=== PATIENT | male | born 1950 | race Caucasian/White ===

== ENCOUNTER → 2016-09-10 | Outpatient (CLI) | payer MEDICARE, OTHER ==
[~2016-09-10] VITALS: Ht 182.9 cm; Wt 151.5 kg
[~2016-09-10] MED LIST: AML2.5T PO; APIX5TAB PO; ASP325TEC PO; ATOR20TA66 PO; BAYETTA; CALC-654 PO; CIPR-225 PO; CYCL10TA9; FINA5TAB6 PO; FLUT9.9S NS; FURO40TA4 PO; HYDR12.5 PO; INSU100V6 SQ; LEVO500T80; LISI-556 PO; METF-380 PO; METO-351 PO; MULT-35 PO; OMEP20TA7 PO; PHEN-640 PO; PIOG15TA9 PO; PIOG30TA PO; POTA10TA10 PO; RT-ALBUINH IH; SITA100T12 PO; TAMS0.4C98 PO; TIOT4MIS5 IH
--- OUTSIDE RECORDS SUMMARY | 2016-09-10 09:14 | XMS REPORT | Continuity of Care Document ---
Author Author [facility] Organization [facility] Address Unknown Phone Unavailable Care Team Providers Care Environmental Permitting Specialist Name Role Phone KATEY FRANCES MD PCP Insurance Providers Payer Name Policy Number Subscriber Name Relationship Wps Medicare [id number] Chris Sheldon 18 Self / Same As Patient [employer] [id number] Chris Sheldon 18 Self / Same As Patient Advance Directives Directive Response Recorded Date/Time Advance Directives No 04/10/16 4:05am Health Care Power of Swatch Checker No 04/10/16 4:05am Organ Donor No 04/10/16 4:05am Resuscitation Status Full Code 04/10/16 4:05am Chief Complaint and Reason for Visit Chief Complaint -Male Reason for Visit [id number] Problems Active Problems Medical Problem Onset Date Status Urinary obstruction Unknown Acute Urinary tract infection Unknown Acute Medications Current Home Medications Medication Dose Units Route Directions Days/Qty Instructions Start Date Aspirin 325 Mg 325 Mg Oral Daily 11/05/14 [[place]] 0.5 Daily 11/05/14 Insulin Glargine 100 Unit/1 Ml 42 Units Sub-Q Am 11/05/14 Insulin Glargine 100 Unit/1 Ml 42 Units Sub-Q Pm 11/05/14 Pioglitazone Hcl 30 Mg 30 Mg Oral Daily 11/05/14 Metformin Hcl (Glucophage) 1,000 Mg 1 Each Oral Twice A Day With Meals 11/05/14 Amlodipine Besylate 2.5 Mg 2.5 Mg G Tube Daily 11/05/14 Lisinopril 5 Mg 5 Mg Oral Daily 11/05/14 Cyclobenzaprine Hcl 10 Mg 30 03/31/16 Tamsulosin Hcl 0.4 Mg 0.4 Mg Oral Daily 30 03/31/16 Ciprofloxacin Hcl 500 Mg 500 Mg Oral Twice A Day 04/03/16 Social History Social History Problem Response Recorded Date/Time Alcohol Use Occasionally Uses 04/10/2016 4:05am Recreational Drug Use No 04/10/2016 4:05am Recent Foreign Travel No 04/10/2016 4:05am Recent Infectious Disease Exposure No 04/10/2016 4:05am Hospitalization with Isolation Denies 04/10/2016 4:05am Smoking Status Former Smoker 04/10/2016 4:05am Do you dip or chew tobacco? No 11/05/2014 7:30am Recent Hopitalizations No 04/10/2016 4:05am Hospitalization with Isolation Denies 04/10/2016 4:05am Query Response Start Date Stop Date Smoking Status Former Smoker 09/30/1989 Hospital Discharge Instructions No hospital discharge instructions. Plan of Care Discharge Date 04/10/16 4:59am Disposition 01 HOME, SELF-CARE Condition at Discharge Improved Instructions/Education Provided Urinary Retention in Men (ED) Prescriptions See Medication Section Referrals XENA STEINER MD - KATEY FRANCES MD - Primary Care Physician KATEY FRANCES MD - Primary Care Physician Additional Instructions/Education All discharge instructions reviewed with patient and/or family. Voiced understanding. Continue [place] catheter. Follow-up with your doctor for recheck and further evaluation. You will need to see urologist. Return for worse pain, fever, vomiting, weakness, breathing problems or other concerns as needed. Functional Status No functional status results. Allergies, Adverse Reactions, Alerts No known allergies. Immunizations No immunization records. Vital Signs Acute Vital Signs Vital Response Date/Time Temperature (Fahrenheit) 98.4 degrees F (97.6 - 99.5) 04/10/2016 4:05am Temperature (Calculated Celsius) 36.64851 degrees C (36.4 - 37.5) 04/10/2016 4:05am Temperature Source Temporal 04/03/2016 7:40am Pulse Rate (adult) 98 bpm (60 - 90) 04/10/2016 4:05am Respiratory Rate 18 bpm (12 - 24) 04/10/2016 4:05am O2 Sat by Pulse Oximetry 97 % (88 - 100) 04/10/2016 4:05am Blood Pressure 181/111 mm Hg 04/10/2016 4:05am Blood Pressure Mean 134 mm Hg 04/10/2016 4:05am Pain Numeric Pain Scale 8 04/10/2016 4:05am Height (Feet) 6 feet 04/10/2016 4:05am Height (Inches) 0 inches 04/10/2016 4:05am Height (Calculated Centimeters) 182.790889 cm 04/10/2016 4:05am Weight (Pounds) 350 pounds 04/10/2016 4:05am Weight (Ounces) 0.0 oz 04/03/2016 10:35am Weight (Calculated Grams) 507682.78 gm 04/03/2016 10:35am Weight (Calculated Kilograms) 158.803103 kilograms 04/10/2016 4:05am Calculated BMI 46.7 04/03/2016 10:35am Capillary Refill Capillary Refill Less Than 3 Seconds 04/10/2016 4:05am Results Laboratory Results Test Name Result Units Flags Reference Collection Date/Time Result Date/ Time Comments Urine Color YELLOW 03/31/2016 7:30am 03/31/2016 7:54am Urine Clarity SLIGHTLY CLOUDY 03/31/2016 7:30am 03/31/2016 7:54am Urine pH 7 5-9 03/31/2016 7:30am 03/31/2016 7:54am Urine Specific [place] 1.010 * 1.016-1.022 03/31/2016 7:30am 2015 7:54am Urine Protein 1+ * NEGATIVE 03/31/2016 7:30am 03/31/2016 7:54am Urine Glucose (UA) NEGATIVE NEGATIVE 03/31/2016 7:30am 03/31/2016 7: 54am Urine RBC (Auto) 1+ * NEGATIVE 03/31/2016 7:30am 03/31/2016 7:54am Urine Ketones NEGATIVE NEGATIVE 03/31/2016 7:30am 03/31/2016 7:54am Urine Nitrite NEGATIVE NEGATIVE 03/31/2016 7:30am 03/31/2016 7:54am Urine Bilirubin NEGATIVE NEGATIVE 03/31/2016 7:30am 03/31/2016 7: 54am Urine Urobilinogen NORMAL MG/DL NORMAL 03/31/2016 7:30am 03/31/2016 7: 54am Urine Leukocyte Esterase NEGATIVE NEGATIVE 03/31/2016 7:30am 2015 7:54am Urine RBC 5-10 /HPF * 03/31/2016 7:30am 03/31/2016 7:54am Urine WBC 0-2 /HPF 03/31/2016 7:30am 03/31/2016 7:54am Urine Bacteria NEGATIVE /HPF 03/31/2016 7:30am 03/31/2016 7:54am Urine Squamous Epithelial Cells RARE /HPF 03/31/2016 7:30am 2015 7:54am Urine Crystals NONE /LPF 03/31/2016 7:30am 03/31/2016 7:54am Urine Casts NONE /LPF 03/31/2016 7:30am 03/31/2016 7:54am Urine Mucus SMALL /LPF * 03/31/2016 7:30am 03/31/2016 7:54am Urine Culture Indicated NO 03/31/2016 7:30am 03/31/2016 7:54am Pending Laboratory Results Test Name Collection Date/Time Pending Microbiology Results Procedure Source Collection Date/Time Procedures No known history of procedures. Encounters Encounter Location Arrival/Admit Date Discharge/Depart Date Attending Provider Departed Emergency Room [facility] 04/10/16 3:56am 04/10 4:59am BENITA VELASQUEZ MD Departed Clinic [facility] 04/03/16 10:11am 04/03/16 11: 01am ELVIRA STEVENSON MD Departed Emergency Room [facility] 04/03/16 7:32am 04/03 8:37am TESS REYES MD Registered Clinic [facility] 04/02/16 9:09am ELVIRA STEVENSON MD Departed Emergency Room [facility] 03/31/16 6:52am 03/31 8:26am TESS REYES MD Recent Diagnosis
== END ==
LOC: PREOP 09:10
PROVIDERS: ATTEND Urology
DX: Z01.818 Encounter for other preprocedural examination (principal); Z11.2 Encounter for screening for other bacterial diseases; N40.0 Benign prostatic hyperplasia without lower urinary tract symptoms
CPT/HCPCS: 87081; 93005

== ENCOUNTER 2016-09-15 07:28 | Day surgery (SDC) | payer MEDICARE, OTHER ==
[~2016-09-15] VITALS: Ht 182.9 cm; Wt 151.5 kg
--- NOTE | 2016-09-15 07:14 | Progress Note-Post Operative ---
Post-Operative Progess Note Pre-Operative Diagnosis BPH WITH PROSTATISM Post-Operative Diagnosis SAME AND MEATAL STENOSIS Post-Op Procedure Note Date of Procedure: Sep 15, 2016 Name of Procedure: UD AND UROLIFT IMPLANT Anesthesia Type GENERAL Estimated blood loss (mL): XENA REYES MD Sep 15, 2016 7:14 am
--- NOTE | 2016-09-15 07:14 | Progress Note-Pre Operative ---
Pre-Operative Progress Note H&P Reviewed The H&P was reviewed, patient examined and no changes noted. Date H&P Reviewed: Sep 15, 2016 Time H&P Reviewed: 07:13 Pre-Operative Diagnosis: BPH WITH PROSTATISM XENA STEINER MD Sep 15, 2016 7:14 am
--- NOTE | 2016-09-15 07:16 | Discharge Inst-Urology ---
Discharge Inst-Urology Discharge Medications New, Converted, or Re-newed RX: RX on Chart Patient Instructions/Follow Up Plan Please make appointment to been seen in office in 2 weeks. Keep bowels soft and moving In one week, if no bleeding, may resume ASA Increase oral fluids for 48 hours and then as needed. Diet and Activity as tolerated. If questions or concerns contact your physician Or seek help at emergency department. XENA STEINER MD Sep 15, 2016 7:16 am
[~2016-09-15 07:28] MED LIST changes: -PHEN-640 PO
--- OUTSIDE RECORDS SUMMARY | 2016-09-15 07:31 | XMS REPORT | Continuity of Care Document ---
Author Author [facility] Organization [facility] Address Unknown Phone Unavailable Care Team Providers Care Vp Digital Marketing Social Media And Crm Name Role Phone KATEY FRANCES MD PCP Insurance Providers Payer Name Policy Number Subscriber Name Relationship Wps Medicare [id number] Chris Sheldon 18 Self / Same As Patient [employer] [id number] Chris Sheldon 18 Self / Same As Patient Advance Directives Directive Response Recorded Date/Time Advance Directives No 04/10/16 4:05am Health Care Power of Decision Support Manager No 04/10/16 4:05am Organ Donor No 04/10/16 4:05am Resuscitation Status Full Code 04/10/16 4:05am Chief Complaint and Reason for Visit Chief Complaint -Male Reason for Visit [id number] Problems Active Problems Medical Problem Onset Date [...] - 99.5) 04/10/2016 4:05am Temperature (Calculated Celsius) 36.99543 degrees C (36.4 - 37.5) 04/10/2016 4:05am [...] 0 inches 04/10/2016 4:05am Height (Calculated Centimeters) 182.587594 cm 04/10/2016 4:05am Weight (Pounds) 350 pounds 04/10/2016 4:05am Weight (Ounces) 0.0 oz 04/03/2016 10:35am Weight (Calculated Grams) 408617.78 gm 04/03/2016 10:35am Weight (Calculated Kilograms) 158.322239 kilograms 04/10/2016 4:05am Calculated BMI 46.7 04/03/2016 10:35am Capillary Refill Capillary Refill Less Than 3 Seconds 04/10/2016 4:05am Results Laboratory Results Test Name Result Units Flags Reference Collection Date/Time Result Date/ Time Comments Urine Color YELLOW 03/31/2016 7:30am 03/31/2016 7:54am Urine Clarity SLIGHTLY CLOUDY 03/31/2016 7:30am 03/31/2016 7:54am Urine pH 7 5-9 03/31/2016 7:30am 03/31/2016 7:54am Urine Specific [place] 1.010 * 1.016-1.022 03/31/2016 7:30am 2015 7:54am [...] Date Attending Provider Departed Emergency Room [facility] 04/10/16 3:56am 04/10 4:59am BENITA VELASQUEZ MD Departed Clinic [facility] 04/03/16 10:11am 04/03/16 11: 01am ELVIRA STEVENSON MD Departed Emergency Room [facility] 04/03/16 7:32am 04/03 8:37am TESS REYES MD Registered Clinic [facility] 04/02/16 9:09am ELVIRA STEVENSON MD Departed Emergency Room [facility] 03/31/16 6:52am 03/31 8:26am TESS REYES MD Recent Diagnosis
--- OUTSIDE RECORDS SUMMARY | 2016-09-15 07:31 | XMS REPORT | Continuity of Care Document ---
Author Author [facility] Organization [facility] Address Unknown Phone Unavailable Care Team Providers Care Industrial Nurse Name Role Phone KATEY FRANCES MD PCP Insurance Providers Payer Name Policy Number Subscriber Name Relationship Wps Medicare [id number] Chris Sheldon 18 Self / Same As Patient [employer] [id number] Chris Sheldon 18 Self / Same As Patient Advance Directives Directive Response Recorded Date/Time Advance Directives No 04/10/16 4:05am Health Care Power of Centrifugal Drier Operator No 04/10/16 4:05am Organ Donor No 04/10/16 4:05am Resuscitation Status Full Code 04/10/16 4:05am Chief Complaint and Reason for Visit Chief Complaint -Male Reason for Visit [id number] Problems Active Problems Medical Problem Onset Date [...] - 99.5) 04/10/2016 4:05am Temperature (Calculated Celsius) 36.92788 degrees C (36.4 - 37.5) 04/10/2016 4:05am [...] 0 inches 04/10/2016 4:05am Height (Calculated Centimeters) 182.854207 cm 04/10/2016 4:05am Weight (Pounds) 350 pounds 04/10/2016 4:05am Weight (Ounces) 0.0 oz 04/03/2016 10:35am Weight (Calculated Grams) 863938.78 gm 04/03/2016 10:35am Weight (Calculated Kilograms) 158.460377 kilograms 04/10/2016 4:05am Calculated BMI 46.7 04/03/2016 10:35am Capillary Refill Capillary Refill Less Than 3 Seconds 04/10/2016 4:05am Results Laboratory Results Test Name Result Units Flags Reference Collection Date/Time Result Date/ Time Comments Urine Color YELLOW 03/31/2016 7:30am 03/31/2016 7:54am Urine Clarity SLIGHTLY CLOUDY 03/31/2016 7:30am 03/31/2016 7:54am Urine pH 7 5-9 03/31/2016 7:30am 03/31/2016 7:54am Urine Specific [place] 1.010 * 1.016-1.022 03/31/2016 7:30am 2015 7:54am [...] Date Attending Provider Departed Emergency Room [facility] 04/10/16 3:56am 04/10 4:59am BENITA VELASQUEZ MD Departed Clinic [facility] 04/03/16 10:11am 04/03/16 11: 01am ELVIRA STEVENSON MD Departed Emergency Room [facility] 04/03/16 7:32am 04/03 8:37am TESS REYES MD Registered Clinic [facility] 04/02/16 9:09am ELVIRA STEVENSON MD Departed Emergency Room [facility] 03/31/16 6:52am 03/31 8:26am TESS REYES MD Recent Diagnosis
[2016-09-15] MEDS ORDERED: LEVOFLOXACIN 250 MG/50 ML IVPB 50 ML ONE (07:41)
[2016-09-15] MEDS ORDERED: FAMOTIDINE 20MG/2ML IV (PEPCID) IV ONE (08:15)
[2016-09-15] MEDS ORDERED: LACTATED RINGERS 1,000 ML IV PRN (08:15)
[2016-09-15 08:16] VITALS: BP 158/79
[2016-09-15] MEDS ORDERED: LEVOFLOXACIN 250 MG/D5W 50 ML (PRE-MIX) IV ONE (08:30)
[2016-09-15] MEDS ORDERED: LIDOCAINE PF 2% 10 ML (XYLOCAINE) AMP ONE (09:10)
[2016-09-15] MEDS ORDERED: ONDANSETRON 4 MG/2 ML (SDV) Z0FRAN ONE (09:10)
[2016-09-15] MEDS ORDERED: LACTATED RINGERS 1,000 ML IV ONE (09:10)
[2016-09-15] MEDS ORDERED: proPOfol 200 MG/20 ML (DIPRIVAN) VIAL IV ONE (09:10)
[2016-09-15] MEDS ORDERED: MIDAZOLAM 2 MG/2 ML (VERSED) VIAL ONE (09:11)
[2016-09-15] MEDS ORDERED: fentaNYL INJECTION 100 MCG/2 ML AMP ONE (09:11)
[2016-09-15] MEDS ORDERED: SEVOFLURANE (ULTANE) 15 ML INHAL SOLN ONE (09:54)
[2016-09-15] MEDS ORDERED: PROMETHAZINE INJ 25 MG/ML (PHENERGAN) AMP IV PRN ×2 (10:15→11:30)
[2016-09-15] MEDS ORDERED: ONDANSETRON 4 MG/2 ML (SDV) Z0FRAN IV PRN ×2 (10:15→11:30)
[2016-09-15] MEDS ORDERED: morphine INJ 10 MG/ML 1ML (SYR OR VIAL) IV PRN ×2 (10:15→11:30)
[2016-09-15 10:50] VITALS: BP 162/73
[2016-09-15] MEDS ORDERED: CIPR-225 PO (10:58)
[2016-09-15] MEDS ORDERED: PHEN-640 PO (10:58)
[2016-09-15 11:20] VITALS: BP 159/71
[2016-09-15 11:40] VITALS: BP_SYST 158; BP_SYST 159; BP_DIAS 71; BP_DIAS 79
--- NOTE | 2016-09-16 07:34 | OPERATIVE REPORT ---
PROCEDURE PHYSICIAN: XENA STEINER DATE OF PROCEDURE: 09/15/2016 PREOPERATIVE DIAGNOSIS: BPH with prostatism. POSTOPERATIVE DIAGNOSIS: 1. BPH with prostatism. 2. Meatal stenosis. OPERATION PERFORMED: Urethral dilatation and UroLift implant. SURGEON: Dr. Steiner. ANESTHESIA: General. COMPLICATIONS: None. PROCEDURE: Under satisfactory general anesthesia, the patient in lithotomy position, the genitalia were prepped and draped in the usual sterile fashion. Meatal stenosis was found and dilated from 20-Taiwanese to 24-Taiwanese to accommodate the 20-Taiwanese cystoscope, again visualized the 2 lateral lobes enlargement with a total sizes calculated preoperatively at 68 mL. There was no median lobe. We went ahead and inserted 6 UroLift implants, 3 on each side with excellent opening anteriorly with minimal bleeding. The bladder was evacuated and the cystoscope was removed. Estimated blood loss negligible. The patient tolerated the procedure and anesthesia well and was sent to recovery room in stable condition. Job ID: [id number] Dictated Date: 09/15/2016 10:03:35 Engineering Tech Date: 09/16/2016 07:31:10 / artur
== END 2016-09-15 11:40 | disposition home or self-care (01) ==
LOC: SDC 07:28
PROVIDERS: ATTEND Urology
DX: N40.0 Benign prostatic hyperplasia without lower urinary tract symptoms (principal); N35.9 Urethral stricture, unspecified; E11.9 Type 2 diabetes mellitus without complications; Z79.4 Long term (current) use of insulin
CPT/HCPCS: 82962

== ENCOUNTER → 2016-10-27 | Outpatient (CLI) | payer MEDICARE, OTHER ==
[~2016-10-27] MED LIST changes: +PHEN-640 PO
--- NOTE | 2016-10-28 11:13 | ECHOCARDIOGRAPHY REPORT ---
PROCEDURE PHYSICIAN: ALICIA ROWE DATE OF PROCEDURE: 10/27/2016 TWO DIMENSIONAL ECHOCARDIOGRAM REPORT PRIMARY PHYSICIAN: OTHER PHYSICIAN: REFERRING PHYSICIAN: Dr. Francois ORDERING PHYSICIAN: INDICATION FOR THE PROCEDURE: Paroxysmal atrial fibrillation, hypertension. MEASUREMENTS DERIVED VALUES LV DIAMETER (LAX) NORMALS NORMALS Diastolic 3.7 (3.6-5.2) Eject. Fract. 60% (60%+/-6%) Systolic (2.3-3.9) Diastolic Vol. % Shortening (0.22-0.42) Systolic Vol. Aortic Root IVS THICKNESS Diastolic 1.2 (0.6-1.1) LVPW THICKNESS Diastolic 1.2 (0.6-1.1) LA DIAMETER Systolic 3.8 (2.1-3.7) FINDINGS: 1. Technical quality is good. 2. The left ventricle is normal in size with normal contractility. Systolic function appeared to be normal. Estimated ejection fraction 60%. 3. The left atrium is normal in size. No clot or thrombus were seen within the left atrium. 4. The right atrium and right ventricle are normal in size. No clot or thrombus were seen within the right side. 5. Mitral valve is normal in morphology with mild mitral regurgitation noted by color Doppler flow. No mitral valve prolapse. No mitral valve stenosis. 6. Aortic valve is trileaflet with normal opening and closing pattern. No significant aortic valve stenosis or regurgitation was seen. 7. Tricuspid valve is normal in morphology with mild tricuspid regurgitation noted by color Doppler flow. Doppler across tricuspid valve estimated pulmonary artery pressure of 23+ right atrial pressure. 8. Pulmonic valve is functioning normally. 9. No pericardial effusion. CONCLUSION: 1. Mild left ventricular hypertrophy noted diffusely. Systolic function appeared to be normal. Estimated ejection fraction 60%. 2. Mild mitral and tricuspid regurgitation. 3. Estimated pulmonary artery pressure of 30 mmHg. Job ID: [id number] Dictated Date: 10/27/2016 14:56:15 K9 Handler Date: 10/28/2016 11:09:09 / nicole
== END ==
LOC: CARD 08:10
PROVIDERS: ATTEND Internal Medicine Cardiovascular Disease
DX: I48.0 Paroxysmal atrial fibrillation (principal); I10 Essential (primary) hypertension; E13.9 Other specified diabetes mellitus without complications; J44.9 Chronic obstructive pulmonary disease, unspecified; M53.3 Sacrococcygeal disorders, not elsewhere classified
CPT/HCPCS: 93306

== ENCOUNTER → 2016-11-02 | Outpatient (CLI) | payer MEDICARE, OTHER ==
[~2016-11-02] VITALS: Ht 185.4 cm; Wt 155.6 kg
[~2016-11-02] MED LIST changes: +CATHETER FLUSH 10 ML SYR IV PRN; +REGADENOSON 0.4 MG/5 ML SYR (LEXISCAN) IV ONE
[2016-11-02 09:14] VITALS: BP 163/99
[2016-11-02 09:16] VITALS: BP 192/103
--- NOTE | 2016-11-02 13:40 | STRESS TEST ---
DATE OF SERVICE: 11/02/2016 REFERRING PHYSICIAN: Dr. Francois. PROCEDURE: Lexiscan Myoview stress test. INDICATION: Baseline heart rate is 90, baseline blood pressure 149/53, baseline EKG is sinus rhythm with no ischemic changes, right bundle branch block. IN SUMMARY: The patient was injected with 10.78 mCi of technetium-99 Myoview and the resting images were obtained. Then the patient received 0.4 mg of Lexiscan followed by 33.8 mCi of technetium-99 Myoview. Throughout the test, there were no EKG changes. The resting and stress images were reviewed and compared in the short axis, horizontal long axis and vertical long axis views. Review of images showed diaphragmatic attenuation with typical male pattern. No significant ischemia or infarction was seen. Mild increased uptake at the inferoapical segment with subtle reversibility. IN SUMMARY: 1. The patient tolerated Lexiscan well. 2. Diaphragmatic attenuation with typical male pattern. 3. No significant ischemia or infarction on SPECT images. 4. Normal left ventricular size with normal contractility. Calculated ejection fraction 61%. Job ID: [id number] DocumentID: [id number] Dictated Date: 11/02/2016 12:06:42 Palliative Care Nurse Date: 11/02/2016 13:01:02 Dictated By: ALICIA ROWE MD
== END ==
LOC: CARD 07:44
PROVIDERS: ATTEND Internal Medicine Cardiovascular Disease
DX: I48.0 Paroxysmal atrial fibrillation (principal); I10 Essential (primary) hypertension; E11.9 Type 2 diabetes mellitus without complications; J44.9 Chronic obstructive pulmonary disease, unspecified; M53.3 Sacrococcygeal disorders, not elsewhere classified
CPT/HCPCS: 78452; 93017

== ENCOUNTER → 2017-06-29 | Outpatient (CLI) | payer MEDICARE, OTHER ==
[~2017-06-29] MED LIST changes: -CATHETER FLUSH 10 ML SYR IV PRN; -REGADENOSON 0.4 MG/5 ML SYR (LEXISCAN) IV ONE
--- NOTE | 2017-06-29 14:52 | Diagnostic Imaging Report ---
PROCEDURE: US Thyroid. TECHNIQUE: Multiple Real-time grayscale images were obtained of the thyroid in various projections. INDICATION: Abnormal thyroid exam. Lump. FINDINGS: The right thyroid lobe is 4.7 x 1.5 x 1.6 cm. The left lobe is 4.8 x 1.6 x 2 cm. In the lower aspect of the right thyroid lobe, there is a 2 x 1.4 x 2.1 cm hypoechoic nodule. Internal vascularity is demonstrated with color Doppler. The left lobe demonstrates an inferior nodule measuring 0.6 x 0.8 cm. No prior studies are available for comparison. IMPRESSION: Nonspecific thyroid nodules up to 2.1 cm in the inferior aspect of the right lobe. Evaluation with ultrasound guided biopsy is suggested. The report was faxed to the office of Dr. Shivam Francois by NASREEN@2:55 PM. Dictated by: Dictated on workstation # [id number]
== END ==
LOC: RAD 12:02
PROVIDERS: ATTEND Internal Medicine
DX: E04.2 Nontoxic multinodular goiter (principal)
CPT/HCPCS: 76536

== ENCOUNTER → 2017-07-28 | Outpatient (CLI) | payer MEDICARE, OTHER ==
[~2017-07-28] VITALS: Ht 185.4 cm; Wt 155.6 kg
[~2017-07-28] MED LIST changes: +LIDOCAINE 1% INJ 20 ML (XYLOCAINE) VIAL INJ ONE; +LIDOCAINE 1% INJ 50 ML (XYLOCAINE) VIAL ONE
[2017-07-28 08:00] VITALS: BP 134/81
[2017-07-28 08:56] VITALS: BP 130/80
--- NOTE | 2017-07-28 11:52 | Diagnostic Imaging Report ---
INDICATION: Right thyroid nodule. The patient presents for an ultrasound guided thyroid biopsy. TECHNIQUE: The patient was brought to the procedure room and placed on the bed in the supine position. Ultrasound imaging over the neck was performed to evaluate for an appropriate entry site. The right neck was then prepped and draped in the usual sterile fashion. A small amount of 1% lidocaine was utilized for local anesthesia. An 18-gauge coaxial Temno needle was advanced and placed with the tip at the margin of the hypoechoic nodule noted at the junction of the right lobe and isthmus. A total of three core biopsies was obtained. The needle was removed and hemostasis was obtained. The patient tolerated the procedure well and left the Department in stable condition. IMPRESSION: Successful ultrasound-guided core biopsy of the hypoechoic solid nodule in the right lobe of the thyroid. Dictated by: Dictated on workstation # [id number]
== END ==
LOC: RAD 07:40
PROVIDERS: ATTEND Internal Medicine
DX: E04.1 Nontoxic single thyroid nodule (principal)

== ENCOUNTER → 2019-03-16 | Outpatient (CLI) | payer MEDICARE, OTHER ==
[~2019-03-16] MED LIST changes: -LIDOCAINE 1% INJ 20 ML (XYLOCAINE) VIAL INJ ONE; -LIDOCAINE 1% INJ 50 ML (XYLOCAINE) VIAL ONE
--- NOTE | 2019-03-16 11:59 | Diagnostic Imaging Report ---
PROCEDURE: US Thyroid. TECHNIQUE: Multiple real-time grayscale images were obtained of the thyroid in various projections. INDICATION: Followup thyroid nodules. Correlation is made with prior thyroid ultrasound from 06/29/2017. The right lobe of thyroid measures 4.8 x 1.9 x 2.1 cm and the left lobe measures 4.5 x 1.5 x 2.5 cm. Isthmus is 4 mm in thickness. Circumscribed hypoechoic solid nodule lower pole right lobe is again noted. This measures 2.2 x 1.8 x 2.2 cm. This shows very little change when compared to the prior exam. No internal vascularity is seen. This was previously biopsied. There is a hypoechoic nodule lower pole left lobe approximately 7 mm x 6 mm, stable. No new mass is seen. Impression: Stable thyroid ultrasound when compared examination from 06/29/2017. Dictated by: Dictated on workstation # [id number]
== END ==
LOC: RAD 10:51
PROVIDERS: ATTEND Internal Medicine
DX: E04.2 Nontoxic multinodular goiter (principal)
CPT/HCPCS: 76536

== ENCOUNTER 2019-06-30 08:21 | Outpatient (CLI) | payer MEDICARE, OTHER ==
[~2019-06-30] VITALS: Ht 182 cm; Wt 158.4 kg
[2019-06-30 08:43] VITALS: BP 151/75
[2019-06-30 09:14] LABS: BASOPHILS % (AUTO) 0 % (0-10); EOSINOPHILS % (AUTO) 0 % (0-10); HEMATOCRIT 36 % (40-54); HEMOGLOBIN 11.4 G/DL (13.3-17.7); LYMPHOCYTES # (AUTO) 1.1 X 10^3 (1.0-4.0); LYMPHOCYTES % (AUTO) 9 % (12-44); MEAN CORPUSCULAR HEMOGLOBIN 27 PG (25-34); MEAN CORPUSCULAR HGB CONC 32 G/DL (32-36); MEAN CORPUSCULAR VOLUME 84 FL (80-99); MEAN PLATELET VOLUME 10.4 FL (7.4-10.4); MONOCYTES # (AUTO) 0.5 X 10^3 (0.0-1.0); MONOCYTES % (AUTO) 5 % (0-12); NEUTROPHILS # (AUTO) 9.9 X 10^3 (1.8-7.8); NEUTROPHILS % (AUTO) 86 % (42-75); PLATELET COUNT 279 10^3/uL (130-400); RED CELL DISTRIBUTION WIDTH 15.2 % (10.0-14.5); WHITE BLOOD COUNT 11.5 10^3/uL (4.3-11.0)
[2019-06-30 09:14] LABS: BILIRUBIN,URINE NEGATIVE (NEGATIVE); CLARITY,URINE CLEAR; COLOR,URINE YELLOW; GLUCOSE, URINE (UA) NEGATIVE (NEGATIVE); KETONES,URINE NEGATIVE (NEGATIVE); LEUKOCYTE ESTERASE ,URINE NEGATIVE (NEGATIVE); NITRITE,URINE NEGATIVE (NEGATIVE); PH,URINE 5.5 (5-9); PROTEIN,URINE NEGATIVE (NEGATIVE)
[2019-06-30 09:24] LABS: BACTERIA,URINE TRACE /HPF; SQUAMOUS EPITHELIAL CELL,UR 0-2 /HPF
[2019-06-30 09:25] LABS: INR 1.3 (0.8-1.4); PROTHROMBIN TIME PATIENT 16.6 SEC (12.2-14.7)
[2019-06-30 09:34] LABS: ALBUMIN 4.2 GM/DL (3.2-4.5); BILIRUBIN,TOTAL 0.8 MG/DL (0.1-1.0); CALCIUM 8.4 MG/DL (8.5-10.1); CREATININE SERUM 1.22 MG/DL (0.60-1.30); POTASSIUM 5.3 MMOL/L (3.6-5.0); TOTAL PROTEIN 7.6 GM/DL (6.4-8.2)
[2019-06-30 09:48] LABS: ERYTHROCYTE SEDIMENTATION RATE 47 MM/HR (0-30)
--- NOTE | 2019-06-30 10:09 | Diagnostic Imaging Report ---
INDICATION: Preop for knee replacement PA and lateral chest obtained at 0916 a.m. Heart and mediastinal silhouette are normal in appearance. The lungs are clear. There is no pneumothorax or pleural fluid. There are diffuse degenerative findings in the thoracic spine. IMPRESSION: No acute process in the chest Dictated by: Dictated on workstation # [id number]
[2019-06-30] MEDS ORDERED: AMLO10TA7 PO (13:10)
[2019-06-30] MEDS ORDERED: OMEP20CA13 PO (13:10)
[2019-06-30] MEDS ORDERED: METO-370 PO (13:10)
[2019-06-30] MEDS ORDERED: HYDR25TA4 PO (13:10)
[2019-06-30] MEDS ORDERED: LISI40TA PO (13:10)
[2019-06-30] MEDS ORDERED: METF-399 PO (13:10)
[2019-06-30] MEDS ORDERED: INSU100V6 SQ (13:10)
[2019-06-30] MEDS ORDERED: MAGN400T39 PO (13:10)
[2019-06-30] MEDS ORDERED: POTA20TA15 PO (13:10)
[2019-06-30] MEDS ORDERED: TAMS0.4C98 PO (13:10)
[2019-06-30] MEDS ORDERED: PIOG30TA71 PO (13:10)
[2019-06-30] MEDS ORDERED: MULT1TAB69 PO (13:10)
[2019-06-30] MEDS ORDERED: TIOT4MIS2 IH (13:12)
== END 2019-06-30 12:39 | disposition home or self-care (01) ==
LOC: PREOP 08:21
PROVIDERS: ATTEND Orthopaedic Surgery
DX: Z01.818 Encounter for other preprocedural examination (principal); M17.12 Unilateral primary osteoarthritis, left knee; R53.83 Other fatigue
CPT/HCPCS: 36415; 71046; 80053; 81000; 85025; 85610; 85652; 86850; 86900; 86901; 87081; 93005

== ENCOUNTER 2019-12-15 08:05 | Outpatient (RCR) | payer MEDICARE, OTHER ==
[~2019-12-15] VITALS: Ht 185 cm; Wt 156.0 kg
[~2019-12-15 08:05] MED LIST changes: +ALOG25TA PO; +AMLO10TA7 PO; +HYDR25TA4 PO; +LISI40TA PO; +MAGN400T39 PO; +METF-399 PO; +METO50TA7 PO; +MULT1TAB69 PO; +OMEP20CA18 PO; +PIOG30TA71 PO; +POTA20TA15 PO; +ROSU5TAB PO; -TAMS0.4C98 PO; +TIOT4MIS2 IH; +TMSL.4C PO
== END 2019-12-15 14:03 | disposition home or self-care (01) ==
LOC: PREOP 08:05
PROVIDERS: ATTEND Surgery
DX: Z01.818 Encounter for other preprocedural examination (principal); Z11.59 Encounter for screening for other viral diseases; Z80.0 Family history of malignant neoplasm of digestive organs
CPT/HCPCS: 87635

== ENCOUNTER 2019-12-20 08:47 | Day surgery (SDC) | payer MEDICARE, OTHER ==
[~2019-12-20] VITALS: Ht 185 cm; Wt 156.0 kg
[2019-12-20] MEDS ORDERED: LACTATED RINGERS 1,000 ML IV STA (09:01)
[2019-12-20] MEDS ORDERED: LACTATED RINGERS 1,000 ML IV ONE (09:04)
[2019-12-20 09:14] VITALS: BP 146/75
[2019-12-20] MEDS ORDERED: LIDOCAINE JELLY 2% 6 ML SYRINGE MM PRN (09:15)
[2019-12-20] MEDS ORDERED: PROPOFOL INJECTION 50 ML IV ONE (09:48)
[2019-12-20] MEDS ORDERED: LIDOCAINE JELLY 2% 6 ML SYRINGE ONE (09:59)
[2019-12-20] MEDS ORDERED: MIDAZOLAM 2 MG/2 ML (VERSED) VIAL ONE (10:08)
--- NOTE | 2019-12-20 10:08 | Progress Note-Pre Operative ---
Pre-Operative Progress Note H&P Reviewed The H&P was reviewed, patient examined and no changes noted. Date Seen by Provider: Dec 20, 2019 Time Seen by Provider: :30 Date H&P Reviewed: Dec 20, 2019 Time H&P Reviewed: 09:30 Pre-Operative Diagnosis: screening colonoscopy LAURA LOPEZ MD Dec 20, 2019 10:08
--- NOTE | 2019-12-20 10:10 | Discharge Inst-Surgical ---
D/C Lap Instructions-JOHN Follow Up Activity as tolerated High Fiber Diet 25g or more per day Avoid Alcohol, Caffeine, Spicy [place] and Acid foods. Drink 64 fluid oz or more of fluids per day. Symptoms to Report: Fever over 101 degree F, Nausea/Vomiting If any problems/questions: Contact your physician or go to Emergency Room LAURA LOPEZ MD Dec 20, 2019 10:10
[2019-12-20] MEDS ORDERED: HYDROcodone/APAP 5 MG/325 MG (LORTAB) TAB PO PRN (10:15)
[2019-12-20] MEDS ORDERED: morphine INJ 10 MG/ML 1ML (SYR OR VIAL) IVP PRN ×2 (10:15)
[2019-12-20] MEDS ORDERED: ONDANSETRON 4 MG/2 ML (SDV) Z0FRAN IVP PRN (10:15)
[2019-12-20] MEDS ORDERED: ACETAMINOPHEN 325 MG TABLET PO PRN (10:15)
[2019-12-20 10:25] VITALS: BP 122/72
[2019-12-20 10:30] VITALS: BP 112/61
[2019-12-20 10:35] VITALS: BP_SYST 112; BP_SYST 114; BP_DIAS 73; BP_DIAS 77
--- NOTE | 2019-12-20 10:37 | Progress Note-Post Operative ---
Post-Operative Progess Note Surgeon (s)/Motor Vehicle Field Representative (s) Surgeon LAURA LOPEZ MD Motor Vehicle Field Representative: none Pre-Operative Diagnosis screening colonoscopy Post-Operative Diagnosis benign anal tag, chronic stage 2 ext and int hemorrhoids, mild sigmoid diverticulosis. Procedure & Operative Findings Date of Procedure 12/20/19 Procedure Performed/Findings colonoscopy Anesthesia Type mac Estimated Blood Loss Estimated blood loss (mL): minimal Specimens/Packing Specimens Removed none LAURA LOPEZ MD Dec 20, 2019 10:37
--- NOTE | 2019-12-20 10:49 | Anesthesia-General Post-Op ---
MAC Patient Condition Mental Status/LOC: Same as Preop Cardiovascular: Satisfactory Nausea/Vomiting: Absent Respiratory: Satisfactory Pain: Controlled Complications: Absent Post Op Complications Complications None Follow Up Care/Instructions Patient Instructions None needed. Anesthesiology Discharge Order Discharge Order Patient is doing well, no complaints, stable vital signs, no apparent adverse anesthesia problems. DAMON PASTOR DO Dec 20, 2019 10:48
[2019-12-20 11:01] VITALS: BP 143/62
[2019-12-20 11:02] VITALS: BP 143/62
--- NOTE | 2019-12-20 15:56 | OPERATIVE REPORT ---
DATE OF SERVICE: 12/20/2019 ATTENDING PRIMARY CARE PHYSICIAN: Dr. Shivam Francois. PREOPERATIVE DIAGNOSIS: Screening colonoscopy with a remote family history of colon cancer. POSTOPERATIVE DIAGNOSES: Benign anal skin tag, chronic stage II external and internal hemorrhoids, mild sigmoid diverticulosis. PROCEDURE: Colonoscopy. SURGEON: Laura Lopez MD. ANESTHESIA: Monitored anesthesia care. ESTIMATED BLOOD LOSS: Minimal. FINDINGS: Benign anal tag, chronic stage II external and internal hemorrhoids, mild sigmoid diverticulosis. DISPOSITION: The patient tolerated the procedure well. INDICATIONS: The patient is a 69-year-old male referred over to us for screening colonoscopy. He does have a remote family history of colon cancer with his paternal grandfather having the disease. His last colonoscopy was approximately 5 years ago and he believes this to be normal. For the most part, he is doing well, does not report any major issues with diarrhea nor constipation as well as no red blood per rectum nor any dark tarry stools. He did have a right hemicolectomy in 1971 while he was in the . DESCRIPTION OF PROCEDURE: The patient was brought to the endoscopy suite, laid in left lateral decubitus position. After adequate IV pain and sedative medications and monitored anesthesia care, a digital rectal examination was performed. An anal tag was identified, which appeared to be benign. There was chronic stage II external and internal hemorrhoids, not actively edematous nor inflamed and no bleeding. Normal sphincter tone was felt and there were no palpable masses. There were no abnormalities detected on prostatic urethral examination. The endoscope was then intubated to the anus and rectum gently insufflated. The endoscope was then advanced to the valves of Frausto and rectum with no polyps or any neoplasms identified. Through the sigmoid colon, mild sigmoid diverticulosis identified. There were no mucosal inflammatory changes to indicate any diverticulitis. The endoscope was then advanced to the remainder of the descending, transverse and ascending colon to the cecum. These segments were normal. There were no polyps or any neoplasms identified throughout the colon or rectum. The endoscope was then slowly withdrawn while taking a second look and suctioning of residual air with no additional findings. The patient tolerated the procedure well. We will recommend medical management with a high fiber diet with 30 grams of fiber daily as well as significant amounts of water to promote soft stools on a daily basis. No polyps were identified and he does not have a first degree family history of colon cancer and so he may wait 10 years for his next colonoscopy if he is asymptomatic. Job ID: [id number] DocumentID: [id number] Dictated Date: 12/20/2019 10:32:57 Sheep Shearer Date: 12/20/2019 15:56:02 Dictated By: LAURA LOPEZ MD MTDD
== END 2019-12-20 11:05 | disposition home or self-care (01) ==
LOC: ENDO 08:47
PROVIDERS: ATTEND Surgery
DX: Z12.11 Encounter for screening for malignant neoplasm of colon (principal); K64.4 Residual hemorrhoidal skin tags; K64.1 Second degree hemorrhoids; K57.30 Diverticulosis of large intestine without perforation or abscess without bleeding; K21.9 Gastro-esophageal reflux disease without esophagitis; I10 Essential (primary) hypertension; I48.91 Unspecified atrial fibrillation; E78.5 Hyperlipidemia, unspecified; J44.9 Chronic obstructive pulmonary disease, unspecified; G47.33 Obstructive sleep apnea (adult) (pediatric); E11.9 Type 2 diabetes mellitus without complications; E78.00 Pure hypercholesterolemia, unspecified; Z79.899 Other long term (current) drug therapy; Z79.84 Long term (current) use of oral hypoglycemic drugs; Z99.89 Dependence on other enabling machines and devices; Z79.891 Long term (current) use of opiate analgesic; Z79.01 Long term (current) use of anticoagulants; Z90.49 Acquired absence of other specified parts of digestive tract; Z87.891 Personal history of nicotine dependence; Z80.1 Family history of malignant neoplasm of trachea, bronchus and lung; Z80.0 Family history of malignant neoplasm of digestive organs
CPT/HCPCS: 82962

== ENCOUNTER 2020-03-25 05:36 | Outpatient (RCR) | payer MEDICARE, OTHER ==
[2020-03-14 09:58] VITALS: BP 131/64
[2020-03-14 10:37] LABS: BASOPHILS % (AUTO) 0 % (0-10); EOSINOPHILS # (AUTO) 0.2 10^3/uL (0.0-0.3); EOSINOPHILS % (AUTO) 3 % (0-10); HEMATOCRIT 36 % (40-54); HEMOGLOBIN 11.5 G/DL (13.3-17.7); LYMPHOCYTES # (AUTO) 1.8 X 10^3 (1.0-4.0); LYMPHOCYTES % (AUTO) 27 % (12-44); MEAN CORPUSCULAR HEMOGLOBIN 26 PG (25-34); MEAN CORPUSCULAR HGB CONC 32 G/DL (32-36); MEAN CORPUSCULAR VOLUME 81 FL (80-99); MEAN PLATELET VOLUME 10.2 FL (7.4-10.4); MONOCYTES # (AUTO) 0.6 X 10^3 (0.0-1.0); MONOCYTES % (AUTO) 9 % (0-12); NEUTROPHILS # (AUTO) 4.3 X 10^3 (1.8-7.8); NEUTROPHILS % (AUTO) 61 % (42-75); PLATELET COUNT 297 10^3/uL (130-400)
[2020-03-14 10:39] LABS: BILIRUBIN,URINE NEGATIVE (NEGATIVE); CLARITY,URINE CLEAR; COLOR,URINE YELLOW; GLUCOSE, URINE (UA) NEGATIVE (NEGATIVE); KETONES,URINE NEGATIVE (NEGATIVE); LEUKOCYTE ESTERASE ,URINE NEGATIVE (NEGATIVE); NITRITE,URINE NEGATIVE (NEGATIVE); PROTEIN,URINE NEGATIVE (NEGATIVE)
[2020-03-14 10:48] LABS: INR 1.2 (0.8-1.4); PROTHROMBIN TIME PATIENT 15.2 SEC (12.2-14.7)
[2020-03-14 10:58] LABS: ALBUMIN 4.2 GM/DL (3.2-4.5); BILIRUBIN,TOTAL 1.1 MG/DL (0.1-1.0); CREATININE SERUM 1.33 MG/DL (0.60-1.30); TOTAL PROTEIN 7.6 GM/DL (6.4-8.2)
[2020-03-14 10:59] LABS: BACTERIA,URINE NEGATIVE /HPF; SQUAMOUS EPITHELIAL CELL,UR 0-2 /HPF
[2020-03-14 11:01] LABS: ERYTHROCYTE SEDIMENTATION RATE 33 MM/HR (0-30)
[~2020-03-25] VITALS: Ht 185 cm; Wt 153.6 kg
[~2020-03-25 05:36] MED LIST changes: +MULT-567 PO; -MULT1TAB69 PO
== END 2020-03-25 08:57 | disposition home or self-care (01) ==
LOC: PREOP 05:36
PROVIDERS: ATTEND Orthopaedic Surgery
DX: Z01.812 Encounter for preprocedural laboratory examination (principal); Z01.810 Encounter for preprocedural cardiovascular examination; Z01.811 Encounter for preprocedural respiratory examination; M17.12 Unilateral primary osteoarthritis, left knee; R53.83 Other fatigue; Z20.828 Contact with and (suspected) exposure to other viral communicable diseases; Z11.2 Encounter for screening for other bacterial diseases
CPT/HCPCS: 36415; 80053; 81000; 85025; 85610; 85652; 86850; 86900; 86901; 87081; 87635

== ENCOUNTER 2020-03-30 12:05 | Inpatient (IN) | payer MEDICARE, OTHER ==
[~2020-03-30] VITALS: Ht 182.9 cm; Wt 149.0 kg
[~2020-03-30 12:05] MED LIST changes: +BISACODYL 10 MG SUPP (DULCOLAX) PR PRN; +CALCIUM CARBONATE 500 MG (TUMS) TAB.CHEW PO PRN; +DOCUSATE SODIUM 100 MG (COLACE) CAP PO PRN; +FLEET ENEMA ADULT 1 EA BTL PR PRN; +LACTULOSE SYRUP 10GM/15ML (ENULOSE) 30ML UDC PO PRN; +LOPERAMIDE 2 MG (IMODIUM) TABLET PO PRN; +ONDANSETRON 4 MG (ZOFRAN) ORAL DISSOLVE TAB PO PRN; +SENNA W/DOCUSATE (SENOKOT S) TABLET PO SCH; +diphenhydrAMINE 25 MG TAB (BENADRYL) PO PRN; +guaiFENesin/CODEINE (ROBITUSSIN AC) 10ML UDC PO PRN
--- NOTE | 2020-03-30 12:05 | NUR ---
WILD WAGONER admitted to room 229-1, with an admitting diagnosis of RIGHT TOTAL KNEE, on 03/30/20 from via , accompanied by PYSICAL THERAPY STAFF.WILD WAGONER introduced to surroundings, call light, bed controls, phone, TV, temperature control, lights, meal times, smoking policy, visitor policy, side rail policy, bathrooms and showers. Patient Rights given to patient in the handbook.WILD WAGONER verbalizes understanding that [facility] is not responsible for the loss or damage to any personal effects or valuables that are kept in the patients posession during their hospitalization. The following Patient Care Plans were discussed with the PATIENT: Discharge Planning, IMPARIED MOBILITY,ALTERED COMFORT, and SELF CARE DEFICIT. WILD WAGONER verbalizes understanding of Interdisciplinary Patient Education. Patient and/or family were informed about the Rapid Response Team and its purpose. Patient received Patient Rights Booklet, which includes Privacy Act Statement and Data Collection Information Summary.
--- NOTE | 2020-03-30 12:55 | PM&R Post Admission Assessment ---
PM&R Date of Visit: Mar 30, 2020 Time of Visit: 13:00 History of Present Illness CC: Debility following left knee replacement by Dr Neville POD # 3 HPI: This is a 69yoWM clinic patient of Dr Francois who has a h/o AF, HTN, HLP, ISAAK on CPAP and obesity with BMI 47 who presents to the IRF following an uncom plicated left knee replacement by Dr Neville. Patient had failed conservative measures and could no longer ambulate which required the replacement. Patient having slow recovery from increased BMI. BM has just occurred this morning. Urination is good. CPAP is used every night. Reviewed therapy notes. PLOF was independent. 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) Alcohol Use: Occasionally Uses Smoking Status: Former Smoker Former Smoker, Quit: Sep 11, 1995 Type Used: Cigarettes 2nd Hand Smoke Exposure: Yes Recent Hopitalizations: No Immunizations Up To Date Tetanus Booster (TDap): Unknown Date of Pneumonia Vaccine: Apr 19, 2017 Date of Influenza Vaccine: Apr 17, 2019 Seasonal Allergies Seasonal Allergies: Yes Past Medical History Surgeries: Bowel Surgery, Orthopedic Respiratory: Sleep Apnea Currently Using CPAP: Yes Currently Using BIPAP: Yes Cardiac: Atrial Fibrillation, High Cholesterol, Hypertension Reproductive: No Sexually Transmitted Disease: No HIV/AIDS: No Genitourinary: Prostate Problems Gastrointestinal: Gastroesophageal Reflux, Chronic Diarrhea Musculoskeletal: Arthritis Endocrine: Diabetes, Insulin dep Loss of Vision: Denies Hearing Impairment: Hard of Hearing, Bilateral Hearing Aide History of Blood Disorders: No Adverse Reaction to Blood Velasquez: No (N/A) Family History Colon cancer No Pertinent Family Hx 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 PM&R Allergy/Meds/Data Review Allergies Coded Allergies: No Known Drug Allergies (Unverified , 03/27/20) Home Medications Scheduled Alogliptin Benzoate (Nesina), 25 MG PO DAILY, (Reported) Amlodipine Besylate (Amlodipine Besylate), 5 MG PO DAILY, (Reported) Apixaban (Eliquis), 5 MG PO BID, (Reported) Calcium Carbonate/Vitamin D3 (Calcium 500 + D Tablet), 3 TAB PO DAILY, (Reported) Finasteride (Finasteride), 5 MG PO DAILY, (Reported) Fluticasone Propionate (Flonase Allergy Relief), 2 SPRAYS NS DAILY, (Reported) Furosemide (Furosemide), 40 MG PO DAILY, (Reported) Hydrochlorothiazide (Hydrochlorothiazide), 25 MG PO DAILY, (Reported) Insulin Glargine,Hum.rec.anlog (Lantus), 50 UNIT SQ BID, (Reported) Lisinopril (Lisinopril), 20 MG PO DAILY, (Reported) Magnesium Oxide (Magnesium), 1,000 MG PO DAILY, (Reported) Metformin HCl (Metformin HCl), 1,000 MG PO BID, (Reported) Metoprolol Succinate (Metoprolol Succinate), 25 MG PO DAILY, (Reported) Multivitamin (Multivitamins), 1 TAB PO DAILY, (Reported) Omeprazole (Omeprazole), 40 MG PO DAILY, (Reported) Pioglitazone HCl (Pioglitazone HCl), 15 MG PO DAILY, (Reported) Potassium Chloride (Potassium Chloride), 30 MEQ PO DAILY, (Reported) Rosuvastatin Calcium (Crestor), 5 MG PO DAILY, (Reported) Tamsulosin HCl (Flomax), 0.4 MG PO BID, (Reported) Tiotropium [place] (Spiriva Respimat 2.5MCG/ACTUATION), 2 PUFF IH DAILY, (Reported) Scheduled PRN Albuterol Sulfate (Proventil Hfa), 2 PUFF IH Q6H PRN for SHORTNESS OF BREATH, (Reported) Current Medications Current Medications Reviewed Review of Systems Constitutional: see HPI, malaise, weakness EENTM: no symptoms reported Respiratory: dyspnea on exertion Cardiovascular: no symptoms reported Gastrointestinal: no symptoms reported Genitourinary: no symptoms reported Musculoskeletal: joint pain Skin: no symptoms reported Psychiatric/Neurological: No Symptoms Reported All Other Systems Reviewed Negative Unless Noted: Yes Physical Exam Physical Exam Vital Signs Capillary Refill : Height, Weight, BMI Height: 6'1.00" Weight: 343lbs. 0.0oz. 155.707145do; 84.54 BMI Method:Stated General Appearance: No Apparent Distress, WD/WN, Chronically ill, Obese Eyes: Bilateral Eye Normal Inspection, Bilateral Eye PERRL HEENT: PERRL/EOMI, TMs Normal, Normal ENT Inspection, Pharynx Normal Neck: Full Range of Motion, Normal Inspection, Non Tender, Supple, Carotid Bruit Respiratory: Chest Non Tender, Lungs Clear, Normal Breath Sounds, No Accessory Muscle Use, No Respiratory Distress, Decreased Breath Sounds Cardiovascular: Regular Rate, Rhythm, No Gallop, No JVD, No Murmur, Normal Peripheral Pulses Gastrointestinal: Normal Bowel Sounds, No Organomegaly, No Pulsatile Mass, Non Tender, Soft Back: Normal Inspection, No CVA Tenderness, No Vertebral Tenderness Extremity: Normal Capillary Refill, Normal Inspection, Normal Range of Motion (except left leg decreased ROM), Non Tender, No Calf Tenderness, Pedal Edema (trace) Neurologic/Psychiatric: Alert, Oriented x3, No Motor/Sensory Deficits, Normal Mood/Affect, sensor specialist II-XII Norm as Tested, Abnormal Gait Skin: Normal Color, Warm/Dry Lymphatic: No Adenopathy PM&R Medical Assessment & Plan REHAB/MEDICAL ASSESSMENT AND PLAN: REHAB IMPAIRMENT GROUP: Left knee replacement ETIOLOGIC DIAGNOSIS: Left knee replacement The comorbidities that impact the patients function and/or functional outcome by: increased BMI, ISAAK on CPAP, HTN, AF, OAC maintenance REHAB PLAN: The patient is being admitted to our comprehensive inpatient rehabilitation facility and can tolerate the intensity of service consisting of at least: 180 minutes of therapy a day, 5 out of 7 days a week Rehab treatment will consist of: PT OT will focus on regaining function in the midst of left knee pain post operatively along with management of increased work from increased BMI The patient/family has a good understanding of our discharge process and will benefit from an interdisciplinary inpatient rehabilitation program. The patient has potential to make improvement and is in need of at least two of the following multidisciplinary therapies including but not limited to physical, occupational, speech, and prosthetics and orthotics. Additionally the patient will need services from respiratory, nutritional services, wound care, psychology, etc. (Customize this to each patient). Given the patients complex condition and risk of further medical complications, rehabilitation services cannot be safely or effectively provided at a lower level of care such as a [facility] facility. BARRIERS TO DISCHARGE: Increased BMI ESTIMATED LOS: 7 days DISPOSITION: Home RELEVANT CHANGES SINCE PREADMISSION SCREENING: I have compared the patients medical and functional status at the time of the preadmission screening and there are: no changes PROGNOSIS: Good REHABILITATION GOALS: 1. PT OT will focus on regaining function in the midst of left knee pain post operatively along with management of increased work from increased BMI All the above goals were reviewed with the patient and he/she is in agreement. By signing this document, I acknowledge that I have personally performed a full physical examination on this patient within 24 hours of admission to this inpatient rehabilitation facility and have determined the patient to be able to tolerate the above course of treatment at an intensive level for a reasonable period of time. I will be completing a detailed individualized Plan of Care for this patient by day #4 of the patients stay based upon the Preadmission Screen, the Post-Admission Evaluation, and the therapy evaluations. Admission Dx/Comorbidities: (1) Status post left knee replacement ICD Codes: Z96.652 - Presence of left artificial knee joint (2) Postoperative anemia Status: Acute ICD Codes: D64.9 - Anemia, unspecified (3) Fever Status: Acute ICD Codes: R50.9 - Fever, unspecified (4) T2DM (type 2 diabetes mellitus) Status: Chronic ICD Codes: E11.9 - Type 2 diabetes mellitus without complications (5) BPH (benign prostatic hyperplasia) Status: Chronic ICD Codes: N40.0 - Benign prostatic hyperplasia without lower urinary tract symptoms (6) ISAAK (obstructive sleep apnea) Status: Chronic ICD Codes: G47.33 - Obstructive sleep apnea (adult) (pediatric) (7) HLD (hyperlipidemia) Status: Chronic ICD Codes: E78.5 - Hyperlipidemia, unspecified (8) HTN (hypertension) Status: Chronic ICD Codes: I10 - Essential (primary) hypertension (9) GERD (gastroesophageal reflux disease) Status: Chronic ICD Codes: K21.9 - Gastro-esophageal reflux disease without esophagitis (10) A-fib Status: Chronic ICD Codes: I48.91 - Unspecified atrial fibrillation (11) COPD (chronic obstructive pulmonary disease) Status: Chronic ICD Codes: J44.9 - Chronic obstructive pulmonary disease, unspecified Assessment/Plan Assessment and Plan Assess & Plan/Chief Complaint Assessment: s/p left knee replacement 03/27/20 Dr Neville ISAAK on CPAP Obesity HTN HLP DM AF OAC maintained Post op fever Post op anemia BPH Plan: IRF protocol Monitor BM Urinary retention risk MAREN GUTIERREZ DO Mar 30, 2020 12:55
[2020-03-30] MEDS ORDERED: diphenhydrAMINE 50 MG/ML INJ (BENADRYL) IVP PRN (13:00)
[2020-03-30] MEDS ORDERED: ONDANSETRON 4 MG/2 ML (SDV) Z0FRAN IVP PRN (13:00)
[2020-03-30] MEDS ORDERED: ACETAMINOPHEN 325 MG TABLET PO PRN ×2 (13:00→17:30)
--- NOTE | 2020-03-30 14:08 | NUR ---
ASSUMED CARE OF PATIENT. REPORT REC'D FROM AURELIA SIERRA.
--- NOTE | 2020-03-30 14:13 | Physical Therapy Evaluation ---
PT Evaluation-General Medical Diagnosis Admission Date Mar 30, 2020 at 12:05 Medical Diagnosis: R TKR Onset Date: Mar 30, 2020 Therapy Diagnosis Therapy Diagnosis: decreased mobility, R LE weakness Height/Weight Height (Feet): 6 Height (Inches): 1.00 Weight (Pounds): 343 Weight (Ounces): 0.0 Weight Bear Status Right Lower Extremity: Right Full Weight Bearing Left Lower Extremity: Left Full Weight Bearing Referral Physician: Dr. Sneed Reason for Referral: Evaluation/Treatment Medical History Pertinent Medical History: Atrial Fib, COPD, HTN, OA Current History Elective L TKR by Dr. Neville. Reviewed History: Yes Social History Home: Single Level Current Living Status: Alone Entry Into Home: Stairs With Railing PT Steps Into Home: 4 Prior Prior Level of Function SCALE: Activities may be completed with or without assistive devices. 0-Bpksoivpvk-hpdopey completes the activity by him/herself with no assistance from a helper. 5-Set-up or Clean-up Assistance-helper sets up or cleans up; patient completes activity. Sanderson assists only prior to or following the activity. 4-Supervision or Touching Assistance-helper provides verbal cues and/or touching/steadying and/or contact guard assistance as patient completes activit y. Assistance may be provided throughout the activity or intermittently. 3-Partial/Moderate Assistance-helper does LESS THAN HALF the effort. Sanderson lifts, holds or supports trunk or limbs, but provides less than half the effort. 2-Substantial/Maximal Assistance-helper does MORE THAN HALF the effort. Sanderson lifts or holds trunk or limbs and provides more than half the effort. 2-Islokigyg-xcdpnp does ALL the effort. Patient does none of the effort to complete the activity. Or, the assistance of 2 or more helpers is required for the patient to complete the activity. If activity was not attempted, code reason: 7-Patient Refused. 9-Not Applicable-not attempted and the patient did not perform the activity before the current illness, exacerbation or injury. 10-Not Attempted due to Environmental Limitations-(lack of equipment, weather restraints, etc.). 88-Not Attempted due to Medical Conditions or Safety Concerns. Bed Mobility: 6 Transfers (B,C,W/C): 6 Gait: 6 Stairs: 6 Indoor Mobility (Ambulation): Independent Stairs: Independent PT Evaluation-Current Subjective Pt. is agreeable to therapy. States he has been wanting to get up. Pt. c/o L knee pain but no objective pain rating. Pt/Family Goals home Objective Patient Orientation: Person, Place, Time, Situation Attachments: SCD's, Oxygen ROM/Strength ROM Upper Extremities See OT ROM Lower Extremities WFL except focal deficit L knee Strength Upper Extremities See OT Strength Lower Extremities Grossly 4/5 R LE, 2/5 L LE Integumentary/Posture Integumentary bandage covering L knee incision, compression stockings on Bowel Incontinence: No Bladder Incontinence: No Posture unremarkable Neuromuscular (Tone, Coordination, Reflexes) unremarkable Sensory Vision: Wears Glasses Hearing: Functional Sensation Right Upper Extremit: Intact Sensation Left Upper Extremity: Intact Sensation Right Lower Extremit: Intact Sensation Left Lower Extremity: Intact Transfers Roll Left to Right (QC): 1 Sit to Lying (QC): 1 Lying to Sitting/Side of Bed(Q: 1 Sit to Stand (QC): 1 Chair/Bhd-je-Jgcuh Xfer(QC): 1 Toilet Transfer (QC): 88 Car Transfer (QC): 88 Gait Does the Patient Walk?: Yes Mode of Locomotion: Walk Anticipated Mode of Locomotion: Walk Walk 10 feet (QC): 3 Walk 50 ft with 2 Turns(QC): 88 Walk 150 ft (QC): 88 Walking 10ft/uneven surface-QC: 88 Distance: 10 ft Gait Assistive Device: FWW Wheelchair Training Does the Pt Use a Wheelchair?: No Wheel 50 ft with 2 turns (QC): 9 Wheel 150 ft (QC): 9 Stairs 1 Step (curb) (QC): 88 4 Steps (QC): 88 12 Steps (QC): 88 Balance Sitting Static: Good Sitting Dynamic: Fair Standing Static: Fair Standing Dynamic: Fair Picking up an Object (QC): 88 Treatment Transfer 4th floor to 2nd floor via w/c. Assessment/Needs Pt. is a morbidly obese 69 y.o. male with decreased mobility following a L TKR. Pt. is currently assist x 2-3, mod A for short distance ambulation. Pt. becomes short of breath very easily and current mobility is very limited. He also has poor ability to lift the L LE. Pt. would benefit from skilled PT to improve strength and safe mobility for return home (I). Rehab Potential: Fair PT Senior Care Goals Set Up Worker Goals PT Set Up Worker Goals Time Frame: Apr 13, 2020 Roll Left & Right (QC): 4 Sit to Lying (QC): 4 Lying-Sitting on Side/Bed(QC): 4 Sit to Stand (QC): 6 Chair/Rhw-wq-Fslry Xfer(QC): 6 Toilet Transfer (QC): 6 Car Transfer (QC): 6 Does the Patient Walk: Yes Walk 10 feet (QC): 6 Walk 50ft with 2 Turns (QC): 6 Walk 150 ft (QC): 6 Walking 10ft on Uneven Surface: 6 1 Step (curb) (QC): 4 4 Steps (QC): 4 12 Steps (QC): 9 Picking up an Object (QC): 9 Wheel 50 feet with 2 turns (QC: 9 Wheel 150 feet: 9 PT Plan Problem List Problem List: Activity Tolerance, Functional Strength, Safety, Balance, Gait, Transfer, Bed Mobility, ROM Treatment/Plan Treatment Plan: Continue Plan of Care Treatment Plan: Bed Mobility, Concurrent Therapy, Education, Functional Activity [place], Functional Strength, Group Therapy, Gait, Safety, Therapeutic Exercise, Transfers Treatment Duration: Apr 13, 2020 Frequency: 6 times per week Estimated Hrs Per Day: 1.5 hours per day Patient and/or Family Agrees t: Yes Time/GCodes Time In: 1205 Time Out: 1250 Total Billed Treatment Time: 45 Total Billed Treatment 1, EVL 20', FA 25' SONJA BARNES PT Mar 30, 2020 14:13
[2020-03-30] MEDS ORDERED: FLU QUAD HIGH DOSE 240 MCG/0.7 ML 2020-21 (FLUZONE) IM ONE (14:15)
[2020-03-30 14:54] VITALS: BP 158/75
[2020-03-30 15:19] VITALS: BP 158/75
[2020-03-30] MEDS: DOCUSATE SODIUM 100 MG (COLACE) CAP PO SCH ×2 (15:21→19:56)
[2020-03-30] MEDS: polyethylene glycoL POWDER 17 GM (MIRALAX) PACK PO SCH ×2 (15:33→19:56)
[2020-03-30] MEDS: inSUlin ASPART (NovoLOG) 1 UNIT/0.01 ML (CHARGE PER UNIT) SC SCH ×2 (15:39→19:04)
[2020-03-30] MEDS: oxyCODONE/APAP 5/325MG (PERCOCET 5) TABLET PO PRN ×2 (16:01→21:34)
--- NOTE | 2020-03-30 17:31 | NUR ---
TEMP- 37.8, HR 112, BP 140/60. PATIENT HAS BEEN CHILLING OFF AND ON THIS AFTERNOON. DR. GUTIERREZ NOTIFIED WITH ORDERS TO MONITOR ONLY. TYLENOL- 650 MG PO Q4HRS PRN.
[2020-03-30 18:00] VITALS: BP 140/60
[2020-03-30] MEDS: SENNA W/DOCUSATE (SENOKOT S) TABLET PO SCH (19:56)
[2020-03-30] MEDS: MELATONIN 3 MG TABLET PO PRN (21:34)
[2020-03-30] MEDS: TAMSULOSIN 0.4 MG (FLOMAX) CAP PO SCH (21:34)
[2020-03-30] MEDS: APIXABAN 5 MG (ELIQUIS) TABLET PO SCH (21:34)
[2020-03-31] MEDS: oxyCODONE/APAP 5/325MG (PERCOCET 5) TABLET PO PRN ×5 (01:03→21:13)
[2020-03-31] MEDS: ALPRAZolam 0.25 MG (XANAX) TAB PO PRN ×2 (01:03→21:13)
[2020-03-31 05:48] VITALS: BP 145/68
[2020-03-31] MEDS: inSUlin ASPART (NovoLOG) 1 UNIT/0.01 ML (CHARGE PER UNIT) SC SCH ×3 (06:51→17:23)
[2020-03-31] MEDS: MULTIVIT W/MINERALS TAB (THERAGRAN M) PO SCH (06:51)
[2020-03-31] MEDS: UMECLIDINIUM BROMIDE (INCRUSE ELLIPTA) 7'S IH SCH (07:04)
[2020-03-31] MEDS: HYDROCHLOROTHIAZIDE 25 MG (HCTZ) TAB PO SCH (09:31)
[2020-03-31] MEDS: FUROSEMIDE 40 MG (LASIX) TAB PO SCH (09:31)
[2020-03-31] MEDS: DOCUSATE SODIUM 100 MG (COLACE) CAP PO SCH ×2 (09:32→21:19)
[2020-03-31] MEDS: ROSUVASTATIN 5 MG (CRESTOR) TABLET PO SCH (09:32)
[2020-03-31] MEDS: SENNA W/DOCUSATE (SENOKOT S) TABLET PO SCH ×2 (09:32→21:19)
[2020-03-31] MEDS: FINASTERIDE (PROSCAR) 5 MG TAB PO SCH (09:32)
[2020-03-31] MEDS: TAMSULOSIN 0.4 MG (FLOMAX) CAP PO SCH ×2 (09:33→21:13)
[2020-03-31] MEDS: lisINopril 40 MG (PRINIVIL) TABLET PO SCH (09:33)
[2020-03-31] MEDS: APIXABAN 5 MG (ELIQUIS) TABLET PO SCH ×2 (09:33→21:13)
[2020-03-31] MEDS: PANTOPRAZOLE 40 MG (PROTONIX) TAB PO SCH (09:33)
[2020-03-31] MEDS: amLODIPine 10 MG (NORVASC) TAB PO SCH (09:33)
[2020-03-31] MEDS: meTOproloL SUCCINATE 50 MG (TOPROL XL) TAB PO SCH (09:33)
[2020-03-31] MEDS: ASPIRIN E.C. 81 MG (ECOTRIN) TAB PO SCH (09:33)
[2020-03-31] MEDS: polyethylene glycoL POWDER 17 GM (MIRALAX) PACK PO SCH ×2 (09:40→19:50)
[2020-03-31] MEDS: FLUTICASONE NASAL SPRAY (FLONASE) 16 GM BTL NS SCH (09:41)
[2020-03-31 09:44] VITALS: BP 149/67
--- NOTE | 2020-03-31 11:18 | Progress Note ---
Standard Progress Note Progress Notes/Assess & Plan Date Seen by a Provider: Mar 31, 2020 Time Seen by a Provider: 11:18 Progress/Assessment & Plan feeling better today LLE in CPM no calf tenderness Neg Nick's s/p LTKA doing well continue PT/OT SHELLY CHÁVEZ MD Mar 31, 2020 11:18
--- NOTE | 2020-03-31 11:37 | Cardiology Progress Note ---
Subjective Date Seen by Provider: Mar 31, 2020 Time Seen by Provider: 11:36 Subjective/Events-last exam Patient was seen at bedside, still having pain in his knee. No chest pain Review of Systems General: No Chills, No Night Sweats, No Fatigue, No Malaise, No Appetite, No Other HEENT: No Head Aches, No Visual Changes, No Eye Pain, No Ear Pain, No Dysphasia, No Sinus Congestion, No Post Nasal Drip, No Sore Throat, No Other Pulmonary: No Dyspnea, No Cough, No Pleuritic Chest Pain, No Other Cardiovascular: No: Chest Pain, Palpitations, Orthopnea, Paroxysmal Noc. Dyspnea, Edema, Lt Headedness, Other Objective-Cardiology Exam Last Set of Vital Signs Vital Signs 03/31/20 09:44 Temp 37.2 Pulse 105 Resp 18 B/P (MAP) 149/67 (94) Pulse Ox 95 O2 Delivery Room Air Capillary Refill : Less Than 3 SecondsLess Than 3 Seconds I&O Intake and Output 03/31/20 00:00 Intake Total 1200 ml Output Total 825 ml Balance 375 ml Intake Oral 1200 ml Output Urine Total 825 ml Daily Weight Change No General: Alert, Oriented X3, Cooperative HEENT: Atraumatic, PERRLA Neck: Supple, No JVD, No Thyromegaly Lungs: Clear to Auscultation, Normal Air Movement Heart: Regular Rate, Normal S1, Normal S2, No Murmurs Abdomen: Normal Bowel Sounds, Soft, No Tenderness, No Hepatosplenomegaly, No Masses Extremities: No Clubbing, No Cyanosis, Normal Pulses, No Tenderness/Swelling, Other (peripheral edema) Skin: No Rashes, No Breakdown, No Significant Lesion Neuro: Normal Speech, Sensation Intact Psych/Mental Status: Mental Status NL, Mood NL A/P-Cardiology Admission Diagnosis Paroxysmal atrial fibrillation Hypertension Hyperlipidemia Peripheral edema Assessment/Plan Status post left total knee arthroplasty, degenerative joint disease, recovering slowly. Paroxysmal atrial fibrillation, restarted oral anticoagulation and Toprol and continue to monitor Hypertension, restart home medication, monitor blood pressure Hyperlipidemia, continue to monitor lipids Chronic venous stasis changes, chronic pedal edema, no change from baseline. Continue to monitor Diabetes mellitus, followed and managed by primary care physician continue to monitor COPD/obstructive sleep apnea uses C Pap as an outpatient, currently on oxygen Mild anemia, continue to monitor H&H Generalized weakness and debility, starting with physical therapy Clinical Quality Measures DVT/VTE Risk/Contraindication: Risk Factor Score Per Nursin RFS Level Per Nursing on Admit: 4+=Very High ALICIA ROWE MD Mar 31, 2020 11:37
--- NOTE | 2020-03-31 12:03 | PM&R Progress Note ---
Subjective HPI/CC On Admission Date Seen by Provider: Mar 31, 2020 Time Seen by Provider: 12:15 Subjective/Events-last exam No fever now COugh noted but dry and chronic CPM used for a bit and tolerated well Eliquis BID tolerated and that is chronic Large loose stool yesterday so will maintain Colace IS ordered and compliant Up to chair now and it was easier compared to yesterday 3 people required for transfer yesterday and today much easier Cardiology Dr Haas checked on him Dr Neville checked on him Checked meds and labs Conferred with RN Reviewed therapy notes Review of Systems General: Fatigue, Malaise Musculoskeletal: leg pain Neurological: Weakness Objective Exam Vital Signs Vital Signs Date Time Temp Pulse Resp B/P (MAP) Pulse Ox O2 Delivery O2 Flow Rate FiO2 03/31/20 09:59 Room Air 03/31/20 09:44 37.2 105 18 149/67 (94) 95 Capillary Refill : Less Than 3 SecondsLess Than 3 Seconds General Appearance: No Apparent Distress, WD/WN, Chronically ill, Obese HEENT: PERRL/EOMI, TMs Normal, Normal ENT Inspection, Pharynx Normal Neck: Full Range of Motion, Normal Inspection, Non Tender, Supple, Carotid Bruit Respiratory: Chest Non Tender, Lungs Clear, Normal Breath Sounds, No Accessory Muscle Use, No Respiratory Distress, Decreased Breath Sounds Cardiovascular: Regular Rate, Rhythm, No Gallop, No JVD, No Murmur, Normal Peripheral Pulses Gastrointestinal: Normal Bowel Sounds, No Organomegaly, No Pulsatile Mass, Non Tender, Soft Back: Normal Inspection, No CVA Tenderness, No Vertebral Tenderness Extremity: Normal Capillary Refill, Normal Inspection, Normal Range of Motion (except left leg decreased ROM), Non Tender, No Calf Tenderness, Pedal Edema (trace) Neurologic/Psychiatric: Alert, Oriented x3, No Motor/Sensory Deficits, Normal Mood/Affect, remediation bioanalytics consultant II-XII Norm as 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 FIM Transfers Therapy Code Descriptions/Definitions Functional [place] Measure: 0=Not Assessed/NA 4=Minimal Assistance 1=Total Assistance 5=Supervision or Setup 2=Maximal Assistance 6=Modified [place] 3=Moderate Assistance 7=Complete IndependenceSCALE: Activities may be completed with or without assistive devices. 0-Hyehoaujze-ilvbmuf completes the activity by him/herself with no assistance from a helper. 5-Set-up or Clean-up Assistance-helper sets up or cleans up; patient completes activity. [place] assists only prior to or following the activity. 4-Supervision or Touching Assistance-helper provides verbal cues and/or touching/steadying and/or contact guard assistance as patient completes activity. Assistance may be provided throughout the activity or intermittently. 3-Partial/Moderate Assistance-helper does LESS THAN HALF the effort. [place] lifts, holds or supports trunk or limbs, but provides less than half the effort. 2-Substantial/Maximal Assistance-helper does MORE THAN HALF the effort. [place] lifts or holds trunk or limbs and provides more than half the effort. 5-Acrtxgtit-hkwmze does ALL the effort. Patient does none of the effort to complete the activity. Or, the assistance of 2 or more helpers is required for the patient to complete the activity. If activity was not attempted, code reason: 7-Patient Refused. 9-Not Applicable-not attempted and the patient did not perform the activity before the current illness, exacerbation or injury. 10-Not Attempted due to Environmental Limitations-(lack of equipment, weather restraints, etc.). 88-Not Attempted due to Medical Conditions or Safety Concerns. Roll Left to Right (QC): 1 Sit to Lying (QC): 1 Sit to Stand (QC): 1 Chair/Mix-jn-Loxrj Xfer(QC): 1 Car Transfer (QC): 88 Gait Training Does the Patient Walk?: Yes Walk 10 feet (QC): 3 Walk 50 ft with 2 Turns(QC): 88 Walk 150 ft (QC): 88 Walking 10ft/uneven surface-QC: 88 Gait Assistive Device: FWW Wheelchair Training Does the Pt Use a Wheelchair?: No Wheel 50 ft with 2 turns (QC): 9 Wheel 150 ft (QC): 9 Stair Training 1 Step (curb) (QC): 88 4 Steps (QC): 88 12 Steps (QC): 88 Balance Picking up an Object (QC): 88 Assessment/Plan Assessment and Plan Assess & Plan/Chief Complaint Assessment: s/p left knee replacement 03/27/20 Dr Neville ISAAK on CPAP Obesity HTN HLP DM AF OAC maintained Post op fever Post op anemia BPH Plan: IRF protocol Monitor BM Urinary retention risk 03/31/20: Pain control Eliquis maintained chronic for AF CVA PPx and now for also DVT PPx Colace CPAP IS Check labs in am (1) Status post left knee replacement (2) Postoperative anemia Status: Acute (3) Fever Status: Acute (4) T2DM (type 2 diabetes mellitus) Status: Chronic (5) BPH (benign prostatic hyperplasia) Status: Chronic (6) ISAAK (obstructive sleep apnea) Status: Chronic (7) HLD (hyperlipidemia) Status: Chronic (8) HTN (hypertension) Status: Chronic (9) GERD (gastroesophageal reflux disease) Status: Chronic (10) A-fib Status: Chronic (11) COPD (chronic obstructive pulmonary disease) Status: Chronic MAREN GUTIERREZ DO Mar 31, 2020 12:03
--- NOTE | 2020-03-31 13:10 | NUR ---
DR. GUTIERREZ TO THE FLOOR. INFORMED OF PRODUCTIVE COUGH WITH SCANT AMOUNT OF GREEN SPUTUM. AFEBRILE TODAY. I/S ENCOURAGED.
--- NOTE | 2020-03-31 16:43 | NUR ---
MAINTENANCE HAS BEEN IN AND OKAYED ELECTRIC BLANKET FOR USE THAT FAWN (FRIEND) BROUGHT IN FOR PATIENT.
--- NOTE | 2020-03-31 16:57 | NUR ---
STATES FOOT SCDS HELP WITH NEUROPATHY PAIN.
[2020-03-31 17:48] VITALS: BP 162/70
[2020-03-31] MEDS: MELATONIN 3 MG TABLET PO PRN (21:13)
--- NOTE | 2020-04-01 05:25 | PM&R Progress Note ---
Subjective HPI/CC On Admission Date Seen by Provider: Apr 01, 2020 Time Seen by Provider: 10:00 Subjective/Events-last exam 04/01/20: Potassium 3.5 ordered potassium Doing well but having a hard time this morning Pain is okay but having difficulty performing in PT Pt appears to be frustrated Checked meds and labs Reviewed therapy notes Conferred with RN No fever now COugh noted but dry and chronic CPM used for a bit and tolerated well Eliquis BID tolerated and that is chronic Large loose stool yesterday so will maintain Colace IS ordered and compliant Up to chair now and it was easier compared to yesterday 3 people required for transfer yesterday and today much easier Cardiology Dr Haas checked on him Dr Neville checked on him Checked meds and labs Conferred with RN Reviewed therapy notes Review of Systems General: Fatigue, Malaise Neurological: Weakness Objective Exam Vital Signs Vital Signs Date Time Temp Pulse Resp B/P (MAP) Pulse Ox O2 Delivery O2 Flow Rate FiO2 04/01/20 21:12 Room Air 04/01/20 16:00 37.0 70 14 146/66 (92) 93 Capillary Refill : Less Than 3 SecondsLess Than 3 Seconds General Appearance: No Apparent Distress, WD/WN, Chronically ill, Obese HEENT: PERRL/EOMI, TMs Normal, Normal ENT Inspection, Pharynx Normal Neck: Full Range of Motion, Normal Inspection, Non Tender, Supple, Carotid Bruit Respiratory: Chest Non Tender, Lungs Clear, Normal Breath Sounds, No Accessory Muscle Use, No Respiratory Distress, Decreased Breath Sounds Cardiovascular: Regular Rate, Rhythm, No Gallop, No JVD, No Murmur, Normal Peripheral Pulses Gastrointestinal: Normal Bowel Sounds, No Organomegaly, No Pulsatile Mass, Non Tender, Soft Back: Normal Inspection, No CVA Tenderness, No Vertebral Tenderness Extremity: Normal Capillary Refill, Normal Inspection, Normal Range of Motion (except left leg decreased ROM), Non Tender, No Calf Tenderness, Pedal Edema (trace) Neurologic/Psychiatric: Alert, Oriented x3, No Motor/Sensory Deficits, Normal Mood/Affect, basket grader II-XII Norm as Tested, Abnormal Gait Skin: Normal Color, Warm/Dry Lymphatic: No Adenopathy Results/Procedures Lab Laboratory Tests 04/01/20 05:21 Patient resulted labs reviewed. FIM Transfers Therapy Code Descriptions/Definitions Functional [place] Measure: 0=Not Assessed/NA 4=Minimal Assistance 1=Total Assistance 5=Supervision or Setup 2=Maximal Assistance 6=Modified [place] 3=Moderate Assistance 7=Complete IndependenceSCALE: Activities may be completed with or without assistive devices. 8-Kehuqhhdas-nnxockw completes the activity by him/herself with no assistance from a helper. 5-Set-up or Clean-up Assistance-helper sets up or cleans up; patient completes activity. [place] assists only prior to or following the activity. 4-Supervision or Touching Assistance-helper provides verbal cues and/or touching/steadying and/or contact guard assistance as patient completes ac tivity. Assistance may be provided throughout the activity or intermittently. 3-Partial/Moderate Assistance-helper does LESS THAN HALF the effort. [place] lifts, holds or supports trunk or limbs, but provides less than half the effort. 2-Substantial/Maximal Assistance-helper does MORE THAN HALF the effort. [place] lifts or holds trunk or limbs and provides more than half the effort. 6-Wjprfwjrb-rpxklu does ALL the effort. Patient does none of the effort to complete the activity. Or, the assistance of 2 or more helpers is required for the patient to complete the activity. If activity was not attempted, code reason: 7-Patient Refused. 9-Not Applicable-not attempted and the patient did not perform the activity before the current illness, exacerbation or injury. 10-Not Attempted due to Environmental Limitations-(lack of equipment, weather restraints, etc.). 88-Not Attempted due to Medical Conditions or Safety Concerns. Roll Left to Right (QC): 1 Sit to Lying (QC): 1 Sit to Stand (QC): 1 Chair/Svd-yv-Iikrb Xfer(QC): 1 Car Transfer (QC): 88 Gait Training Does the Patient Walk?: Yes Walk 10 feet (QC): 3 Walk 50 ft with 2 Turns(QC): 88 Walk 150 ft (QC): 88 Walking 10ft/uneven surface-QC: 88 Gait Assistive Device: FWW Wheelchair Training Does the Pt Use a Wheelchair?: No Wheel 50 ft with 2 turns (QC): 9 Wheel 150 ft (QC): 9 Stair Training 1 Step (curb) (QC): 88 4 Steps (QC): 88 12 Steps (QC): 88 Balance Picking up an Object (QC): 88 Assessment/Plan Assessment and Plan Assess & Plan/Chief Complaint Assessment: s/p left knee replacement 03/27/20 Dr Neville ISAAK on CPAP Obesity HTN HLP DM AF OAC maintained Post op fever Post op anemia BPH Plan: IRF protocol Monitor BM Urinary retention risk 03/31/20: Pain control Eliquis maintained chronic for AF CVA PPx and now for also DVT PPx Colace CPAP IS Check labs in am 04/01/20: Replace potassium Maintain bowel regimen Pain control (1) Status post left knee replacement (2) Postoperative anemia Status: Acute (3) Fever Status: Acute (4) T2DM (type 2 diabetes mellitus) Status: Chronic (5) BPH (benign prostatic hyperplasia) Status: Chronic (6) ISAAK (obstructive sleep apnea) Status: Chronic (7) HLD (hyperlipidemia) Status: Chronic (8) HTN (hypertension) Status: Chronic (9) GERD (gastroesophageal reflux disease) Status: Chronic (10) A-fib Status: Chronic (11) COPD (chronic obstructive pulmonary disease) Status: Chronic MAREN GUTIERREZ DO Apr 01, 2020 05:25
[2020-04-01 05:59] LABS: BASOPHILS % (AUTO) 0 % (0-10); EOSINOPHILS # (AUTO) 0.2 10^3/uL (0.0-0.3); EOSINOPHILS % (AUTO) 3 % (0-10); HEMATOCRIT 29 % (40-54); HEMOGLOBIN 9.5 G/DL (13.3-17.7); LYMPHOCYTES # (AUTO) 1.2 X 10^3 (1.0-4.0); LYMPHOCYTES % (AUTO) 16 % (12-44); MEAN CORPUSCULAR HEMOGLOBIN 26 PG (25-34); MEAN CORPUSCULAR HGB CONC 32 G/DL (32-36); MEAN CORPUSCULAR VOLUME 80 FL (80-99); MEAN PLATELET VOLUME 11.7 FL (7.4-10.4); MONOCYTES # (AUTO) 0.8 X 10^3 (0.0-1.0); MONOCYTES % (AUTO) 10 % (0-12); NEUTROPHILS # (AUTO) 5.5 X 10^3 (1.8-7.8); NEUTROPHILS % (AUTO) 71 % (42-75); PLATELET COUNT 276 10^3/uL (130-400); WHITE BLOOD COUNT 7.8 10^3/uL (4.3-11.0)
[2020-04-01 06:13] LABS: ALBUMIN 3.2 GM/DL (3.2-4.5)
[2020-04-01 06:14] LABS: CHLORIDE 99 MMOL/L (98-107); POTASSIUM 3.5 MMOL/L (3.6-5.0); SODIUM 135 MMOL/L (135-145)
[2020-04-01 06:15] LABS: CALCIUM 8.1 MG/DL (8.5-10.1)
[2020-04-01 06:16] LABS: GLUCOSE 150 MG/DL (70-105); TOTAL PROTEIN 6.7 GM/DL (6.4-8.2)
[2020-04-01 06:17] LABS: CARBON DIOXIDE 23 MMOL/L (21-32)
[2020-04-01 06:18] LABS: BILIRUBIN,TOTAL 1.4 MG/DL (0.1-1.0)
[2020-04-01 06:19] LABS: ALKALINE PHOSPHATASE 63 U/L (40-136)
[2020-04-01 06:20] LABS: CREATININE SERUM 0.98 MG/DL (0.60-1.30); GFR ESTIMATED > 60
[2020-04-01 06:21] LABS: BUN/CREATININE RATIO 21
[2020-04-01 06:22] LABS: ALANINE AMINOTRANSFERASE 37 U/L (0-55)
[2020-04-01 06:40] VITALS: BP_SYST 148; BP_SYST 150; BP_DIAS 67; BP_DIAS 71
[2020-04-01] MEDS: MULTIVIT W/MINERALS TAB (THERAGRAN M) PO SCH (06:52)
[2020-04-01] MEDS: inSUlin ASPART (NovoLOG) 1 UNIT/0.01 ML (CHARGE PER UNIT) SC SCH ×3 (06:52→17:49)
[2020-04-01] MEDS: UMECLIDINIUM BROMIDE (INCRUSE ELLIPTA) 7'S IH SCH (07:15)
[2020-04-01] MEDS ORDERED: KCL 10 MEQ TAB (MICRO K) PO NR (08:30)
[2020-04-01] MEDS: FINASTERIDE (PROSCAR) 5 MG TAB PO SCH (08:45)
[2020-04-01] MEDS: HYDROCHLOROTHIAZIDE 25 MG (HCTZ) TAB PO SCH (08:46)
[2020-04-01] MEDS: APIXABAN 5 MG (ELIQUIS) TABLET PO SCH ×2 (08:46→20:16)
[2020-04-01] MEDS: meTOproloL SUCCINATE 50 MG (TOPROL XL) TAB PO SCH (08:46)
[2020-04-01] MEDS: polyethylene glycoL POWDER 17 GM (MIRALAX) PACK PO SCH ×2 (08:48→20:16)
[2020-04-01] MEDS: ROSUVASTATIN 5 MG (CRESTOR) TABLET PO SCH (08:48)
[2020-04-01] MEDS: lisINopril 40 MG (PRINIVIL) TABLET PO SCH (08:48)
[2020-04-01] MEDS: SENNA W/DOCUSATE (SENOKOT S) TABLET PO SCH ×2 (08:50→20:17)
[2020-04-01] MEDS: DOCUSATE SODIUM 100 MG (COLACE) CAP PO SCH ×2 (08:51→20:17)
[2020-04-01] MEDS: oxyCODONE/APAP 5/325MG (PERCOCET 5) TABLET PO PRN ×4 (08:54→21:09)
[2020-04-01] MEDS: TAMSULOSIN 0.4 MG (FLOMAX) CAP PO SCH ×2 (08:54→20:15)
[2020-04-01] MEDS: ASPIRIN E.C. 81 MG (ECOTRIN) TAB PO SCH (08:55)
[2020-04-01] MEDS: amLODIPine 10 MG (NORVASC) TAB PO SCH (08:55)
[2020-04-01] MEDS: FUROSEMIDE 40 MG (LASIX) TAB PO SCH (08:55)
[2020-04-01] MEDS: PANTOPRAZOLE 40 MG (PROTONIX) TAB PO SCH (08:57)
--- NOTE | 2020-04-01 08:57 | Physical Therapy Daily Note ---
PT Daily Note-Current Subjective Pt presents reclined in chair. Pt agrees to PT. Pt reports 2/10 pain in L knee. Appearance After conclusion of PT tx, pt is left reclined in chair. Nurses present in room to administer medications and finished meeting needs of patient. Mental Status Patient Orientation: Person, Place, Eyes Open, Situation Transfers SCALE: Activities may be completed with or without assistive devices. 2-Tcevhrejdv-hpmzjus completes the activity by him/herself with no assistance from a helper. 5-Set-up or Clean-up Assistance-helper sets up or cleans up; patient completes activity. [place] assists only prior to or following the activity. 4-Supervision or Touching Assistance-helper provides verbal cues and/or touching/steadying and/or contact guard assistance as patient completes activity. Assistance may be provided throughout the activity or intermittently. 3-Partial/Moderate Assistance-helper does LESS THAN HALF the effort. [place] lifts, holds or supports trunk or limbs, but provides less than half the effort. 2-Substantial/Maximal Assistance-helper does MORE THAN HALF the effort. [place] lifts or holds trunk or limbs and provides more than half the effort. 3-Sgzvumtgn-vbilcl does ALL the effort. Patient does none of the effort to complete the activity. Or, the assistance of 2 or more helpers is required for the patient to complete the activity. If activity was not attempted, code reason: 7-Patient Refused. 9-Not Applicable-not attempted and the patient did not perform the activity bef ore the current illness, exacerbation or injury. 10-Not Attempted due to Environmental Limitations-(lack of equipment, weather r estraints, etc.). 88-Not Attempted due to Medical Conditions or Safety Concerns. Roll Left & Right (QC): 4 Sit to Lying (QC): 4 Lying to Sitting/Side of Bed(Q: 3 Sit to Stand (QC): 2 Toilet Transfer (QC): 3 Pt struggled with bed mobility but was verbally cued to complete without physical assistance. Pt improved ejt-cg-wjphm off of toilet as compared to regular chair because of use of UE handlebars to pull himself up. Weight Bearing Right Lower Extremity: Right Full Weight Bearing Left Lower Extremity: Left Full Weight Bearing Gait Training Does the Patient Walk?: Yes Distance: 30', 120' Walk 10 feet (QC): 4 Walk 50 ft with 2 Turns(QC): 4 Gait Assistive Device: FWW Wheelchair Training Does the Pt Use a Wheelchair?: Yes Wheel 50 ft with 2 turns (QC): 2 Wheel 150 ft (QC): 2 Type of Wheelchair: Manual Patient able to hold own LEs up from dragging Exercises Seated Therapy Exercises: Ankle pumps, Long arc quads (LLE), Hip abd/add Seated Reps: 10 Treatments Gait training; LE strengthening Assessment Current Status: Fair Progress Pt unable to lay supine for LE exercises. Pt reported need for BM during treatment, pt used WC to return to room quickly. Pt able to hold standing balance with equal weight distribution between LEs to wipe and wash hands. PT Boiler Tube Reamer Goals Boiler Tube Reamer Goals PT Senior Living Goals Time Frame: Apr 13, 2020 Roll Left & Right (QC): 4 Sit to Lying (QC): 4 Lying-Sitting on Side/Bed(QC): 4 Sit to Stand (QC): 6 Chair/Tgr-qb-Wwnrs Xfer(QC): 6 Toilet Transfer (QC): 6 Car Transfer (QC): 6 Does the Patient Walk: Yes Walk 10 feet (QC): 6 Walk 50ft with 2 Turns (QC): 6 Walk 150 ft (QC): 6 Walking 10ft on Uneven Surface: 6 1 Step (curb) (QC): 4 4 Steps (QC): 4 12 Steps (QC): 9 Picking up an Object (QC): 9 Wheel 50 feet with 2 turns (QC: 9 Wheel 150 feet: 9 PT Plan Problem List Problem List: Activity Tolerance, Functional Strength, Safety, Balance, Gait, Transfer, Bed Mobility, ROM Treatment/Plan Treatment Plan: Continue Plan of Care Treatment Plan: Bed Mobility, Concurrent Therapy, Education, Functional Activity [place], Functional Strength, Group Therapy, Gait, Safety, Therapeutic Exercise, Transfers Treatment Duration: Apr 13, 2020 Frequency: 6 times per week Estimated Hrs Per Day: 1.5 hours per day Patient and/or Family Agrees t: Yes Safety Risks/Education Patient Education: Gait Training, Transfer Techniques, Correct Positioning, W/C Management, Safety Issues Teaching Recipient: Patient Teaching Methods: Demonstration, Discussion Response to Teaching: Reinforcement Needed Time/GCodes Time In: 0800 Time Out: 0900 Total Billed Treatment Time: 60 Total Billed Treatment 1 visit GT 20' FA 25' EX 15' RICKEY SOUSA PT Apr 01, 2020 08:57
[2020-04-01] MEDS: FLUTICASONE NASAL SPRAY (FLONASE) 16 GM BTL NS SCH (09:04)
[2020-04-01 09:06] VITALS: BP 139/69
--- NOTE | 2020-04-01 09:34 | NUR ---
SPOKE WITH THE PT, WENT THRU THE EXT MED HISTORY AND CALLED [facility] AND RICARDO TO COMPLETE THE MED REC BUPROPION SR 150MG- PT SAYS HE TAKES 2 TABS AM AND 1 TAB PM HOWEVER HE HAS NOT FILLED THIS SINCE 10-04-2019 #270/90DS. WHEN I QUESTIONED THE PT ABLE HOW HE TAKES IT VS HOW IT IS PRESCRIBED HE STATES HE TAKES IT PRESCRIBED BUT DOES ADMIT TO MISSING A DOSE "HERE AND THERE". PT THEN SAYS HE THINKS HE FILLED IT AT [facility] RECENTLY BUT WHEN I CALLED THEY HAD NOT FILLED ANY PRESCRIPTION SINCE 2017. I THEN ASKED THE PT ABOUT THE PAST DUE REFILL AND HE REPLIED " I CANT TELL YOU ANYTHING ABOUT THAT". I DID PUT IT ON THE EXT MED HISTORY AND ADDED THE PAST DUE FILL DATE OTC MEDS: TYLENOL IBUPROFEN MIRALAX Addendum: 04/01/20 at 0939 by CK SHIRLEY CPhT DISREGARD-WRONG PT
--- NOTE | 2020-04-01 13:02 | NUR ---
"RD ASSESSMENT PMHx: DM; HTN; afib; COPD; s/p L TKA PT INTERACTION: Pt was awake and pleasant during nutrition follow-up. Pt states he has not been eating well since last assessment. Note avg PO intake 75% x2d, per chart review. Pt states no issues with nausea, vomiting, constipation, or diarrhea since last assessment, and that his last BM was 04/01. Note pt currently on bowel regimen of colace BID; senna BID; and miralax BID, per chart review. ABNORMAL NUTRITION-RELATED LAB VALUES LOW: K 3.5; Ca 8.1 HIGH: BUN 21; glu 150; bili 1.4; AST 35 Est. kcal needs: 1950 kcal | 25 kcal/kg IBW, based on IBW of 78.1 kg (172#) Est. Pro needs: 78 g Pro | 1.0 g Pro/kg IBW PES STATEMENT: Given current PO intake, no nutrition diagnosis at this time (NO-1.1) INTERVENTION: Continue with current diet order of Regular diet. Pt may benefit from consistent CHO restriction if blood glucose levels become elevated. Discontinue current supplementation order of Ensure Clear with meals TID. Avg PO intake 75% x2d, per chart review. Will continue to follow and reassess as pt needs, intake, and status change. Will Almendarez, MS, RD, LD"
--- NOTE | 2020-04-01 13:09 | ST Cognitive Linguistic Eval ---
Speech Evaluation-General Medical Diagnosis R TKR Onset Date: Mar 30, 2020 Therapy Diagnosis Therapy Diagnosis: Cognitive-communication Referral Referring Physician: Dr. Sneed Medical History Pertinent Medical History: Atrial Fib, COPD, HTN, OA Reviewed History: Yes Social History Current Living Status: Alone Speech PLF-Current Status Prior Level of Function Patient lives home alone where he is independent for most of his daily needs. Subjective Patient was pleasant and cooperative with the cognitive assessment. Language Eval: Auditory Comprehends Simple Yes/No Ques: Functional Indent/Objects Multiple [place]: Functional Ident/Pics in Multiple [place]: Functional Follows 1-Step Commands: Functional Follows Complex Directions: Functional Follows General Conversations: Functional Language Eval: Verbal Language Completes Spontaneous Greeting: Functional Produces Auto, Serial Info: Functional Imitates Simple Words/Phrases: Functional Word Finding: Functional Requests Basic Needs: Functional States Basic Personal Info: Functional Expresses Complex Ideas: Functional Objective Cognitive Domain Attention: WNL Memory: WNL Problem Solving: Functional Executive Functions: WNL Visuospatial Skills: WNL Composite Severity Rating: WNL Clock Drawing Severity Rating: WNL Objective Formal/Standardized Tests [facility] Mental Status ([facility]) Results 28/30, Within normal range of function Oral Motor/Speech Production Within Normal Limits Impression Patient is a pleasant 69 y/o male who was admitted to the ARU s/p knee replacement surgery. Patient was given the [facility] with a score of 28/30 obtained. This score is within the normal range of function which does not indicate the need for further ST services at this time. Speech Patient Assess Expression of Ideas/Wants: Expression (4) Understanding Verbal Content: Understands (4) Brief Interview-Mental Status: Yes Repetition of Three Words: Three (3) Temporal Orientation: Year: Correct (3) Temporal Orientation: Month: Accurate within 5 days(2) Temporal Orientation: Day: Correct (1) Recall : Wear to say "Sock": Yes,after cueing (1) Recall : Color: Yes, no cue required (2) Recall : Bed: Yes, no cue required (2) Memory/Recall Ability: Current season, Location of own room, That he or she is in a hsp/hsp unit Speech-Plan Patient/Family Goals Patient/Family Goals: Patient plans on returning to his home where he will receive home health. Treatment Plan Speech Therapy Treatment Plan: Discontinue ST Treatment Duration: Apr 01, 2020 Frequency: 1 time per week Estimated Hrs Per Day: .25 hour per day Rehab Potential: Fair Barriers to Learning: Patient's general health, age Pt/Family Agrees to Plan: Yes Safety Risks/Education Teaching Recipient: Patient Teaching Methods: Discussion Response to Teaching: Verbalize Understanding Education Topics Provided: Safety within his room and upon his return home Time Speech Therapy Time In: 11:00 Speech Therapy Time Out: 11:15 Total Billed Time: 15 Billed Treatment Time 1, ELIGIO Vincent Apr 01, 2020 13:09
--- NOTE | 2020-04-01 13:19 | NUR ---
I SPOKE WITH THE PT AND COMPLETED THE MED REC ON 04-01-2020 WHEN THE PT WAS ON 4TH FLOOR- THE MEDICATIONS HAVE BEEN REVIEWED FOR DISCHARGE PURPOSES
--- NOTE | 2020-04-01 14:01 | NUR ---
CM/SS ADMISSION Patient was admitted to ARU from [facility] 03/30/20 post op for left TKA. Additional comorbidities are, in part, anemia, T2DM, BPH, ISAAK on CPAP, HLD, HTN, A-fib, COPD. Patient resides alone but has a female triple valve mechanic to assist him as needed. He was independent prior to this elective surgery but did have limits due to the pain of his knee prior to replacement. Patient plans to return home as before. PCP: Dr. Shivam Francois MD PHARMACY: [facility] INSURANCE: Medicare, [employer] DME: Has new FWW from [facility] and new CPM, has CPAP. His daughter is pursing a BSC and he understands this is private pay. HHC: He had selected [facility] for his services just prior to transfer to ARU. BARRIERS TO DISCHARGE: No outstanding barriers noted at this time. CONTACTS: Edilia Posey, Daughter [place], [place] [phone] Keke Mohan, Friend [address] [place] [address] Patient understood the purpose and process of the weekly patient care conference and that his first review will be 04/03/20.
--- NOTE | 2020-04-01 14:38 | Occupational Therapy Eval ---
OT Evaluation-General/PLF Medical Diagnosis Admission Date Mar 30, 2020 at 12:05 Medical Diagnosis: L TKR Onset Date: Mar 30, 2020 Therapy Diagnosis Therapy Diagnosis: Weakness, Decreased ADL skills Height/Weight Height (Feet): 6 Height (Inches): 1.00 Weight (Pounds): 343 Weight (Ounces): 0.0 Precautions Precautions/Isolations: Fall Prevention, Standard Precautions Weight Bear Status Weight Bearing Restriction: Weight Bearing/Tolerated Referral Physician: Dr. Sneed Referral Reason: Activity Tolerance, Self Care, Evaluation/Treatment, Strengthe zunilda/ROM Medical History Pertinent Medical History: Atrial Fib, COPD, DM, GERD, HTN, OA Additional Medical History Anemia, neuropathy Current History Pt. had elective knee replacement. Reviewed History: Yes Social History Home: Single Level Current Living Status: Alone Entry Into Home: Stairs With Railing Steps Into Home: 2 ADL-Prior Level of Function SCALE: Activities may be completed with or without assistive devices. 9-Nnpyuhysyd-hwrhvtz completes the activity by him/herself with no assistance from a helper. 5-Set-up or Clean-up Assistance-helper sets up or cleans up; patient completes activity. [place] assists only prior to or following the activity. 4-Supervision or Touching Assistance-helper provides verbal cues and/or touching/steadying and/or contact guard assistance as patient completes activity. Assistance may be provided throughout the activity or intermittently. 3-Partial/Moderate Assistance-helper does LESS THAN HALF the effort. [place] lifts, holds or supports trunk or limbs, but provides less than half the effort. 2-Substantial/Maximal Assistance-helper does MORE THAN HALF the effort. [place] lifts or holds trunk or limbs and provides more than half the effort. 9-Ldidzhbro-ivfroa does ALL the effort. Patient does none of the effort to complete the activity. Or, the assistance of 2 or more helpers is required for the patient to complete the activity. If activity was not attempted, code reason: 7-Patient Refused. 9-Not Applicable-not attempted and the patient did not perform the activity before the current illness, exacerbation or injury. 10-Not Attempted due to Environmental Limitations-(lack of equipment, weather restraints, etc.). 88-Not Attempted due to Medical Conditions or Safety Concerns. ADL PLOF Comments Pt. has a walker that he was using. Pt. still working in his [employer] practice, and was independent with daily tasks prior to hospitalization. Pt. drives and is able to clean/shop/complete laundry. Self Care: Independent Functional Cognition: Independent DME/Equipment: Shower DME/Equipment Comments Pt. 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 reports 6/10 pain in left knee. Pt. has had pain medication. Appearance Pt. up in chair when OT entered room. Agrees to work with OT. Mental Status/Objective Patient Orientation: Person, Place, Time, Situation Current Upper Extremity ROM WFL ADL-Treatment Eating (QC): 6 Oral Hygiene (QC): 4 (SBA standing at sink) Shower/Bathe Self (QC): 7 (Pt. declines shower at this time. States that he will do tomorrow.) Upper Body Dressing (QC): 5 (Per pt. report) Lower Body Dressing (QC): 3 (Mod assist per pt report. Pt. had clean clothes put on with PT assist prior to OT coming into room.) On/Off Footwear (QC): 4 (SBA with use of dressing stick and sock aide. Pt. uses sock aide at home.) Toileting Hygiene (QC): 7 Other Treatments After ADLs in room, pt. ambulated to therapy gym with walker and CGA. Completed 10 minutes on arm bike at mod resistance. Working toward increased overall strength and endurance. PT stood from chair with min assist, and Pt. ambulated back to room after this with CGA. All needs met in room up in chair. Education OT Patient Education: Correct positioning, Exercise program, Modified ADL techniques, Progress toward Goal/Update tx plan, Purpose of tx/functional activities, Reviewed precautions, Rehab process, Transfer techniques, Use of adapted equipment Teaching Recipient: Patient Teaching Methods: Demonstration, Discussion Response to Teaching: Verbalize Understanding, Return Demonstration OT Short Term Goals Short Term Goals Time Frame: Apr 08, 2020 Eatin Oral hygiene: 6 Toileting hygiene: 4 Shower/bathe self: 3 Upper body dressin Lower body dressin Putting on/taking off footwear: 4 OT Prison Goals Jewel Stringer Goals Time Frame: Apr 15, 2020 Eating (QC): 6 Oral Hygiene (QC): 6 Toileting Hygiene (QC): 6 Shower/Bathe Self (QC): 4 Upper Body Dressing (QC): 6 Lower Body Dressing (QC): 6 On/Off Footwear (QC): 6 Additional Goals: 1-Demonstrate ADL Tasks, 2-Verbalize Understanding, 3- ImproveStrength/[place] 1=Demonstrate adherence to instructed precautions during ADL tasks. 2=Patient will verbalize/demonstrate understanding of assistive devices/modifications for ADL. 3=Patient will improve strength/tolerance for activity to enable patient to perform ADL's. OT Education/Plan Problem List/Assessment Assessment: Decreased Activ Tolerance, Decreased UE Strength, Dependent Transf ers, Impaired Funct Balance, Impaired I ADL's, Impaired Self-Care Skills Discharge Recommendations Plan/Recommendations: Continue POC Therapy Discharge Recommendati: Home & Family, Post Acute OT Equpiment Recommendations-D/C: Hip Kit Treatment Plan/Plan of Care Treatment,Training & Education: Yes Patient would benefit from OT for education, treatment and training to promote independence in ADL's, mobility, safety and/or upper extremity function for ADL's. Plan of Care: ADL Retraining, Functional Mobility, UE Funct Exercise/Act Treatment Duration: Apr 15, 2020 Frequency: At least 5 of 7 days/Wk (IRF) Estimated Hrs Per Day: 1.5 hours per day Agreement: Yes Rehab Potential: Good Time/GCodes Start Time: 09:15 Stop Time: 10:45 Total Time Billed (hr/min): 90 Billed Treatment Time 1, EVM x 15minutes, ADL x 45minutes, Ex x 15minutes, FA x 15minutes NELSON MERRITT OT Apr 01, 2020 14:38
--- NOTE | 2020-04-01 15:55 | Physical Therapy Daily Note ---
PT Daily Note-Current Subjective Pt presents in recliner. Pt agrees to PT. Pt reports 8/10 pain in L knee. Appearance After PT tx patient is laying supine in bed with CPM active on L knee, CPM fit to leg and set to 60/-2. Pt has access to tray, call button, and all needs have been met. Mental Status Patient Orientation: Person, Place, Time, Eyes Open, Situation, Normal For Age Transfers SCALE: Activities may be completed with or without assistive devices. 2-Stshrufmff-eudclbd completes the activity by him/herself with no assistance from a helper. 5-Set-up or Clean-up Assistance-helper sets up or cleans up; patient completes activity. [place] assists only prior to or following the activity. 4-Supervision or Touching Assistance-helper provides verbal cues and/or touching/steadying and/or contact guard assistance as patient completes activity. Assistance may be provided throughout the activity or intermittently. 3-Partial/Moderate Assistance-helper does LESS THAN HALF the effort. [place] lifts, holds or supports trunk or limbs, but provides less than half the effort. 2-Substantial/Maximal Assistance-helper does MORE THAN HALF the effort. [place] lifts or holds trunk or limbs and provides more than half the effort. 7-Eerxfbvnv-balxgp does ALL the effort. Patient does none of the effort to complete the activity. Or, the assistance of 2 or more helpers is required for the patient to complete the activity. If activity was not attempted, code reason: 7-Patient Refused. 9-Not Applicable-not attempted and the patient did not perform the activity before the current illness, exacerbation or injury. 10-Not Attempted due to Environmental Limitations-(lack of equipment, weather restraints, etc.). 88-Not Attempted due to Medical Conditions or Safety Concerns. Roll Left & Right (QC): 6 Lying to Sitting/Side of Bed(Q: 4 Sit to Stand (QC): 4 Pt requires surface to be raised in order to crr-ql-rwcht without assistance. Weight Bearing Right Lower Extremity: Right Full Weight Bearing Left Lower Extremity: Left Full Weight Bearing Gait Training Does the Patient Walk?: Yes Distance: 150'x2 Walk 10 feet (QC): 4 Walk 50 ft with 2 Turns(QC): 4 Walk 150 ft (QC): 4 Gait Assistive Device: FWW Pt cued to extend L knee in stance phase. Exercises Seated Therapy Exercises: Ankle pumps, Long arc quads, Hip flexion, Hip abd/add (2s pillow squeeze) Seated Reps: 15 Standing: Hamstring curls (LLE) Standing Reps: 15 Treatments Gait training and LE strengthening Assessment Current Status: Fair Progress Pt is able to complete more exercises in seated than he was supine early this morning. Pt able to bend knee via hamstring curls in standing as he struggled with laying supine for heel slides. CPM set up for patient use. PT [place] Goals [facility] Goals PT [facility] Goals Time Frame: Apr 13, 2020 Roll Left & Right (QC): 4 Sit to Lying (QC): 4 Lying-Sitting on Side/Bed(QC): 4 Sit to Stand (QC): 6 Chair/Bau-sc-Nlxss Xfer(QC): 6 Toilet Transfer (QC): 6 Car Transfer (QC): 6 Does the Patient Walk: Yes Walk 10 feet (QC): 6 Walk 50ft with 2 Turns (QC): 6 Walk 150 ft (QC): 6 Walking 10ft on Uneven Surface: 6 1 Step (curb) (QC): 4 4 Steps (QC): 4 12 Steps (QC): 9 Picking up an Object (QC): 9 Wheel 50 feet with 2 turns (QC: 9 Wheel 150 feet: 9 PT Plan Problem List Problem List: Activity Tolerance, Functional Strength, Safety, Balance, Gait, Transfer, Bed Mobility, ROM Treatment/Plan Treatment Plan: Continue Plan of Care Treatment Plan: Bed Mobility, Concurrent Therapy, Education, Functional Activity [place], Functional Strength, Group Therapy, Gait, Safety, Therapeutic Exercise, Transfers Treatment Duration: Apr 13, 2020 Frequency: 6 times per week Estimated Hrs Per Day: 1.5 hours per day Patient and/or Family Agrees t: Yes Safety Risks/Education Patient Education: Gait Training, Transfer Techniques, Correct Positioning, Safety Issues Teaching Recipient: Patient Teaching Methods: Demonstration, Discussion Response to Teaching: Reinforcement Needed Time/GCodes Time In: 1430 Time Out: 1500 Total Billed Treatment Time: 30 Total Billed Treatment 1 visit GT 15' EX 15' RICKEY SOUSA PT Apr 01, 2020 15:55
[2020-04-01 16:00] VITALS: BP 146/66
--- NOTE | 2020-04-01 17:30 | Cardiology Progress Note ---
Cardiology SOAP Progress Note Subjective: No cardiac complaints. Objective: I&O/Vital Signs 04/04/20 04/04/20 06:01 07:15 Temp 37.0 Pulse 102 Resp 16 B/P (MAP) 134/60 (84) Pulse Ox 94 92 O2 Delivery NIV CPAP Room Air 04/04/20 00:00 Intake Total 1200 ml Output Total 1050 ml Balance 150 ml Weight (Pounds): 343 Weight (Ounces): 0.0 Weight (Calculated Kilograms): [id number] Constitutional: AAO x 3 Respiratory: chest is bilaterally symmetric, lungs clear to auscultation Cardiovascular: regular rate-rhythm, S1 and S2 Gastrointestional: soft, audible bowel sounds Extremities: normal range of motion, non-tender, normal inspection, no lower extremity edema bilateral Neurologic/Psychiatric: no motor/sensory deficits, alert, normal mood/affect, oriented x 3 Skin: normal color Results/Procedures: Labs Laboratory Tests 04/03/20 20:06: Glucometer 235H 04/04/20 05:40: Glucometer 123H 04/04/20 10:50: Glucometer 176H A/P: Assessment/Dx: Paroxysmal atrial fibrillation Hypertension Hyperlipidemia Peripheral edema Plan: Status post left total knee arthroplasty, degenerative joint disease, recovering slowly. Paroxysmal atrial fibrillation, restarted oral anticoagulation and Toprol and continue to monitor Hypertension, restart home medication, monitor blood pressure Hyperlipidemia, continue to monitor lipids Chronic venous stasis changes, chronic pedal edema, no change from baseline. Continue to monitor Diabetes mellitus, followed and managed by primary care physician continue to monitor COPD/obstructive sleep apnea uses C Pap as an outpatient, currently on oxygen Mild anemia, continue to monitor H&H Generalized weakness and debility, starting with physical therapy Thank you for your consultation. Please call me if you have any questions. Jorge Luis Izaguirre MD, FACP, FACC, FSCAI, FHRS, CCDS Interventional Cardiology Cardiac Electrophysiology Vascular Medicine and Endovascular Interventions Casey IZAGUIRRE MD Apr 01, 2020 17:30
--- NOTE | 2020-04-01 20:29 | NUR ---
BEDSIDE REPORT RECEIVED FROM SAVITA MOSES, ASSUME CARE OF PT
[2020-04-01] MEDS: ALPRAZolam 0.25 MG (XANAX) TAB PO PRN (21:09)
--- NOTE | 2020-04-01 21:09 | NUR ---
C/O PAIN & ANXIETY, PAIN LEVEL 5/10 ON NUMERIC SCALE, PERCOCET 5/325 1 TAB & Xanax 0.25 & melatonin given
[2020-04-01] MEDS: MELATONIN 3 MG TABLET PO PRN (21:10)
--- NOTE | 2020-04-01 22:00 | NUR ---
RESTING QUIETLY IN BED, PAIN LEVEL 0/10 ON CNPI SCALE
[2020-04-02] MEDS: oxyCODONE/APAP 5/325MG (PERCOCET 5) TABLET PO PRN ×5 (04:34→21:10)
--- NOTE | 2020-04-02 04:34 | NUR ---
c/olt knee pain, level 6/10 on numeric scale, Percocet 5/325 1 tab given
--- NOTE | 2020-04-02 05:05 | NUR ---
resting quietly in bed, pain level 0/10 on CNPI SCALE
[2020-04-02 05:47] VITALS: BP 167/72
[2020-04-02] MEDS: MULTIVIT W/MINERALS TAB (THERAGRAN M) PO SCH (06:27)
[2020-04-02] MEDS: inSUlin ASPART (NovoLOG) 1 UNIT/0.01 ML (CHARGE PER UNIT) SC SCH ×3 (06:28→16:57)
[2020-04-02] MEDS: KCL 10 MEQ TAB (MICRO K) PO SCH (06:28)
[2020-04-02] MEDS: amLODIPine 10 MG (NORVASC) TAB PO SCH (07:48)
[2020-04-02] MEDS: FUROSEMIDE 40 MG (LASIX) TAB PO SCH (07:49)
[2020-04-02] MEDS: SENNA W/DOCUSATE (SENOKOT S) TABLET PO SCH ×2 (07:49→21:10)
[2020-04-02] MEDS: lisINopril 40 MG (PRINIVIL) TABLET PO SCH (07:49)
[2020-04-02] MEDS: FINASTERIDE (PROSCAR) 5 MG TAB PO SCH (07:49)
[2020-04-02] MEDS: PANTOPRAZOLE 40 MG (PROTONIX) TAB PO SCH (07:50)
[2020-04-02] MEDS: ROSUVASTATIN 5 MG (CRESTOR) TABLET PO SCH (07:50)
[2020-04-02] MEDS: APIXABAN 5 MG (ELIQUIS) TABLET PO SCH ×2 (07:50→21:11)
[2020-04-02] MEDS: meTOproloL SUCCINATE 50 MG (TOPROL XL) TAB PO SCH (07:50)
[2020-04-02] MEDS: TAMSULOSIN 0.4 MG (FLOMAX) CAP PO SCH ×2 (07:50→21:11)
[2020-04-02] MEDS: ASPIRIN E.C. 81 MG (ECOTRIN) TAB PO SCH (07:51)
[2020-04-02] MEDS: HYDROCHLOROTHIAZIDE 25 MG (HCTZ) TAB PO SCH (07:51)
[2020-04-02] MEDS: DOCUSATE SODIUM 100 MG (COLACE) CAP PO SCH ×2 (07:51→21:11)
[2020-04-02] MEDS: FLUTICASONE NASAL SPRAY (FLONASE) 16 GM BTL NS SCH (07:52)
[2020-04-02] MEDS: polyethylene glycoL POWDER 17 GM (MIRALAX) PACK PO SCH ×2 (07:52→19:30)
[2020-04-02] MEDS: UMECLIDINIUM BROMIDE (INCRUSE ELLIPTA) 7'S IH SCH (08:14)
--- NOTE | 2020-04-02 08:46 | PM&R Progress Note ---
Subjective HPI/CC On Admission Date Seen by Provider: Apr 02, 2020 Time Seen by Provider: 10:00 Subjective/Events-last exam 04/02/20: Bowels are moving very well Oxycodone is handling the pain Iron is low so will initiate IV iron infusions Has a lot to do at home so wants to go home soon 04/01/20: Potassium 3.5 ordered potassium Doing well but having a hard time this morning Pain is okay but having difficulty performing in PT Pt appears to be frustrated Checked meds and labs Reviewed therapy notes Conferred with RN No fever now COugh noted but dry and chronic CPM used for a bit and tolerated well Eliquis BID tolerated and that is chronic Large loose stool yesterday so will maintain Colace IS ordered and compliant Up to chair now and it was easier compared to yesterday 3 people required for transfer yesterday and today much easier Cardiology Dr Haas checked on him Dr Neville checked on him Checked meds and labs Conferred with RN Reviewed therapy notes Review of Systems General: Fatigue, Malaise Neurological: Weakness Objective Exam Vital Signs Vital Signs Date Time Temp Pulse Resp B/P (MAP) Pulse Ox O2 Delivery O2 Flow Rate FiO2 04/02/20 16:24 36.8 99 18 155/66 (95) 96 Room Air Capillary Refill : Less Than 3 SecondsLess Than 3 Seconds General Appearance: No Apparent Distress, WD/WN, Chronically ill, Obese HEENT: PERRL/EOMI, TMs Normal, Normal ENT Inspection, Pharynx Normal Neck: Full Range of Motion, Normal Inspection, Non Tender, Supple, Carotid Bruit Respiratory: Chest Non Tender, Lungs Clear, Normal Breath Sounds, No Accessory Muscle Use, No Respiratory Distress, Decreased Breath Sounds Cardiovascular: Regular Rate, Rhythm, No Gallop, No JVD, No Murmur, Normal Peripheral Pulses Gastrointestinal: Normal Bowel Sounds, No Organomegaly, No Pulsatile Mass, Non Tender, Soft Back: Normal Inspection, No CVA Tenderness, No Vertebral Tenderness Extremity: Normal Capillary Refill, Normal Inspection, Normal Range of Motion (except left leg decreased ROM), Non Tender, No Calf Tenderness, Pedal Edema (trace) Neurologic/Psychiatric: Alert, Oriented x3, No Motor/Sensory Deficits, Normal Mood/Affect, air lift operator II-XII Norm as 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 FIM Transfers Therapy Code Descriptions/Definitions Functional [place] Measure: 0=Not Assessed/NA 4=Minimal Assistance 1=Total Assistance 5=Supervision or Setup 2=Maximal Assistance 6=Modified [place] 3=Moderate Assistance 7=Complete IndependenceSCALE: Activities may be completed with or without assistive devices. 7-Frneccoqns-lcdyvqd completes the activity by him/herself with no assistance from a helper. 5-Set-up or Clean-up Assistance-helper sets up or cleans up; patient completes activity. [place] assists only prior to or following the activity. 4-Supervision or Touching Assistance-helper provides verbal cues and/or touching/steadying and/or contact guard assistance as patient completes activity. Assistance may be provided throughout the activity or intermittently. 3-Partial/Moderate Assistance-helper does LESS THAN HALF the effort. [place] lifts, holds or supports trunk or limbs, but provides less than half the effort. 2-Substantial/Maximal Assistance-helper does MORE THAN HALF the effort. [place] lifts or holds trunk or limbs and provides more than half the effort. 0-Pcjapulgb-tvfckz does ALL the effort. Patient does none of the effort to complete the activity. Or, the assistance of 2 or more helpers is required for the patient to complete the activity. If activity was not attempted, code reason: 7-Patient Refused. 9-Not Applicable-not attempted and the patient did not perform the activity before the current illness, exacerbation or injury. 10-Not Attempted due to Environmental Limitations-(lack of equipment, weather restraints, etc.). 88-Not Attempted due to Medical Conditions or Safety Concerns. Roll Left to Right (QC): 6 Sit to Lying (QC): 4 Sit to Stand (QC): 4 Chair/Pkb-qk-Qbkpw Xfer(QC): 1 Car Transfer (QC): 88 Gait Training Does the Patient Walk?: Yes Distance: 150'x2 Walk 10 feet (QC): 4 Walk 50 ft with 2 Turns(QC): 4 Walk 150 ft (QC): 4 Walking 10ft/uneven surface-QC: 88 Gait Assistive Device: FWW Wheelchair Training Does the Pt Use a Wheelchair?: Yes Wheel 50 ft with 2 turns (QC): 2 Wheel 150 ft (QC): 2 Type of Wheelchair: Manual Stair Training 1 Step (curb) (QC): 88 4 Steps (QC): 88 12 Steps (QC): 88 Balance Picking up an Object (QC): 88 ADL-Treatment Eating (QC): 6 Oral Hygiene (QC): 4 (SBA standing at sink) Shower/Bathe Self (QC): 7 (Pt. declines shower at this time. States that he will do tomorrow.) Upper Body Dressing (QC): 5 (Per pt. report) Lower Body Dressing (QC): 3 (Mod assist per pt report. Pt. had clean clothes put on with PT assist prior to OT coming into room.) On/Off Footwear (QC): 4 (SBA with use of dressing stick and sock aide. Pt. uses sock aide at home.) Toileting Hygiene (QC): 7 Assessment/Plan Assessment and Plan Assess & Plan/Chief Complaint Assessment: s/p left knee replacement 03/27/20 Dr Neville ISAAK on CPAP Obesity HTN HLP DM AF OAC maintained Post op fever Post op anemia BPH Plan: IRF protocol Monitor BM Urinary retention risk 03/31/20: Pain control Eliquis maintained chronic for AF CVA PPx and now for also DVT PPx Colace CPAP IS Check labs in am 04/01/20: Replace potassium Maintain bowel regimen Pain control 04/02/20: Start iron infusions after midline placed Pain control Bowel regimen Rehab protocol (1) Status post left knee replacement (2) Postoperative anemia Status: Acute (3) Fever Status: Acute (4) T2DM (type 2 diabetes mellitus) Status: Chronic (5) BPH (benign prostatic hyperplasia) Status: Chronic (6) ISAAK (obstructive sleep apnea) Status: Chronic (7) HLD (hyperlipidemia) Status: Chronic (8) HTN (hypertension) Status: Chronic (9) GERD (gastroesophageal reflux disease) Status: Chronic (10) A-fib Status: Chronic (11) COPD (chronic obstructive pulmonary disease) Status: Chronic MAREN GUTIERREZ DO Apr 02, 2020 08:46
--- NOTE | 2020-04-02 08:46 | Individualized Plan of Care ---
Individualized Plan of Care Rehab Nursing IPOC Order Admission Date Mar 30, 2020 at 12:05 Current Orders Orders Admission Order(Inpt,Obs,Sdc) (03/29/20 12:49) Vital Signs: Per Unit Policy ( 08,16,00 (03/29/20 12:49) Pantera Love 09,21 (03/29/20 12:49) Sequential Compression Device Q4H (03/29/20 12:49) [place] Hoist Operator-Inpt Rehab Con (03/29/20 12:49) Rehab Nursing Orders-Ipoc (03/29/20 12:49) Physical Therapy Rehab Orders (03/29/20 12:49) Occupational Therapy Rehab Ord (03/29/20 12:49) Speech Therapy Rehab Orders (03/29/20 12:49) General/Regular (03/29/20 Lunch) Intake & Output 06,14,22 (03/29/20 12:49) Precautions (Aru) (03/29/20 12:49) Weekly Weight WEEK (03/29/20 12:49) Rehab-Intensity Of Therapy (03/29/20 12:49) Initiate Admission Nursing Pro .admission (03/29/20 12:49) Alprazolam Tablet (Xanax Tablet) (03/29/20 13:00) Calcium Carbonate Chew Tablet (Antacid C (03/29/20 13:00) Diphenhydramine Tablet (Benadryl Tablet) (03/29/20 13:00) Docusate Sodium Capsule (Colace Capsule) (03/29/20 21:00) Docusate Sodium Capsule (Colace Capsule) (03/29/20 13:00) Bisacodyl Suppository (Dulcolax Supposit (03/29/20 13:00) Lactulose Oral Solution (Enulose Oral So (03/29/20 13:00) Na Phos/Na Biphos Enema (Fleet Enema Subhash (03/29/20 13:00) Guaifenesin/Codeine Syrup (Robitussin Ac (03/29/20 13:00) Loperamide Tablet (Imodium Tablet) (03/29/20 13:00) Melatonin Tablet (Melatonin Tablet) (03/29/20 13:00) Polyethylene Glycol Powder Pkt (Miralax (03/29/20 21:00) Ondansetron Oral Dissolve Tab (Zofran (03/29/20 13:00) Senna S Tablet (Senokot S Tablet) (03/29/20 21:00) Initiate Admission Nursing Pro .admission (03/29/20 12:49) Accucheck Achs ACHS (03/30/20 12:51) Dressing Order (Intervention) DAILY (03/30/20 12:51) Incentive Spirometry (Nursing) Q2H (03/30/20 12:51) Oxygen-Administer (03/30/20 12:51) [place]tera Hose (03/30/20 12:51) Ensure Clear (03/30/20 Lunch) General/Regular (03/30/20 Lunch) Apixaban Tablet (Eliquis Tablet) (03/30/20 21:00) Aspirin Enteric Coated Tablet (Ecotrin T (03/31/20 09:00) Finasteride Tablet (Proscar Tablet) (03/31/20 09:00) Fluticasone Nasal [place] (Flonase Nasal S (03/31/20 09:00) Furosemide Tablet (Lasix Tablet) (03/31/20 09:00) Hydrochlorothiazide Cap/Tablet (Hctz Cap (03/31/20 09:00) Therapeutic Multivitamin Tab (Vitamins, (03/31/20 07:00) Ondansetron Injection (Zofran Injectio (03/30/20 13:00) Pantoprazole Tablet (Protonix Tablet) (03/31/20 09:00) Rosuvastatin Tablet (Crestor Tablet) (03/31/20 09:00) Senna S Tablet (Senokot S Tablet) (03/30/20 21:00) Tamsulosin Capsule (Flomax Capsule) (03/30/20 21:00) Acetaminophen Tablet/Caplet (Tylenol T (03/30/20 13:00) Umeclidinium [place] Inhaler (Incruse El (03/31/20 08:00) Amlodipine Tablet (Norvasc Tablet) (03/31/20 09:00) Diphenhydramine Injection (Benadryl Inje (03/30/20 13:00) Insulin Aspart (Novolog) (Novolog (Charg (03/30/20 17:00) Insulin Determir (Per Unit) (Levemir (Pe (03/30/20 21:00) Lisinopril Tablet (Zestril Tablet) (03/31/20 09:00) Metoprolol Succinate (Xl) Tab (Toprol Xl (03/31/20 09:00) Oxycodone/Apap 5/325mg Tablet (Percocet (03/30/20 13:00) Consult Cardiology (03/30/20 12:51) Incentive Spirometry Initial (03/30/20 12:51) Incentive Spirometry (Nursing) Q2H (03/30/20 12:51) Cpap (Set Up) (03/30/20 12:51) Patient Visit (03/30/20 ) Pt Eval Low Complexity (03/30/20 ) Functional Activities, Ea 15 (03/30/20 ) Ambulate 08,12,20 (03/30/20 13:57) Sequential Compression Device Q4H (03/30/20 13:57) Dvt/Vte Risk - Notifiy Physici Q4H (03/30/20 13:57) Flu Quad High Dose [id number] (Fluzone Hi (03/30/20 14:15) Acetaminophen Tablet/Caplet (Tylenol T (03/30/20 17:30) Follow-Up Appointment (03/31/20 11:53) Cbc With Automated Diff (04/01/20 06:00) Comprehensive Metabolic Panel (04/01/20 06:00) Iron Test (Fe) (04/01/20 06:00) Potassium Chloride (Tablet) (Klor Con Ta (04/01/20 08:30) Potassium Chloride (Tablet) (Klor Con Ta (04/02/20 07:00) Patient Visit (04/01/20 ) Speech Sound Lang Comp (04/01/20 ) Patient Visit (04/01/20 ) Gait Training, Ea 15 Min (04/01/20 ) Functional Activities, Ea 15 (04/01/20 ) Exercise Therap, Ea 15 Min (04/01/20 ) Patient Visit (04/01/20 ) Exercise Therap, Ea 15 Min (04/01/20 ) Gait Training, Ea 15 Min (04/01/20 ) Venous Access Request Order (04/02/20 10:28) Iron Sucrose Injection (Venofer Injectio (04/02/20 10:30) Patient Visit (04/02/20 ) Exercise Therap, Ea 15 Min (04/02/20 ) Gait Training, Ea 15 Min (04/02/20 ) Rehab Nursing Orders: Ongoing Assess. of Cognitive Status, Ongoing Assess. of Function Status, Bladder Management, Bladder Scan, Bladder Training, Bowel Management, Bowel Training, Disease Management & Educaiton, DVT Prophylaxis, Fall Prevention, Fluid/Electrolyte/Nutrition Mgmt, Infection Prevention, Medication Management & Education, Management of Risks & Complications, Management of Skin Intergrity, Nutrition Management, Pain Management, Patient/Family Support, Safety Management Intensity of Therapy to be met Patient to be seen: Min.3h per day/5 of 7d PT IPOC Problem List: Activity Tolerance, Functional Strength, Safety, Balance, Gait, Transfer, Bed Mobility, ROM Treatment Plan: Continue Plan of Care Bed Mobility, Concurrent Therapy, Education, Functional Activity [place], Funct ional Strength, Group Therapy, Gait, Safety, Therapeutic Exercise, Transfers Treatment Duration: Apr 13, 2020 Frequency: 6 times per week Estimated Hrs Per Day: 1.5 hours per day OT IPOC Problems: Decreased Activ Tolerance, Decreased UE Strength, Dependent Transfers, Impaired Funct Balance, Impaired I ADL's, Impaired Self-Care Skills OT Treatment, Training and Edu: Yes Plan of Care: ADL Retraining, Functional Mobility, UE Funct Exercise/Act Treatment Duration: Apr 15, 2020 Frequency: At least 5 of 7 days/Wk (IRF) Estimated Hrs Per Day: 1.[address] IPOC Speech Therapy Treatment Plan: Discontinue ST Treatment Duration: Apr 01, 2020 Frequency: 1 time per week Estimated Hrs Per Day: .25 hour per day [place]ola Hoist Operator/Case Mgmt [place] Hoist Operator/Case Managemen: Discharge Planning Dietitian/Chain Repairer Dietitian/Chain Repairer to monitor nutritional status and make changes and/or recommendations as needed and work with speech pathology on dietary upgrades as the occur. Physician IPOC Medical Issues being managed closely and that require the 24 hour availability of a physician: Recent knee replacement with h/o ISAAK on CPAP and recurrent fever post op with severe anemia in need of iron infusions will be high risk for decompensation. Medical Issues: Bowel/Bladder Function, DVT Prophylaxis, Falls Precautions, Fluid/Electrolyte/Nutrition Balance, Infection Protection, Pain Management Brief Synthesis of Preadmission Screen, Post-Admission Evaluation, and Therapy Evaluations: PT OT will focus on regaining function with ambulation with fall risk prevention along with regaining ADL independence. Medical Prognosis: Good Anticipated Length of Stay: 7 days MAREN GUTIERREZ DO Apr 02, 2020 08:46
--- NOTE | 2020-04-02 09:55 | Occupational Ther Daily Note ---
OT Current Status-Daily Note Subjective Pt. reports pain in left knee, but does not state pain level. Nursing indicates it is not quite time for another pain pill yet. Appearance Pt. up in chair and is agreeable to work with OT. Mental Status/Objective Patient Orientation: Person, Place, Time, Situation ADL-Treatment Therapy Code Descriptions/Definitions Functional [place] Measure: 0=Not Assessed/NA 4=Minimal Assistance 1=Total Assistance 5=Supervision or Setup 2=Maximal Assistance 6=Modified [place] 3=Moderate Assistance 7=Complete IndependenceSCALE: Activities may be completed with or without assistive devices. 1-Myadtrsriq-mysafvj completes the activity by him/herself with no assistance from a helper. 5-Set-up or Clean-up Assistance-helper sets up or cleans up; patient completes activity. [place] assists only prior to or following the activity. 4-Supervision or Touching Assistance-helper provides verbal cues and/or marilu david/steadying and/or contact guard assistance as patient completes activity. Assistance may be provided throughout the activity or intermittently. 3-Partial/Moderate Assistance-helper does LESS THAN HALF the effort. [place] lifts, holds or supports trunk or limbs, but provides less than half the effort. 2-Substantial/Maximal Assistance-helper does MORE THAN HALF the effort. [place] lifts or holds trunk or limbs and provides more than half the effort. 8-Oalpdcwsm-qqzkqe does ALL the effort. Patient does none of the effort to complete the activity. Or, the assistance of 2 or more helpers is required for the patient to complete the activity. If activity was not attempted, code reason: 7-Patient Refused. 9-Not Applicable-not attempted and the patient did not perform the activity before the current illness, exacerbation or injury. 10-Not Attempted due to Environmental Limitations-(lack of equipment, weather restraints, etc.). 88-Not Attempted due to Medical Conditions or Safety Concerns. Eating (QC): 6 Shower/Bathe Self (QC): 4 (CGA at times in stance while in the shower.) Upper Body Dressing (QC): 5 Lower Body Dressing (QC): 4 (CGA. Pt. able to use dressing stick to don shorts over feet, and then CGA in stance to don over hips.) On/Off Footwear: 3 (SBA to don slipper socks with dressing stick, and mod assist to don slip on shoes with dressing stick.) Other Treatment After shower, pt. dressed in bathroom area using AE. Pt. ambulated with walker and CGA to reclining chair in room. OT donned fresh ARLETTE hose and pt. reclined chair. All needs met. Education OT Patient Education: Correct positioning, Modified ADL techniques, Progress toward Goal/Update tx plan, Purpose of tx/functional activities, Reviewed precautions, Rehab process, Transfer techniques, Use of adapted equipment Teaching Recipient: Patient Teaching Methods: Demonstration, Discussion Response to Teaching: Verbalize Understanding, Return Demonstration OT Short Term Goals Short Term Goals Time Frame: Apr 08, 2020 Eatin Oral hygiene: 6 Toileting hygiene: 4 Shower/bathe self: 3 Upper body dressin Lower body dressin Putting on/taking off footwear: 4 OT Care Home Goals Care Home Goals Time Frame: Apr 15, 2020 Eating (QC): 6 Oral Hygiene (QC): 6 Toileting Hygiene (QC): 6 Shower/Bathe Self (QC): 4 Upper Body Dressing (QC): 6 Lower Body Dressing (QC): 6 On/Off Footwear (QC): 6 Additional Goals: 1-Demonstrate ADL Tasks, 2-Verbalize Understanding, 3- ImproveStrength/[place] 1=Demonstrate adherence to instructed precautions during ADL tasks. 2=Patient will verbalize/demonstrate understanding of assistive devices/modifications for ADL. 3=Patient will improve strength/tolerance for activity to enable patient to perform ADL's. OT Education/Plan Problem List/Assessment Assessment: Decreased Activ Tolerance, Dependent Transfers, Impaired Funct Balance, Impaired I ADL's, Impaired Self-Care Skills Discharge Recommendations Plan/Recommendations: Continue POC Therapy Discharge Recommendati: Home & Family, Post Acute OT Equpiment Recommendations-D/C: Hip Kit Treatment Plan/Plan of Care Treatment,Training & Education: Yes Patient would benefit from OT for education, treatment and training to promote independence in ADL's, mobility, safety and/or upper extremity function for ADL's. Plan of Care: ADL Retraining, Functional Mobility, UE Funct Exercise/Act Treatment Duration: Apr 15, 2020 Frequency: At least 5 of 7 days/Wk (IRF) Estimated Hrs Per Day: 1.5 hours per day Agreement: Yes Rehab Potential: Good Time/GCodes Start Time: 08:30 Stop Time: 09:30 Total Time Billed (hr/min): 60 Billed Treatment Time 1, ADL x 4 NELSON MERRITT OT Apr 02, 2020 09:55
--- NOTE | 2020-04-02 11:28 | Physical Therapy Daily Note ---
PT Daily Note-Current Subjective Pt presents sitting in recliner, pt agrees to PT. Pt reports unrated pain in L knee. Appearance At end of PT treatment, patient returns to recliner where he has access to call button, tray, and all needs have been met. Nurse is present in room. Mental Status Patient Orientation: Person, Place, Time, Eyes Open, Situation, Normal For Age Transfers SCALE: Activities may be completed with or without assistive devices. 2-Hzfjgeoiyk-nolphtm completes the activity by him/herself with no assistance from a helper. 5-Set-up or Clean-up Assistance-helper sets up or cleans up; patient completes activity. [place] assists only prior to or following the activity. 4-Supervision or Touching Assistance-helper provides verbal cues and/or touchi ng/steadying and/or contact guard assistance as patient completes activity. Assistance may be provided throughout the activity or intermittently. 3-Partial/Moderate Assistance-helper does LESS THAN HALF the effort. [place] lifts, holds or supports trunk or limbs, but provides less than half the effort. 2-Substantial/Maximal Assistance-helper does MORE THAN HALF the effort. [place] lifts or holds trunk or limbs and provides more than half the effort. 3-Zolimplpy-mduhyl does ALL the effort. Patient does none of the effort to complete the activity. Or, the assistance of 2 or more helpers is required for the patient to complete the activity. If activity was not attempted, code reason: 7-Patient Refused. 9-Not Applicable-not attempted and the patient did not perform the activity before the current illness, exacerbation or injury. 10-Not Attempted due to Environmental Limitations-(lack of equipment, weather restraints, etc.). 88-Not Attempted due to Medical Conditions or Safety Concerns. Sit to Stand (QC): 4 Chair/Rqk-gh-Cmktf Xfer(QC): 4 Weight Bearing Right Lower Extremity: Right Full Weight Bearing Left Lower Extremity: Left Full Weight Bearing Gait Training Does the Patient Walk?: Yes Distance: 150' x2 Walk 10 feet (QC): 4 Walk 50 ft with 2 Turns(QC): 4 Gait Assistive Device: FWW slow ambulation, antalgic, good step through Exercises Seated Therapy Exercises: Ankle pumps, Long arc quads, Hamstring Curls (red theraband), Hip abd/add Seated Reps: 30 Standing: Marching (ambulating marches x6'), Sit to Stand, Side steps (B 6' x3) Standing Reps: 30 NuStep Minutes: 15 NuStep Workload: 4 Treatments LE strengthening, ambulation, ROM Assessment Current Status: Fair Progress Pt is more motivated to complete transfers independently. Pt cued to use parallel bars/walker to steady self more PT Sap Hana Architect Goals Senior Care Goals PT Sap Hana Architect Goals Time Frame: Apr 13, 2020 Roll Left & Right (QC): 4 Sit to Lying (QC): 4 Lying-Sitting on Side/Bed(QC): 4 Sit to Stand (QC): 6 Chair/Uxi-rz-Jxblp Xfer(QC): 6 Toilet Transfer (QC): 6 Car Transfer (QC): 6 Does the Patient Walk: Yes Walk 10 feet (QC): 6 Walk 50ft with 2 Turns (QC): 6 Walk 150 ft (QC): 6 Walking 10ft on Uneven Surface: 6 1 Step (curb) (QC): 4 4 Steps (QC): 4 12 Steps (QC): 9 Picking up an Object (QC): 9 Wheel 50 feet with 2 turns (QC: 9 Wheel 150 feet: 9 PT Plan Problem List Problem List: Activity Tolerance, Functional Strength, Safety, Balance, Gait, Transfer, Bed Mobility, ROM Treatment/Plan Treatment Plan: Continue Plan of Care Treatment Plan: Bed Mobility, Concurrent Therapy, Education, Functional Activity [place], Functional Strength, Group Therapy, Gait, Safety, Therapeutic Exercise, Transfers Treatment Duration: Apr 13, 2020 Frequency: 6 times per week Estimated Hrs Per Day: 1.5 hours per day Patient and/or Family Agrees t: Yes Safety Risks/Education Patient Education: Gait Training, Transfer Techniques, Correct Positioning, Safety Issues Teaching Recipient: Patient Teaching Methods: Demonstration, Discussion Response to Teaching: Reinforcement Needed Time/GCodes Time In: 1000 Time Out: 1130 Total Billed Treatment Time: 90 Total Billed Treatment 1 visit GT 15' EX 75' RICKEY SOUSA PT Apr 02, 2020 11:28
[2020-04-02] MEDS: IRON SUCROSE 200 MG/10 ML (VENOFER) VIAL IV SCH (12:33)
--- NOTE | 2020-04-02 13:30 | NUR ---
THIS RN TO THE FLOOR TO ATTEMPT TO OBTAIN MIDLINE ACCESS. PT'S RN INFORMS THIS RN THAT PIV HAS BEEN PLACED ET MIDLINE IS NOT NEEDED AT THIS TIME.
--- NOTE | 2020-04-02 15:27 | Occupational Ther Daily Note ---
OT Current Status-Daily Note Subjective No pain reported. Appearance Pt. in bed. Agrees to work with OT. Mental Status/Objective Patient Orientation: Person, Place, Time, Situation ADL-Treatment Therapy Code Descriptions/Definitions Functional [place] Measure: 0=Not Assessed/NA 4=Minimal Assistance 1=Total Assistance 5=Supervision or Setup 2=Maximal Assistance 6=Modified [place] 3=Moderate Assistance 7=Complete IndependenceSCALE: Activities may be completed with or without assistive devices. 0-Wpzgcgfhdi-dpykbxr completes the activity by him/herself with no assistance from a helper. 5-Set-up or Clean-up Assistance-helper sets up or cleans up; patient completes activity. [place] assists only prior to or following the activity. 4-Supervision or Touching Assistance-helper provides verbal cues and/or touching/steadying and/or contact guard assistance as patient completes activity. Assistance may be provided throughout the activity or intermittently. 3-Partial/Moderate Assistance-helper does LESS THAN HALF the effort. [place] lifts, holds or supports trunk or limbs, but provides less than half the effort. 2-Substantial/Maximal Assistance-helper does MORE THAN HALF the effort. [place] lifts or holds trunk or limbs and provides more than half the effort. 7-Xersgsktt-tvcslz does ALL the effort. Patient does none of the effort to complete the activity. Or, the assistance of 2 or more helpers is required for the patient to complete the activity. If activity was not attempted, code reason: 7-Patient Refused. 9-Not Applicable-not attempted and the patient did not perform the activity before the current illness, exacerbation or injury. 10-Not Attempted due to Environmental Limitations-(lack of equipment, weather restraints, etc.). 88-Not Attempted due to Medical Conditions or Safety Concerns. On/Off Footwear: 4 (SBA with dressing stick and sock aide to doff/don slipper socks.) Toileting Hygiene (QC): 4 (SBA to use urinal.) Other Treatment Pt. transferred supine-sit with min assist and increased time needed. Stood with min assist and transferred to reclining chair. Pt. practiced doffing/donning slipper socks with AE. Also used urinal for toileting. All needs met. Education OT Patient Education: Correct positioning, Modified ADL techniques, Progress toward Goal/Update tx plan, Purpose of tx/functional activities, Reviewed precautions, Rehab process, Transfer techniques Teaching Recipient: Patient Teaching Methods: Demonstration, Discussion Response to Teaching: Verbalize Understanding, Return Demonstration OT Short Term Goals Short Term Goals Time Frame: Apr 08, 2020 Eatin Oral hygiene: 6 Toileting hygiene: 4 Shower/bathe self: 3 Upper body dressin Lower body dressin Putting on/taking off footwear: 4 OT Supervisor [employer]ning Goals Mcfp Goals Time Frame: Apr 15, 2020 Eating (QC): 6 Oral Hygiene (QC): 6 Toileting Hygiene (QC): 6 Shower/Bathe Self (QC): 4 Upper Body Dressing (QC): 6 Lower Body Dressing (QC): 6 On/Off Footwear (QC): 6 Additional Goals: 1-Demonstrate ADL Tasks, 2-Verbalize Understanding, 3- ImproveStrength/[place] 1=Demonstrate adherence to instructed precautions during ADL tasks. 2=Patient will verbalize/demonstrate understanding of assistive devices/modifications for ADL. 3=Patient will improve strength/tolerance for activity to enable patient to perform ADL's. OT Education/Plan Problem List/Assessment Assessment: Decreased Activ Tolerance, Impaired I ADL's, Impaired Self-Care Skills Discharge Recommendations Plan/Recommendations: Continue POC Therapy Discharge Recommendati: Home & Family, Post Acute OT Treatment Plan/Plan of Care Treatment,Training & Education: Yes Patient would benefit from OT for education, treatment and training to promote independence in ADL's, mobility, safety and/or upper extremity function for ADL's. Plan of Care: ADL Retraining, Functional Mobility, UE Funct Exercise/Act Treatment Duration: Apr 15, 2020 Frequency: At least 5 of 7 days/Wk (IRF) Estimated Hrs Per Day: 1.5 hours per day Agreement: Yes Rehab Potential: Good Time/GCodes Start Time: 14:20 Stop Time: 14:50 Total Time Billed (hr/min): 30 Billed Treatment Time 1, ADL x 2 NELSON MERRITT OT Apr 02, 2020 15:27
[2020-04-02 16:24] VITALS: BP 155/66
--- NOTE | 2020-04-02 17:50 | Cardiology Progress Note ---
Cardiology SOAP Progress Note Subjective: No cardiac complaints. Objective: I&O/Vital Signs 04/04/20 04/04/20 06:01 07:15 Temp 37.0 Pulse 102 Resp 16 B/P (MAP) 134/60 (84) Pulse Ox 94 92 O2 Delivery NIV CPAP Room Air 04/04/20 00:00 Intake Total 1200 ml Output Total 1050 ml Balance 150 ml Weight (Pounds): 343 Weight (Ounces): 0.0 Weight (Calculated Kilograms): [phone] Constitutional: AAO x 3 Respiratory: chest is bilaterally symmetric, lungs clear to auscultation Cardiovascular: regular rate-rhythm, S1 and S2 Gastrointestional: soft, audible bowel sounds Extremities: normal range of motion, non-tender, normal inspection, no lower extremity edema bilateral Neurologic/Psychiatric: no motor/sensory deficits, alert, normal mood/affect, oriented x 3 Skin: normal color, warm/dry Results/Procedures: Labs Laboratory Tests 04/03/20 20:06: Glucometer 235H 04/04/20 05:40: Glucometer 123H 04/04/20 10:50: Glucometer 176H A/P: Assessment/Dx: Paroxysmal atrial fibrillation Hypertension Hyperlipidemia Peripheral edema Plan: Status post left total knee arthroplasty, degenerative joint disease, recovering slowly. Paroxysmal atrial fibrillation, restarted oral anticoagulation and Toprol and continue to monitor Hypertension, restart home medication, monitor blood pressure Hyperlipidemia, continue to monitor lipids Chronic venous stasis changes, chronic pedal edema, no change from baseline. Continue to monitor Diabetes mellitus, followed and managed by primary care physician continue to monitor COPD/obstructive sleep apnea uses C Pap as an outpatient, currently on oxygen Mild anemia, continue to monitor H&H Generalized weakness and debility, starting with physical therapy Thank you for your consultation. Please call me if you have any questions. Jorge Luis Izaguirre MD, FACP, FACC, FSCAI, FHRS, CCDS Interventional Cardiology Cardiac Electrophysiology Vascular Medicine and Endovascular Interventions Casey IZAGUIRRE MD Apr 02, 2020 17:50
[2020-04-02] MEDS: ALPRAZolam 0.25 MG (XANAX) TAB PO PRN (21:10)
[2020-04-02] MEDS: MELATONIN 3 MG TABLET PO PRN (21:11)
--- NOTE | 2020-04-02 23:20 | NUR ---
Took over care of patient from AURELIA Ospina. Agreed with previous assessment services manager. Pt resting with eyes closed, no complaints for now.
[2020-04-03] MEDS: MULTIVIT W/MINERALS TAB (THERAGRAN M) PO SCH (06:15)
[2020-04-03] MEDS: KCL 10 MEQ TAB (MICRO K) PO SCH (06:15)
[2020-04-03 06:37] VITALS: BP 129/79
[2020-04-03] MEDS: inSUlin ASPART (NovoLOG) 1 UNIT/0.01 ML (CHARGE PER UNIT) SC SCH ×3 (06:50→15:33)
[2020-04-03] MEDS: UMECLIDINIUM BROMIDE (INCRUSE ELLIPTA) 7'S IH SCH (07:24)
[2020-04-03] MEDS: oxyCODONE/APAP 5/325MG (PERCOCET 5) TABLET PO PRN ×4 (08:26→21:18)
[2020-04-03] MEDS: amLODIPine 10 MG (NORVASC) TAB PO SCH (08:27)
[2020-04-03] MEDS: meTOproloL SUCCINATE 50 MG (TOPROL XL) TAB PO SCH (08:27)
[2020-04-03] MEDS: HYDROCHLOROTHIAZIDE 25 MG (HCTZ) TAB PO SCH (08:27)
[2020-04-03] MEDS: TAMSULOSIN 0.4 MG (FLOMAX) CAP PO SCH ×2 (08:28→21:18)
[2020-04-03] MEDS: PANTOPRAZOLE 40 MG (PROTONIX) TAB PO SCH (08:28)
[2020-04-03] MEDS: DOCUSATE SODIUM 100 MG (COLACE) CAP PO SCH ×2 (08:28→19:55)
[2020-04-03] MEDS: ROSUVASTATIN 5 MG (CRESTOR) TABLET PO SCH (08:28)
[2020-04-03] MEDS: lisINopril 40 MG (PRINIVIL) TABLET PO SCH (08:29)
[2020-04-03] MEDS: SENNA W/DOCUSATE (SENOKOT S) TABLET PO SCH ×2 (08:29→19:56)
[2020-04-03] MEDS: APIXABAN 5 MG (ELIQUIS) TABLET PO SCH ×2 (08:30→21:18)
[2020-04-03] MEDS: FINASTERIDE (PROSCAR) 5 MG TAB PO SCH (08:30)
[2020-04-03] MEDS: FUROSEMIDE 40 MG (LASIX) TAB PO SCH (08:30)
[2020-04-03] MEDS: ASPIRIN E.C. 81 MG (ECOTRIN) TAB PO SCH (08:30)
[2020-04-03] MEDS: polyethylene glycoL POWDER 17 GM (MIRALAX) PACK PO SCH ×2 (08:35→19:56)
[2020-04-03] MEDS: FLUTICASONE NASAL SPRAY (FLONASE) 16 GM BTL NS SCH (08:35)
--- NOTE | 2020-04-03 09:11 | PM&R Progress Note ---
Subjective HPI/CC On Admission Date Seen by Provider: Apr 03, 2020 Time Seen by Provider: 09:00 Subjective/Events-last exam 04/03/20: Midline will be placed and IV iron started Pain is pretty well controlled Participating in therapy Wants to go home soon 04/02/20: Bowels are moving very well Oxycodone is handling the pain Iron is low so will initiate IV iron infusions Has a lot to do at home so wants to go home soon 04/01/20: Potassium 3.5 ordered potassium Doing well but having a hard time this morning Pain is okay but having difficulty performing in PT Pt appears to be frustrated Checked meds and labs Reviewed therapy notes Conferred with RN No fever now COugh noted but dry and chronic CPM used for a bit and tolerated well Eliquis BID tolerated and that is chronic Large loose stool yesterday so will maintain Colace IS ordered and compliant Up to chair now and it was easier compared to yesterday 3 people required for transfer yesterday and today much easier Cardiology Dr Haas checked on him Dr Neville checked on him Checked meds and labs Conferred with RN Reviewed therapy notes Review of Systems General: Fatigue, Malaise Neurological: Weakness Objective Exam Vital Signs Vital Signs Date Time Temp Pulse Resp B/P (MAP) Pulse Ox O2 Delivery O2 Flow Rate FiO2 04/03/20 20:45 Room Air 04/03/20 17:32 37.0 82 16 137/64 (88) 94 Capillary Refill : Less Than 3 SecondsLess Than 3 Seconds General Appearance: No Apparent Distress, WD/WN, Chronically ill, Obese HEENT: PERRL/EOMI, TMs Normal, Normal ENT Inspection, Pharynx Normal Neck: Full Range of Motion, Normal Inspection, Non Tender, Supple, Carotid Bruit Respiratory: Chest Non Tender, Lungs Clear, Normal Breath Sounds, No Accessory Muscle Use, No Respiratory Distress, Decreased Breath Sounds Cardiovascular: Regular Rate, Rhythm, No Gallop, No JVD, No Murmur, Normal Peripheral Pulses Gastrointestinal: Normal Bowel Sounds, No Organomegaly, No Pulsatile Mass, Non Tender, Soft Back: Normal Inspection, No CVA Tenderness, No Vertebral Tenderness Extremity: Normal Capillary Refill, Normal Inspection, Normal Range of Motion (except left leg decreased ROM), Non Tender, No Calf Tenderness, Pedal Edema (trace) Neurologic/Psychiatric: Alert, Oriented x3, No Motor/Sensory Deficits, Normal Mood/Affect, contract administration coordinator II-XII Norm as 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 FIM Transfers Therapy Code Descriptions/Definitions Functional [place] Measure: 0=Not Assessed/NA 4=Minimal Assistance 1=Total Assistance 5=Supervision or Setup 2=Maximal Assistance 6=Modified [place] 3=Moderate Assistance 7=Complete IndependenceSCALE: Activities may be completed with or without assistive devices. 8-Behzsvoubq-qrxfryy completes the activity by him/herself with no assistance from a helper. 5-Set-up or Clean-up Assistance-helper sets up or cleans up; patient completes activity. [place] assists only prior to or following the activity. 4-Supervision or Touching Assistance-helper provides verbal cues and/or touching/steadying and/or contact guard assistance as patient completes activity. Assistance may be provided throughout the activity or intermittently. 3-Partial/Moderate Assistance-helper does LESS THAN HALF the effort. [place] lifts, holds or supports trunk or limbs, but provides less than half the effort. 2-Substantial/Maximal Assistance-helper does MORE THAN HALF the effort. [place] lifts or holds trunk or limbs and provides more than half the effort. 3-Bvfhqgdxd-pllcdt does ALL the effort. Patient does none of the effort to complete the activity. Or, the assistance of 2 or more helpers is required for the patient to complete the activity. If activity was not attempted, code reason: 7-Patient Refused. 9-Not Applicable-not attempted and the patient did not perform the activity before the current illness, exacerbation or injury. 10-Not Attempted due to Environmental Limitations-(lack of equipment, weather restraints, etc.). 88-Not Attempted due to Medical Conditions or Safety Concerns. Roll Left to Right (QC): 6 Sit to Lying (QC): 4 Sit to Stand (QC): 4 Chair/Cvz-hn-Naiht Xfer(QC): 4 Car Transfer (QC): 88 Gait Training Distance: 150' x2 Walk 10 feet (QC): 4 Walk 50 ft with 2 Turns(QC): 4 Walk 150 ft (QC): 4 Walking 10ft/uneven surface-QC: 88 Gait Assistive Device: FWW Wheelchair Training Wheel 50 ft with 2 turns (QC): 2 Wheel 150 ft (QC): 2 Stair Training 1 Step (curb) (QC): 88 4 Steps (QC): 88 12 Steps (QC): 88 Balance Picking up an Object (QC): 88 ADL-Treatment Eating (QC): 6 Oral Hygiene (QC): 4 (SBA standing at sink) Shower/Bathe Self (QC): 4 (CGA at times in stance while in the shower.) Upper Body Dressing (QC): 5 Lower Body Dressing (QC): 4 (CGA. Pt. able to use dressing stick to don shorts over feet, and then CGA in stance to don over hips.) On/Off Footwear (QC): 4 (SBA with dressing stick and sock aide to doff/don slipper socks.) Toileting Hygiene (QC): 4 (SBA to use urinal.) Assessment/Plan Assessment and Plan Assess & Plan/Chief Complaint Assessment: s/p left knee replacement 03/27/20 Dr Neville ISAAK on CPAP Obesity HTN HLP DM AF OAC maintained Post op fever Post op anemia BPH Plan: IRF protocol Monitor BM Urinary retention risk 03/31/20: Pain control Eliquis maintained chronic for AF CVA PPx and now for also DVT PPx Colace CPAP IS Check labs in am 04/01/20: Replace potassium Maintain bowel regimen Pain control 04/02/20: Start iron infusions after midline placed Pain control Bowel regimen Rehab protocol 04/03/20: Place mid line for iron infusions Continue bowel regimen Pain control Doing very well (1) Status post left knee replacement (2) Postoperative anemia Status: Acute (3) Fever Status: Acute (4) T2DM (type 2 diabetes mellitus) Status: Chronic (5) BPH (benign prostatic hyperplasia) Status: Chronic (6) ISAAK (obstructive sleep apnea) Status: Chronic (7) HLD (hyperlipidemia) Status: Chronic (8) HTN (hypertension) Status: Chronic (9) GERD (gastroesophageal reflux disease) Status: Chronic (10) A-fib Status: Chronic (11) COPD (chronic obstructive pulmonary disease) Status: Chronic MAREN GUTIERREZ DO Apr 03, 2020 09:11
--- NOTE | 2020-04-03 10:03 | Progress Note ---
Standard Progress Note Progress Notes/Assess & Plan Date Seen by a Provider: Apr 03, 2020 Time Seen by a Provider: 07:30 Progress/Assessment & Plan feeling better today LLE in CPM no calf tenderness Neg Nick's s/p LTKA doing well continue PT/OT Final Diagnosis feeling better Vital Signs Date Time Temp Pulse Resp B/P (MAP) Pulse Ox O2 Delivery O2 Flow Rate FiO2 04/03/20 07:24 91 Room Air 04/03/20 06:37 37.0 101 18 129/79 (96) 96 NIV CPAP 04/02/20 20:15 Room Air 04/02/20 16:24 36.8 99 18 155/66 (95) 96 Room Air I & O 04/03/20 06:59 Intake Total 860 ml Output Total 450 ml Balance 410 ml Laboratory Tests Test 04/02/20 11:23 04/02/20 15:41 04/03/20 06:54 Range/Units Glucometer 190 H 193 H 165 H 70-110 MG/DL LLE--no calf tenderness. Neg Nick's. Incision clean and dry s/p LTKA progressing well continue PT/OT SHELLY CHÁVEZ MD Apr 03, 2020 10:03
--- NOTE | 2020-04-03 10:30 | Physical Therapy Daily Note ---
PT Daily Note-Current Subjective Pt sitting in recliner upon arrival. Pt agrees to PT. Pain Numeric Pain Scale: 7 Location: Incisional, Left Location Body Site: Knee Pain Description: Ache, Tightness Mental Status Patient Orientation: Person, Place, Time, Situation Attachments: Polar Pack Transfers SCALE: Activities may be completed with or without assistive devices. 8-Inobymmpfj-fixkfof completes the activity by him/herself with no assistance from a helper. 5-Set-up or Clean-up Assistance-helper sets up or cleans up; patient completes activity. [place] assists only prior to or following the activity. 4-Supervision or Touching Assistance-helper provides verbal cues and/or touching/steadying and/or contact guard assistance as patient completes activity. Assistance may be provided throughout the activity or intermittently. 3-Partial/Moderate Assistance-helper does LESS THAN HALF the effort. [place] lifts, holds or supports trunk or limbs, but provides less than half the effort. 2-Substantial/Maximal Assistance-helper does MORE THAN HALF the effort. [place] lifts or holds trunk or limbs and provides more than half the effort. 4-Rnrtsqiky-vjcbom does ALL the effort. Patient does none of the effort to complete the activity. Or, the assistance of 2 or more helpers is required for the patient to complete the activity. If activity was not attempted, code reason: 7-Patient Refused. 9-Not Applicable-not attempted and the patient did not perform the activity before the current illness, exacerbation or injury. 10-Not Attempted due to Environmental Limitations-(lack of equipment, weather restraints, etc.). 88-Not Attempted due to Medical Conditions or Safety Concerns. Weight Bearing Right Lower Extremity: Right Full Weight Bearing Left Lower Extremity: Left Full Weight Bearing Gait Training Does the Patient Walk?: Yes Distance: 150' x2 Walk 10 feet (QC): 5 Walk 50 ft with 2 Turns(QC): 5 Walk 150 ft (QC): 5 Gait Persons Needed: 1 Gait Assistive Device: FWW Pt walks with antalgic gait pattern, noticed swelling. Wheelchair Training Does the Pt Use a Wheelchair?: No Exercises Seated Therapy Exercises: Ankle pumps, Long arc quads, Hip flexion, Kicking activity, Hip abd/add Seated Reps: 15 NuStep Minutes: 15 NuStep Workload: 4 Treatments TF to standing and amb. in hallway. Uses NuStep for 15m at WL 4 as well as completes Seated Ex. After RB, amb. in hallway and returns to room to rest in recliner and use urinal. Applied and discussed polar pack use. All needs met, call light in hand. Assessment Current Status: Good Progress Pt reports feeling like he over did it yesterday. LEAD JAVA PROGRAMMER advised will rest as needed. Antalgic gait pattern, observed swelling. Knee on pillow and polar pack applied. PT Radial Saw Operator Goals Radial Saw Operator Goals PT Radial Saw Operator Goals Time Frame: Apr 13, 2020 Roll Left & Right (QC): 4 Sit to Lying (QC): 4 Lying-Sitting on Side/Bed(QC): 4 Sit to Stand (QC): 6 Chair/Nzj-ha-Xjemb Xfer(QC): 6 Toilet Transfer (QC): 6 Car Transfer (QC): 6 Does the Patient Walk: Yes Walk 10 feet (QC): 6 Walk 50ft with 2 Turns (QC): 6 Walk 150 ft (QC): 6 Walking 10ft on Uneven Surface: 6 1 Step (curb) (QC): 4 4 Steps (QC): 4 12 Steps (QC): 9 Picking up an Object (QC): 9 Wheel 50 feet with 2 turns (QC: 9 Wheel 150 feet: 9 PT Plan Problem List Problem List: Activity Tolerance, Functional Strength, Gait Treatment/Plan Treatment Plan: Continue Plan of Care Treatment Plan: Bed Mobility, Concurrent Therapy, Education, Functional Activity [place], Functional Strength, Group Therapy, Gait, Safety, Therapeutic Exercise, Transfers Treatment Duration: Apr 13, 2020 Frequency: 6 times per week Estimated Hrs Per Day: 1.5 hours per day Patient and/or Family Agrees t: Yes Safety Risks/Education Patient Education: Gait Training, Transfer Techniques, Correct Positioning, Safety Issues Teaching Recipient: Patient Teaching Methods: Discussion Response to Teaching: Verbalize Understanding Time/GCodes Time In: 930 Time Out: 1030 Total Billed Treatment Time: 60 Total Billed Treatment 1, GT (20m), EX x2 (25m) & FA (15m) SAVITA LAO LEAD JAVA PROGRAMMER Apr 03, 2020 10:30
[2020-04-03] MEDS: ALPRAZolam 0.25 MG (XANAX) TAB PO PRN ×2 (10:32→21:18)
--- NOTE | 2020-04-03 11:42 | Occupational Ther Daily Note ---
OT Current Status-Daily Note Subjective No pain reported. Appearance Pt. up in chair. Agrees to work with OT. Mental Status/Objective Patient Orientation: Person, Place, Time, Situation ADL-Treatment Therapy Code Descriptions/Definitions Functional [place] Measure: 0=Not Assessed/NA 4=Minimal Assistance 1=Total Assistance 5=Supervision or Setup 2=Maximal Assistance 6=Modified [place] 3=Moderate Assistance 7=Complete IndependenceSCALE: Activities may be completed with or without assistive devices. 8-Qiegfqpbbc-usedeyd completes the activity by him/herself with no assistance from a helper. 5-Set-up or Clean-up Assistance-helper sets up or cleans up; patient completes activity. [place] assists only prior to or following the activity. 4-Supervision or Touching Assistance-helper provides verbal cues and/or touching/steadying and/or contact guard assistance as patient completes activity. Assistance may be provided throughout the activity or intermittently. 3-Partial/Moderate Assistance-helper does LESS THAN HALF the effort. [place] lifts, holds or supports trunk or limbs, but provides less than half the effort. 2-Substantial/Maximal Assistance-helper does MORE THAN HALF the effort. [place] lifts or holds trunk or limbs and provides more than half the effort. 2-Iuzyvotwl-qpuvbt does ALL the effort. Patient does none of the effort to complete the activity. Or, the assistance of 2 or more helpers is required for the patient to complete the activity. If activity was not attempted, code reason: 7-Patient Refused. 9-Not Applicable-not attempted and the patient did not perform the activity before the current illness, exacerbation or injury. 10-Not Attempted due to Environmental Limitations-(lack of equipment, weather restraints, etc.). 88-Not Attempted due to Medical Conditions or Safety Concerns. On/Off Footwear: 3 (Pt. requires SBA to doff slipper socks, and min assist to don slip on shoes with AE.) Other Treatment Pt. is up in chair. Declines showering, as he did this yesterday. Pt. is in clean clothing. Practices footwear in room with adaptive equipment. Stood from lift chair with chair elevated with CGA and walker. Ambulated to dining kitchen area with walker. Pt. sat in chair and educated on using walker basket, kitchen safety, and techniques to use at home to make tasks easier in the kitchen. Pt. reports that he will have assistance at home between his friend and his daugh tona. Pt. had difficulty standing from this chair, and required max x 2 for sit- stand due to chair being too low. Ambulated with CGA to gym with walker and completed 10 minutes on arm bike. Tolerated at mod resistance for overall strength and endurance. Tolerated this well. Noted pt. still having difficulty lifting left LE, and scooting forward when moving chair. Ambulated back to room. All needs met. Education OT Patient Education: Correct positioning, Exercise program, Modified ADL techniques, Progress toward Goal/Update tx plan, Purpose of tx/functional activities, Reviewed precautions, Rehab process, Transfer techniques, Use of adapted equipment Teaching Recipient: Patient Teaching Methods: Demonstration, Discussion Response to Teaching: Verbalize Understanding, Return Demonstration OT Short Term Goals Short Term Goals Time Frame: Apr 08, 2020 Eatin Oral hygiene: 6 Toileting hygiene: 4 Shower/bathe self: 3 Upper body dressin Lower body dressin Putting on/taking off footwear: 4 OT Mcc Goals Manager Neonatal Goals Time Frame: Apr 15, 2020 Eating (QC): 6 Oral Hygiene (QC): 6 Toileting Hygiene (QC): 6 Shower/Bathe Self (QC): 4 Upper Body Dressing (QC): 6 Lower Body Dressing (QC): 6 On/Off Footwear (QC): 6 Additional Goals: 1-Demonstrate ADL Tasks, 2-Verbalize Understanding, 3- ImproveStrength/[place] 1=Demonstrate adherence to instructed precautions during ADL tasks. 2=Patient will verbalize/demonstrate understanding of assistive devices/modifications for ADL. 3=Patient will improve strength/tolerance for activity to enable patient to perform ADL's. OT Education/Plan Problem List/Assessment Assessment: Decreased Activ Tolerance, Decreased UE Strength, Dependent Transfers, Impaired I ADL's, Impaired Self-Care Skills Discharge Recommendations Plan/Recommendations: Continue POC Therapy Discharge Recommendati: Home & Family, Post Acute OT Equpiment Recommendations-D/C: Bath Chair, Hip Kit Treatment Plan/Plan of Care Treatment,Training & Education: Yes Patient would benefit from OT for education, treatment and training to promote independence in ADL's, mobility, safety and/or upper extremity function for ADL's. Plan of Care: ADL Retraining, Functional Mobility, UE Funct Exercise/Act Treatment Duration: Apr 15, 2020 Frequency: At least 5 of 7 days/Wk (IRF) Estimated Hrs Per Day: 1.5 hours per day Agreement: Yes Rehab Potential: Good Time/GCodes Start Time: 08:30 Stop Time: 09:30 Total Time Billed (hr/min): 60 Billed Treatment Time 1, ADL x 30minutes, FA x 15minutes, Ex x 15minutes NELSON MERRITT OT Apr 03, 2020 11:42
--- NOTE | 2020-04-03 14:50 | Therapy Group Daily Note ---
Therapy Daily Group Note Patient Education Topic Home Safety, Home Safety, Exercises, Other List Below (ARU description/expectations) Exercises LE Seated Exercise, UE Exercise Session Ratio (pt:therapist): 4:1 Goal of Session: Education on ARU Expectations, Home Safety Strategies, UE/LE Strengthing Goal Met for this Session: Yes Pt Benefit of Group: Contributions to Others, F/U Use of Strategies @Home, Increased Functional Safety, Increased Functional Strength, Recognition of Peer s, Socialization Other/Notes Pt ambulated using FWW from to [facility] for OT/PT group. Group consisted of LE/UE seated exercises, ARU description/expectations, and home safety. Pt participated in introduction(name, where you are from, and random question), actively listened to peers.Engaged in seated LE/UE exercises. Pt acknowledged understanding of educational topics by giving own examples. Pt ambulated back to room. After group, pt laying in bed. Call light/phone in reach. All needs met. Start Time: 12:50 Stop Time: 14:50 Total Billed Treatment Time: 85 Total Billed Treatment 1, GRP RUSTY ZAMARRIPA Apr 03, 2020 14:49
--- NOTE | 2020-04-03 17:15 | NUR ---
CM/SS PATIENT CARE CONFERENCE Reviewed Summary with patient and his SO/Keke Mohan. Both are in agreement to his target discharge of 04/06/20. HHC: Patient selected [facility] during his [facility] stay prior to transfer. Referral will be completed to initiate services for PT. OT was recommended but patient did not agree to accept. DME: Patient's daughter has gotten two bedside commodes from patient choice agency, [employer]. Discussed additional private pay items of shower chair, dressing stick, and sock aid. Commercial Lender offered to send referral orders to the agency so that the sales tax would be forgiven with remainder out of pocket. Patient and Keke indicate no other needs at this time.
--- NOTE | 2020-04-03 17:16 | Cardiology Progress Note ---
Cardiology SOAP Progress Note Subjective: No cardiac complaints. Objective: I&O/Vital Signs 04/04/20 04/04/20 06:01 07:15 Temp 37.0 Pulse 102 Resp 16 B/P (MAP) 134/60 (84) Pulse Ox 94 92 O2 Delivery NIV CPAP Room Air 04/04/20 00:00 Intake Total 1200 ml Output Total 1050 ml Balance 150 ml Weight (Pounds): 343 Weight (Ounces): 0.0 Weight (Calculated Kilograms): [id number] Constitutional: AAO x 3 Respiratory: chest is bilaterally symmetric, lungs clear to auscultation Cardiovascular: regular rate-rhythm, S1 and S2 Gastrointestional: soft, audible bowel sounds Extremities: normal range of motion, non-tender, normal inspection, no lower extremity edema bilateral Neurologic/Psychiatric: no motor/sensory deficits, alert, normal mood/affect, oriented x 3 Skin: normal color Results/Procedures: Labs Laboratory Tests 04/03/20 20:06: Glucometer 235H 04/04/20 05:40: Glucometer 123H 04/04/20 10:50: Glucometer 176H A/P: Assessment/Dx: Paroxysmal atrial fibrillation Hypertension Hyperlipidemia Peripheral edema Plan: Status post left total knee arthroplasty, degenerative joint disease, recovering slowly. Paroxysmal atrial fibrillation, restarted oral anticoagulation and Toprol and continue to monitor Hypertension, continue home medication, monitor blood pressure Hyperlipidemia, continue to monitor lipids Chronic venous stasis changes, chronic pedal edema, no change from baseline. Continue to monitor Diabetes mellitus, followed and managed by primary care physician continue to monitor COPD/obstructive sleep apnea uses C Pap as an outpatient, currently on oxygen Mild anemia, continue to monitor H&H Generalized weakness and debility, starting with physical therapy Thank you for your consultation. Please call me if you have any questions. Jorge Luis Izaguirre MD, FACP, FACC, FSCAI, FHRS, CCDS Interventional Cardiology Cardiac Electrophysiology Vascular Medicine and Endovascular Interventions Casey IZAGUIRRE MD Apr 03, 2020 17:16
[2020-04-03 17:32] VITALS: BP 137/64
[2020-04-03] MEDS: MELATONIN 3 MG TABLET PO PRN (21:18)
--- NOTE | 2020-04-04 05:31 | PM&R Progress Note ---
Subjective HPI/CC On Admission Date Seen by Provider: Apr 04, 2020 Time Seen by Provider: 10:00 Subjective/Events-last exam 04/04/20: Bowels moved today IV iron infusions will be today, tomorrow and Wednesday before discharge Oxycodone for pain Metformin and Actos restarted Uses his CPAP at night 04/03/20: Midline will be placed and IV iron started Pain is pretty well controlled Participating in therapy Wants to go home soon 04/02/20: Bowels are moving very well Oxycodone is handling the pain Iron is low so will initiate IV iron infusions Has a lot to do at home so wants to go home soon 04/01/20: Potassium 3.5 ordered potassium Doing well but having a hard time this morning Pain is okay but having difficulty performing in PT Pt appears to be frustrated Checked meds and labs Reviewed therapy notes Conferred with RN No fever now COugh noted but dry and chronic CPM used for a bit and tolerated well Eliquis BID tolerated and that is chronic Large loose stool yesterday so will maintain Colace IS ordered and compliant Up to chair now and it was easier compared to yesterday 3 people required for transfer yesterday and today much easier Cardiology Dr Haas checked on him Dr Neville checked on him Checked meds and labs Conferred with RN Reviewed therapy notes Review of Systems General: Fatigue, Malaise Musculoskeletal: leg pain Objective Exam Vital Signs Vital Signs Date Time Temp Pulse Resp B/P (MAP) Pulse Ox O2 Delivery O2 Flow Rate FiO2 04/04/20 20:30 Room Air 04/04/20 17:25 36.2 91 22 132/60 (84) 95 Capillary Refill : Less Than 3 SecondsLess Than 3 Seconds General Appearance: No Apparent Distress, WD/WN, Chronically ill, Obese HEENT: PERRL/EOMI, TMs Normal, Normal ENT Inspection, Pharynx Normal Neck: Full Range of Motion, Normal Inspection, Non Tender, Supple, Carotid Bruit Respiratory: Chest Non Tender, Lungs Clear, Normal Breath Sounds, No Accessory Muscle Use, No Respiratory Distress, Decreased Breath Sounds Cardiovascular: Regular Rate, Rhythm, No Gallop, No JVD, No Murmur, Normal Peripheral Pulses Gastrointestinal: Normal Bowel Sounds, No Organomegaly, No Pulsatile Mass, Non Tender, Soft Back: Normal Inspection, No CVA Tenderness, No Vertebral Tenderness Extremity: Normal Capillary Refill, Normal Inspection, Normal Range of Motion (except left leg decreased ROM), Non Tender, No Calf Tenderness, Pedal Edema (trace) Neurologic/Psychiatric: Alert, Oriented x3, No Motor/Sensory Deficits, Normal Mood/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 FIM Transfers Therapy Code Descriptions/Definitions Functional [place] Measure: 0=Not Assessed/NA 4=Minimal Assistance 1=Total Assistance 5=Supervision or Setup 2=Maximal Assistance 6=Modified [place] 3=Moderate Assistance 7=Complete IndependenceSCALE: Activities may be completed with or without assistive devices. 3-Yyywheunre-bweldmv completes the activity by him/herself with no assistance from a helper. 5-Set-up or Clean-up Assistance-helper sets up or cleans up; patient completes activity. [place] assists only prior to or following the activity. 4-Supervision or Touching Assistance-helper provides verbal cues and/or touching/steadying and/or contact guard assistance as patient completes activity. Assistance may be provided throughout the activity or intermittently. 3-Partial/Moderate Assistance-helper does LESS THAN HALF the effort. [place] lifts, holds or supports trunk or limbs, but provides less than half the effort. 2-Substantial/Maximal Assistance-helper does MORE THAN HALF the effort. [place] lifts or holds trunk or limbs and provides more than half the effort. 0-Htmhrekqu-xyhggv does ALL the effort. Patient does none of the effort to complete the activity. Or, the assistance of 2 or more helpers is required for the patient to complete the activity. If activity was not attempted, code reason: 7-Patient Refused. 9-Not Applicable-not attempted and the patient did not perform the activity before the current illness, exacerbation or injury. 10-Not Attempted due to Environmental Limitations-(lack of equipment, weather restraints, etc.). 88-Not Attempted due to Medical Conditions or Safety Concerns. Roll Left to Right (QC): 6 Sit to Lying (QC): 4 Sit to Stand (QC): 4 Chair/Smf-xx-Pjsrj Xfer(QC): 4 Car Transfer (QC): 88 Gait Training Does the Patient Walk?: Yes Distance: 150' x2 Walk 10 feet (QC): 5 Walk 50 ft with 2 Turns(QC): 5 Walk 150 ft (QC): 5 Walking 10ft/uneven surface-QC: 88 Gait Persons Needed: 1 Gait Assistive Device: FWW Wheelchair Training Does the Pt Use a Wheelchair?: No Wheel 50 ft with 2 turns (QC): 2 Wheel 150 ft (QC): 2 Stair Training 1 Step (curb) (QC): 88 4 Steps (QC): 88 12 Steps (QC): 88 Balance Picking up an Object (QC): 88 ADL-Treatment Eating (QC): 6 Oral Hygiene (QC): 4 (SBA standing at sink) Shower/Bathe Self (QC): 4 (CGA at times in stance while in the shower.) Upper Body Dressing (QC): 5 Lower Body Dressing (QC): 4 (CGA. Pt. able to use dressing stick to don shorts over feet, and then CGA in stance to don over hips.) On/Off Footwear (QC): 3 (Pt. requires SBA to doff slipper socks, and min assist to don slip on shoes with AE.) Toileting Hygiene (QC): 4 (SBA to use urinal.) Assessment/Plan Assessment and Plan Assess & Plan/Chief Complaint Assessment: s/p left knee replacement 03/27/20 Dr Neville ISAAK on CPAP Obesity HTN HLP DM AF OAC maintained Post op fever Post op anemia BPH Plan: IRF protocol Monitor BM Urinary retention risk 03/31/20: Pain control Eliquis maintained chronic for AF CVA PPx and now for also DVT PPx Colace CPAP IS Check labs in am 04/01/20: Replace potassium Maintain bowel regimen Pain control 04/02/20: Start iron infusions after midline placed Pain control Bowel regimen Rehab protocol 04/03/20: Place mid line for iron infusions Continue bowel regimen Pain control Doing very well 04/04/20: Iron infusions 3 total before DC Pain control DC tomorrow (1) Status post left knee replacement (2) Postoperative anemia Status: Acute (3) Fever Status: Acute (4) T2DM (type 2 diabetes mellitus) Status: Chronic (5) BPH (benign prostatic hyperplasia) Status: Chronic (6) ISAAK (obstructive sleep apnea) Status: Chronic (7) HLD (hyperlipidemia) Status: Chronic (8) HTN (hypertension) Status: Chronic (9) GERD (gastroesophageal reflux disease) Status: Chronic (10) A-fib Status: Chronic (11) COPD (chronic obstructive pulmonary disease) Status: Chronic MAREN GUTIERREZ DO Apr 04, 2020 05:31
[2020-04-04 06:01] VITALS: BP 134/60
[2020-04-04] MEDS: inSUlin ASPART (NovoLOG) 1 UNIT/0.01 ML (CHARGE PER UNIT) SC SCH ×3 (06:37→17:24)
[2020-04-04] MEDS: MULTIVIT W/MINERALS TAB (THERAGRAN M) PO SCH (06:37)
[2020-04-04] MEDS: KCL 10 MEQ TAB (MICRO K) PO SCH (06:37)
[2020-04-04] MEDS: UMECLIDINIUM BROMIDE (INCRUSE ELLIPTA) 7'S IH SCH (07:15)
[2020-04-04] MEDS: HYDROCHLOROTHIAZIDE 25 MG (HCTZ) TAB PO SCH (09:08)
[2020-04-04] MEDS: TAMSULOSIN 0.4 MG (FLOMAX) CAP PO SCH ×2 (09:08→21:22)
[2020-04-04] MEDS: polyethylene glycoL POWDER 17 GM (MIRALAX) PACK PO SCH ×2 (09:08→20:50)
[2020-04-04] MEDS: amLODIPine 10 MG (NORVASC) TAB PO SCH (09:08)
[2020-04-04] MEDS: IRON SUCROSE 200 MG/10 ML (VENOFER) VIAL IV SCH (09:08)
[2020-04-04] MEDS: ROSUVASTATIN 5 MG (CRESTOR) TABLET PO SCH (09:08)
[2020-04-04] MEDS: meTOproloL SUCCINATE 50 MG (TOPROL XL) TAB PO SCH (09:09)
[2020-04-04] MEDS: FUROSEMIDE 40 MG (LASIX) TAB PO SCH (09:09)
[2020-04-04] MEDS: APIXABAN 5 MG (ELIQUIS) TABLET PO SCH ×2 (09:09→21:23)
[2020-04-04] MEDS: lisINopril 40 MG (PRINIVIL) TABLET PO SCH (09:09)
[2020-04-04] MEDS: PANTOPRAZOLE 40 MG (PROTONIX) TAB PO SCH (09:09)
[2020-04-04] MEDS: ASPIRIN E.C. 81 MG (ECOTRIN) TAB PO SCH (09:09)
[2020-04-04] MEDS: FINASTERIDE (PROSCAR) 5 MG TAB PO SCH (09:09)
[2020-04-04] MEDS: DOCUSATE SODIUM 100 MG (COLACE) CAP PO SCH ×2 (09:09→20:50)
[2020-04-04] MEDS: oxyCODONE/APAP 5/325MG (PERCOCET 5) TABLET PO PRN ×4 (09:10→21:23)
[2020-04-04] MEDS: SENNA W/DOCUSATE (SENOKOT S) TABLET PO SCH ×2 (09:10→20:50)
[2020-04-04] MEDS: FLUTICASONE NASAL SPRAY (FLONASE) 16 GM BTL NS SCH (09:18)
--- NOTE | 2020-04-04 10:53 | Physical Therapy Daily Note ---
PT Daily Note-Current Subjective Pt presents sitting upright in recliner. Pt agrees to PT. Pt reports less than 5/10 pain. Appearance Pt returns to recliner after PT treatment. Pt has access to tray, call button, all needs have been met and nurse is present in room. Mental Status Patient Orientation: Person, Place, Time, Eyes Open, Situation Transfers SCALE: Activities may be completed with or without assistive devices. 8-Jkfuczusoi-fwmhcze completes the activity by him/herself with no assistance from a helper. 5-Set-up or Clean-up Assistance-helper sets up or cleans up; patient completes activity. [place] assists only prior to or following the activity. 4-Supervision or Touching Assistance-helper provides verbal cues and/or touching/steadying and/or contact guard assistance as patient completes activity. Assistance may be provided throughout the activity or intermittently. 3-Partial/Moderate Assistance-helper does LESS THAN HALF the effort. [place] lifts, holds or supports trunk or limbs, but provides less than half the effort. 2-Substantial/Maximal Assistance-helper does MORE THAN HALF the effort. [place] lifts or holds trunk or limbs and provides more than half the effort. 0-Aiudyanqg-rbcrda does ALL the effort. Patient does none of the effort to compl ete the activity. Or, the assistance of 2 or more helpers is required for the patient to complete the activity. If activity was not attempted, code reason: 7-Patient Refused. 9-Not Applicable-not attempted and the patient did not perform the activity before the current illness, exacerbation or injury. 10-Not Attempted due to Environmental Limitations-(lack of equipment, weather restraints, etc.). 88-Not Attempted due to Medical Conditions or Safety Concerns. Sit to Stand (QC): 4 Chair/Yhz-ey-Nmcvg Xfer(QC): 4 Pt is improving his sit to stand from a lower surface. Pt cued on pushing up from armrests. Weight Bearing Right Lower Extremity: Right Full Weight Bearing Left Lower Extremity: Left Full Weight Bearing Gait Training Does the Patient Walk?: Yes Distance: 150'x2 Walk 10 feet (QC): 4 Walk 50 ft with 2 Turns(QC): 4 Walk 150 ft (QC): 4 Gait Assistive Device: FWW slow but steady ambulation, antalgic, decreased left knee flexion Exercises Standin way Ex=Flex, Abd, Ext (no abduction), Marching (6' x2) Standing Reps: 10 NuStep Minutes: 15 NuStep Workload: 6 Treatments Pt unable to lift L leg to level stool in front of him; instead therapist lifted leg in SLR hamstring stretch form, pt required leg to be relaxed after 30s Seated hamstring stretch; pt instructed to complete reach himself and hold for 30s once an hour Assessment Current Status: Fair Progress Pt requested increased resistance on Nustep. Pt struggled with completing standing exercises. Pt educated on benefits of stretching and PT. PT Research Asst Goals Research Asst Goals PT Research Asst Goals Time Frame: Apr 13, 2020 Roll Left & Right (QC): 4 Sit to Lying (QC): 4 Lying-Sitting on Side/Bed(QC): 4 Sit to Stand (QC): 6 Chair/Yck-cl-Mbhno Xfer(QC): 6 Toilet Transfer (QC): 6 Car Transfer (QC): 6 Does the Patient Walk: Yes Walk 10 feet (QC): 6 Walk 50ft with 2 Turns (QC): 6 Walk 150 ft (QC): 6 Walking 10ft on Uneven Surface: 6 1 Step (curb) (QC): 4 4 Steps (QC): 4 12 Steps (QC): 9 Picking up an Object (QC): 9 Wheel 50 feet with 2 turns (QC: 9 Wheel 150 feet: 9 PT Plan Problem List Problem List: Activity Tolerance, Functional Strength, Safety, Balance, Gait, Transfer, Bed Mobility, ROM Treatment/Plan Treatment Plan: Continue Plan of Care Treatment Plan: Bed Mobility, Concurrent Therapy, Education, Functional Activity [place], Functional Strength, Group Therapy, Gait, Safety, Therapeutic Exercise, Transfers Treatment Duration: Apr 13, 2020 Frequency: At least 5 of 7 days/Wk (IRF) Estimated Hrs Per Day: 1.5 hours per day Patient and/or Family Agrees t: Yes Safety Risks/Education Patient Education: Gait Training, Transfer Techniques, Correct Positioning, Safety Issues Teaching Recipient: Patient Teaching Methods: Demonstration, Discussion Response to Teaching: Reinforcement Needed Time/GCodes Time In: 1000 Time Out: 1100 Total Billed Treatment Time: 60 Total Billed Treatment 1 visit GT 20' EX 40' RICKEY SOUSA PT Apr 04, 2020 10:53
--- NOTE | 2020-04-04 14:32 | Physical Therapy Daily Note ---
PT Daily Note-Current Subjective Pt presents sitting in recliner. Pt agrees to PT. Pt reports 8/10 pain. Appearance After PT tx patient returns to recliner. Pt has access to tray, call button, and all needs have been met. Mental Status Patient Orientation: Person, Place, Time, Eyes Open, Situation Transfers SCALE: Activities may be completed with or without assistive devices. 5-Mcsduhawlk-otmaqmn completes the activity by him/herself with no assistance from a helper. 5-Set-up or Clean-up Assistance-helper sets up or cleans up; patient completes activity. [place] assists only prior to or following the activity. 4-Supervision or Touching Assistance-helper provides verbal cues and/or touching/steadying and/or contact guard assistance as patient completes activi ty. Assistance may be provided throughout the activity or intermittently. 3-Partial/Moderate Assistance-helper does LESS THAN HALF the effort. [place] lifts, holds or supports trunk or limbs, but provides less than half the effort. 2-Substantial/Maximal Assistance-helper does MORE THAN HALF the effort. [place] lifts or holds trunk or limbs and provides more than half the effort. 2-Sikmiypgr-yjfymz does ALL the effort. Patient does none of the effort to complete the activity. Or, the assistance of 2 or more helpers is required for the patient to complete the activity. If activity was not attempted, code reason: 7-Patient Refused. 9-Not Applicable-not attempted and the patient did not perform the activity before the current illness, exacerbation or injury. 10-Not Attempted due to Environmental Limitations-(lack of equipment, weather restraints, etc.). 88-Not Attempted due to Medical Conditions or Safety Concerns. Sit to Stand (QC): 4 Chair/Mca-zp-Mfkhx Xfer(QC): 4 Weight Bearing Right Lower Extremity: Right Full Weight Bearing Left Lower Extremity: Left Full Weight Bearing Gait Training Does the Patient Walk?: Yes Distance: 150' x2 Walk 10 feet (QC): 4 Walk 50 ft with 2 Turns(QC): 4 Walk 150 ft (QC): 4 Gait Assistive Device: FWW Patient ambulates slowly with limited ROM in L knee. Exercises Seated Therapy Exercises: Long arc quads, Hamstring Curls (theraband resistance) Seated Reps: 30 Standing: Side steps (6' x4) Treatments PROM Raised seat knee flexion stretch 2x30" Assessment Current Status: Good Progress Pt improving his quad and hamstring activation to extend and flex knee respectfully. PT [facility] Goals [facility] Goals PT Iron Cutter Goals Time Frame: Apr 13, 2020 Roll Left & Right (QC): 4 Sit to Lying (QC): 4 Lying-Sitting on Side/Bed(QC): 4 Sit to Stand (QC): 6 Chair/Uii-ui-Bphit Xfer(QC): 6 Toilet Transfer (QC): 6 Car Transfer (QC): 6 Does the Patient Walk: Yes Walk 10 feet (QC): 6 Walk 50ft with 2 Turns (QC): 6 Walk 150 ft (QC): 6 Walking 10ft on Uneven Surface: 6 1 Step (curb) (QC): 4 4 Steps (QC): 4 12 Steps (QC): 9 Picking up an Object (QC): 9 Wheel 50 feet with 2 turns (QC: 9 Wheel 150 feet: 9 PT Plan Problem List Problem List: Activity Tolerance, Functional Strength, Safety, Balance, Gait, Transfer, Bed Mobility, ROM Treatment/Plan Treatment Plan: Continue Plan of Care Treatment Plan: Bed Mobility, Concurrent Therapy, Education, Functional Ac tivity [place], Functional Strength, Group Therapy, Gait, Safety, Therapeutic Exercise, Transfers Treatment Duration: Apr 13, 2020 Frequency: At least 5 of 7 days/Wk (IRF) Estimated Hrs Per Day: 1.5 hours per day Patient and/or Family Agrees t: Yes Safety Risks/Education Patient Education: Gait Training, Transfer Techniques, Correct Positioning, Safety Issues Teaching Recipient: Patient Teaching Methods: Demonstration, Discussion Response to Teaching: Reinforcement Needed Time/GCodes Time In: 1400 Time Out: 1430 Total Billed Treatment Time: 30 Total Billed Treatment 1 visit EX 20' GT 10' RICKEY SOUSA PT Apr 04, 2020 14:32
--- NOTE | 2020-04-04 14:56 | Occupational Ther Daily Note ---
OT Current Status-Daily Note Subjective Pt. reports 8/10 pain in left knee. Nursing gives pt. pain medication. Appearance Pt. is up in chair. Agrees to shower. Mental Status/Objective Patient Orientation: Person, Place, Time, Situation ADL-Treatment Therapy Code Descriptions/Definitions Functional [place] Measure: 0=Not Assessed/NA 4=Minimal Assistance 1=Total Assistance 5=Supervision or Setup 2=Maximal Assistance 6=Modified [place] 3=Moderate Assistance 7=Complete IndependenceSCALE: Activities may be completed with or without assistive devices. 6-Mxodzmzryp-otybjwg completes the activity by him/herself with no assistance from a helper. 5-Set-up or Clean-up Assistance-helper sets up or cleans up; patient completes activity. [place] assists only prior to or following the activity. 4-Supervision or Touching Assistance-helper provides verbal cues and/or touching/steadying and/or contact guard assistance as patient completes activity. Assistance may be provided throughout the activity or intermittently. 3-Partial/Moderate Assistance-helper does LESS THAN HALF the effort. [place] lifts, holds or supports trunk or limbs, but provides less than half the effort. 2-Substantial/Maximal Assistance-helper does MORE THAN HALF the effort. [place] lifts or holds trunk or limbs and provides more than half the effort. 8-Tycgbopvf-yaqpba does ALL the effort. Patient does none of the effort to complete the activity. Or, the assistance of 2 or more helpers is required for the patient to complete the activity. If activity was not attempted, code reason: 7-Patient Refused. 9-Not Applicable-not attempted and the patient did not perform the activity before the current illness, exacerbation or injury. 10-Not Attempted due to Environmental Limitations-(lack of equipment, weather restraints, etc.). 88-Not Attempted due to Medical Conditions or Safety Concerns. Shower/Bathe Self (QC): 4 (SBA in shower. Pt. uses LH sponge for LE.) Upper Body Dressing (QC): 5 Lower Body Dressing (QC): 3 (Min assist to thread over left foot. Uses dressing stick to thread over right foot.) On/Off Footwear: 3 (SBA to doff slipper socks with dressing stick. Mod assist to don slip on shoes with dressing stick.) Education OT Patient Education: Correct positioning, Modified ADL techniques, Progress toward Goal/Update tx plan, Purpose of tx/functional activities, Reviewed precautions, Rehab process, Transfer techniques, Use of adapted equipment Teaching Recipient: Patient Teaching Methods: Demonstration, Discussion Response to Teaching: Verbalize Understanding, Return Demonstration OT Short Term Goals Short Term Goals Time Frame: Apr 08, 2020 Eatin Oral hygiene: 6 Toileting hygiene: 4 Shower/bathe self: 3 Upper body dressin Lower body dressin Putting on/taking off footwear: 4 OT Survey Methodologist Goals Survey Methodologist Goals Time Frame: Apr 15, 2020 Eating (QC): 6 Oral Hygiene (QC): 6 Toileting Hygiene (QC): 6 Shower/Bathe Self (QC): 4 Upper Body Dressing (QC): 6 Lower Body Dressing (QC): 6 On/Off Footwear (QC): 6 Additional Goals: 1-Demonstrate ADL Tasks, 2-Verbalize Understanding, 3- ImproveStrength/Ulcero 1=Demonstrate adherence to instructed precautions during ADL tasks. 2=Patient will verbalize/demonstrate understanding of assistive devices/modifica tions for ADL. 3=Patient will improve strength/tolerance for activity to enable patient to perform ADL's. OT Education/Plan Problem List/Assessment Assessment: Decreased Activ Tolerance, Impaired I ADL's, Impaired Self-Care Skills Discharge Recommendations Plan/Recommendations: Continue POC Therapy Discharge Recommendati: Home & Family, Post Acute OT Equpiment Recommendations-D/C: Hip Kit, Walker Bag or Basket Treatment Plan/Plan of Care Treatment,Training & Education: Yes Patient would benefit from OT for education, treatment and training to promote independence in ADL's, mobility, safety and/or upper extremity function for ADL's. Plan of Care: ADL Retraining, Functional Mobility, UE Funct Exercise/Act Treatment Duration: Apr 15, 2020 Frequency: At least 5 of 7 days/Wk (IRF) Estimated Hrs Per Day: 1.5 hours per day Agreement: Yes Rehab Potential: Good Time/GCodes Start Time: 08:30 Stop Time: 09:30 Total Time Billed (hr/min): 60 Billed Treatment Time 1, ADL x 4 NELSON MERRITT OT Apr 04, 2020 14:56
--- NOTE | 2020-04-04 14:59 | NUR ---
CM/SS DISCHARGE PLANNING C: Referral completed with [facility], agency confirms they will be able to open services timely. Orders are for PT only, patient did not agree to OT recommendation. DME: Patient's daughter has gotten 3 commodes for use in his home, two over toilets and one in the shower. Explained to patient we can only do an order for one, he realizes this is not a Medicare covered item and this will assist only to save him the cost of sales tax. Patient then stated not to go ahead with orders for the other smaller items (dressing stick and sock aid) because those are not big ticket prices. Forward commode order to [facility] in [place] once physician signs. Complete discharge planning tomorrow.
--- NOTE | 2020-04-04 15:09 | Occupational Ther Daily Note ---
OT Current Status-Daily Note Subjective Pt. reports 8/10 pain in left knee. Nursing gives pt. pain medication. Appearance Pt. up in chair. Agrees to work with OT. Mental Status/Objective Patient Orientation: Person, Place, Time, Situation ADL-Treatment Therapy Code Descriptions/Definitions Functional [place] Measure: 0=Not Assessed/NA 4=Minimal Assistance 1=Total Assistance 5=Supervision or Setup 2=Maximal Assistance 6=Modified [place] 3=Moderate Assistance 7=Complete IndependenceSCALE: Activities may be completed with or without assistive devices. 1-Sliflzmnft-vtnscvv completes the activity by him/herself with no assistance from a helper. 5-Set-up or Clean-up Assistance-helper sets up or cleans up; patient completes activity. [place] assists only prior to or following the activity. 4-Supervision or Touching Assistance-helper provides verbal cues and/or touching/steadying and/or contact guard assistance as patient completes activity. Assistance may be provided throughout the activity or intermittently. 3-Partial/Moderate Assistance-helper does LESS THAN HALF the effort. [place] lifts, holds or supports trunk or limbs, but provides less than half the effort. 2-Substantial/Maximal Assistance-helper does MORE THAN HALF the effort. [place] lifts or holds trunk or limbs and provides more than half the effort. 5-Fonzlrlpc-lyvqxc does ALL the effort. Patient does none of the effort to complete the activity. Or, the assistance of 2 or more helpers is required for the patient to complete the activity. If activity was not attempted, code reason: 7-Patient Refused. 9-Not Applicable-not attempted and the patient did not perform the activity before the current illness, exacerbation or injury. 10-Not Attempted due to Environmental Limitations-(lack of equipment, weather restraints, etc.). 88-Not Attempted due to Medical Conditions or Safety Concerns. Pt. transfers sit-stand with lift chair elevated to highest point. Transfers with SBA. Ambulates with SBA and walker to therapy gym. Pt. completes 5 minutes on arm pulleys for improved strength. Rested and then completed 6 bilateral UE exercises x 3 lb. dumbbells x 15 reps in all planes for improved strength overall. Rested after this and then stood with min assist, from chair with two pillows on it. Ambulated with walker back to room. Pt. up in chair with all needs met. Education OT Patient Education: Correct positioning, Exercise program, Modified ADL techniques, Progress toward Goal/Update tx plan, Purpose of tx/functional activities, Reviewed precautions, Rehab process, Transfer techniques Teaching Recipient: Patient Teaching Methods: Demonstration, Discussion Response to Teaching: Verbalize Understanding, Return Demonstration OT Short Term Goals Short Term Goals Time Frame: Apr 08, 2020 Eatin Oral hygiene: 6 Toileting hygiene: 4 Shower/bathe self: 3 Upper body dressin Lower body dressin Putting on/taking off footwear: 4 OT Residential Goals Residential Goals Time Frame: Apr 15, 2020 Eating (QC): 6 Oral Hygiene (QC): 6 Toileting Hygiene (QC): 6 Shower/Bathe Self (QC): 4 Upper Body Dressing (QC): 6 Lower Body Dressing (QC): 6 On/Off Footwear (QC): 6 Additional Goals: 1-Demonstrate ADL Tasks, 2-Verbalize Understanding, 3- ImproveStrength/[place] 1=Demonstrate adherence to instructed precautions during ADL tasks. 2=Patient will verbalize/demonstrate understanding of assistive devices/modifications for ADL. 3=Patient will improve strength/tolerance for activity to enable patient to perform ADL's. OT Education/Plan Problem List/Assessment Assessment: Decreased Activ Tolerance, Impaired I ADL's, Impaired Self-Care Skills Discharge Recommendations Plan/Recommendations: Continue POC Therapy Discharge Recommendati: Home & Family, Post Acute OT Equpiment Recommendations-D/C: Hip Kit Treatment Plan/Plan of Care Treatment,Training & Education: Yes Patient would benefit from OT for education, treatment and training to promote independence in ADL's, mobility, safety and/or upper extremity function for ADL's. Plan of Care: ADL Retraining, Functional Mobility, UE Funct Exercise/Act Treatment Duration: Apr 15, 2020 Frequency: At least 5 of 7 days/Wk (IRF) Estimated Hrs Per Day: 1.5 hours per day Agreement: Yes Rehab Potential: Good Time/GCodes Start Time: 13:00 Stop Time: 13:35 Total Time Billed (hr/min): 35 Billed Treatment Time 1, FA x 15minutes, Ex x 20minutes NELSON MERRITT OT Apr 04, 2020 15:09
--- NOTE | 2020-04-04 15:20 | Progress Note ---
Standard Progress Note Progress Notes/Assess & Plan Date Seen by a Provider: Apr 04, 2020 Time Seen by a Provider: 15:19 Progress/Assessment & Plan feeling better today LLE in CPM no calf tenderness Neg Nick's s/p LTKA doing well continue PT/OT Final Diagnosis no complaints LLE incision clean and dry . No calf tenderness s/p L TKA DC wednesday SHELLY CHÁVEZ MD Apr 04, 2020 15:20
--- NOTE | 2020-04-04 15:45 | Cardiology Progress Note ---
Cardiology SOAP Progress Note Subjective: No cardiac complaints. Objective: I&O/Vital Signs 04/04/20 04/04/20 06:01 07:15 Temp 37.0 Pulse 102 Resp 16 B/P (MAP) 134/60 (84) Pulse Ox 94 92 O2 Delivery NIV CPAP Room Air 04/04/20 00:00 Intake Total 1200 ml Output Total 1050 ml Balance 150 ml Weight (Pounds): 343 Weight (Ounces): 0.0 Weight (Calculated Kilograms): 155.992343 Constitutional: AAO x 3 Respiratory: chest is bilaterally symmetric, lungs clear to auscultation Cardiovascular: regular rate-rhythm, S1 and S2 Gastrointestional: soft, audible bowel sounds Extremities: normal range of motion, non-tender, normal inspection, no lower extremity edema bilateral Neurologic/Psychiatric: no motor/sensory deficits, alert, normal mood/affect, oriented x 3 Skin: normal color Results/Procedures: Labs Laboratory Tests 04/03/20 20:06: Glucometer 235H 04/04/20 05:40: Glucometer 123H 04/04/20 10:50: Glucometer 176H A/P: Assessment/Dx: Paroxysmal atrial fibrillation Hypertension Hyperlipidemia Peripheral edema Plan: Status post left total knee arthroplasty, degenerative joint disease, recovering slowly. Paroxysmal atrial fibrillation, restarted oral anticoagulation and Toprol and continue to monitor Hypertension, continue home medication, monitor blood pressure Hyperlipidemia, continue to monitor lipids Chronic venous stasis changes, chronic pedal edema, no change from baseline. Continue to monitor Diabetes mellitus, followed and managed by primary care physician continue to monitor COPD/obstructive sleep apnea uses C Pap as an outpatient, currently on oxygen Mild anemia, continue to monitor H&H Generalized weakness and debility, starting with physical therapy Thank you for your consultation. Please call me if you have any questions. Jorge Luis Izaguirre MD, FACP, FACC, FSCAI, FHRS, CCDS Interventional Cardiology Cardiac Electrophysiology Vascular Medicine and Endovascular Interventions Casey IZAGUIRRE MD Apr 04, 2020 15:45
[2020-04-04] MEDS: metFORMIN 500 MG (GLUCOPHAGE) TAB PO SCH ×2 (17:24→17:26)
[2020-04-04 17:25] VITALS: BP 132/60
[2020-04-04] MEDS: ALPRAZolam 0.25 MG (XANAX) TAB PO PRN (21:22)
[2020-04-04] MEDS: MELATONIN 3 MG TABLET PO PRN (21:22)
[2020-04-05 05:42] VITALS: BP 131/59
[2020-04-05] MEDS: inSUlin ASPART (NovoLOG) 1 UNIT/0.01 ML (CHARGE PER UNIT) SC SCH ×3 (06:36→17:13)
[2020-04-05] MEDS: KCL 10 MEQ TAB (MICRO K) PO SCH (06:36)
[2020-04-05] MEDS: MULTIVIT W/MINERALS TAB (THERAGRAN M) PO SCH (06:36)
[2020-04-05] MEDS: UMECLIDINIUM BROMIDE (INCRUSE ELLIPTA) 7'S IH SCH (07:28)
[2020-04-05] MEDS: SENNA W/DOCUSATE (SENOKOT S) TABLET PO SCH ×2 (07:57→19:53)
[2020-04-05] MEDS: ASPIRIN E.C. 81 MG (ECOTRIN) TAB PO SCH (07:57)
[2020-04-05] MEDS: TAMSULOSIN 0.4 MG (FLOMAX) CAP PO SCH ×2 (07:57→21:14)
[2020-04-05] MEDS: DOCUSATE SODIUM 100 MG (COLACE) CAP PO SCH ×2 (07:57→19:53)
[2020-04-05] MEDS: PIOGLITAZONE 30MG (ACTOS) TAB PO SCH (07:57)
[2020-04-05] MEDS: metFORMIN 500 MG (GLUCOPHAGE) TAB PO SCH ×2 (07:57→17:13)
[2020-04-05] MEDS: lisINopril 40 MG (PRINIVIL) TABLET PO SCH (07:57)
[2020-04-05] MEDS: PANTOPRAZOLE 40 MG (PROTONIX) TAB PO SCH (07:58)
[2020-04-05] MEDS: HYDROCHLOROTHIAZIDE 25 MG (HCTZ) TAB PO SCH (07:58)
[2020-04-05] MEDS: amLODIPine 10 MG (NORVASC) TAB PO SCH (07:58)
[2020-04-05] MEDS: APIXABAN 5 MG (ELIQUIS) TABLET PO SCH ×2 (07:58→21:14)
[2020-04-05] MEDS: FINASTERIDE (PROSCAR) 5 MG TAB PO SCH (07:58)
[2020-04-05] MEDS: meTOproloL SUCCINATE 50 MG (TOPROL XL) TAB PO SCH (07:58)
[2020-04-05] MEDS: ROSUVASTATIN 5 MG (CRESTOR) TABLET PO SCH (07:58)
[2020-04-05] MEDS: polyethylene glycoL POWDER 17 GM (MIRALAX) PACK PO SCH ×2 (07:58→19:53)
[2020-04-05] MEDS: FUROSEMIDE 40 MG (LASIX) TAB PO SCH (07:58)
[2020-04-05 08:03] VITALS: BP 163/72
[2020-04-05] MEDS: FLUTICASONE NASAL SPRAY (FLONASE) 16 GM BTL NS SCH (08:03)
[2020-04-05] MEDS: oxyCODONE/APAP 5/325MG (PERCOCET 5) TABLET PO PRN ×3 (08:17→21:14)
--- NOTE | 2020-04-05 09:58 | Physical Therapy Daily Note ---
PT Daily Note-Current Subjective Pt presents sitting upright in recliner. Pt agrees to PT. Pt reports pain in L ankle and knee. Appearance At conclusion of therapy pt returns to recliner in room; pt has polar pack placed around knee. Pt has access to tray, call button, all needs met, and visitor present in room. Mental Status Patient Orientation: Person, Place, Time, Eyes Open, Situation, Normal For Age Attachments: Polar Pack Transfers SCALE: Activities may be completed with or without assistive devices. 0-Wqrmqlisfn-jbmjcpm completes the activity by him/herself with no assistance from a helper. 5-Set-up or Clean-up Assistance-helper sets up or cleans up; patient completes activity. [place] assists only prior to or following the activity. 4-Supervision or Touching Assistance-helper provides verbal cues and/or touching/steadying and/or contact guard assistance as patient completes activity. Assistance may be provided throughout the activity or intermittently. 3-Partial/Moderate Assistance-helper does LESS THAN HALF the effort. [place] lifts, holds or supports trunk or limbs, but provides less than half the effort. 2-Substantial/Maximal Assistance-helper does MORE THAN HALF the effort. [place] lifts or holds trunk or limbs and provides more than half the effort. 7-Ozidpubjv-hvmvpu does ALL the effort. Patient does none of the effort to complete the activity. Or, the assistance of 2 or more helpers is required for the patient to complete the activity. If activity was not attempted, code reason: 7-Patient Refused. 9-Not Applicable-not attempted and the patient did not perform the activity before the current illness, exacerbation or injury. 10-Not Attempted due to Environmental Limitations-(lack of equipment, weather restraints, etc.). 88-Not Attempted due to Medical Conditions or Safety Concerns. Roll Left & Right (QC): 6 Sit to Lying (QC): 6 Lying to Sitting/Side of Bed(Q: 6 Sit to Stand (QC): 4 Chair/Add-tn-Fpxjt Xfer(QC): 4 Toilet Transfer (QC): 4 Car Transfer (QC): 3 Pt demonstrated independent bed mobility. PT supervises with SBA in sit to stand transfers. Pt required min assist to place surgical leg into vehicle to complete car transfer; pt voiced that he could have complete this in his personal truck t hat has more room and no ledge. Weight Bearing Right Lower Extremity: Right Full Weight Bearing Left Lower Extremity: Left Full Weight Bearing Gait Training Does the Patient Walk?: Yes Distance: 150'x2 Walk 10 feet (QC): 4 Walk 50 ft with 2 Turns(QC): 4 Walk 150 ft (QC): 4 Walking 10ft/uneven surface-QC: 4 Gait Persons Needed: 1 Gait Assistive Device: FWW Pt ambulates with antalgic gait; pt moves slowly and limits ROM of knee. Wheelchair Training Wheel 50 ft with 2 turns (QC): 9 Wheel 150 ft (QC): 9 Stair Training Stair Training: Handrails/: 2 handrails #of Steps: 4 1 Step (curb) (QC): 4 4 Steps (QC): 4 12 Steps (QC): 88 Stairs: Pattern: Step to Pt cued to ascend with good leg first and descend with surgical leg first. Pt cued to descend straight down and not sideways as long as he has B railings to help support himself. Balance Picking up an Object (QC): 4 Exercises Standing: Marching (fwd/bwd 6' x2) NuStep Minutes: 15 NuStep Workload: 6 Treatments Functional activities and LE strengthening/ROM Assessment Current Status: Good Progress Pt has shown improved in mobility. Pt demonstrated ability to complete functional activities but required supervision with most. PT Chcf Goals Chcf Goals PT Certified Orthotist Goals Time Frame: Apr 13, 2020 Roll Left & Right (QC): 4 Sit to Lying (QC): 4 Lying-Sitting on Side/Bed(QC): 4 Sit to Stand (QC): 6 Chair/Zrf-ly-Droxb Xfer(QC): 6 Toilet Transfer (QC): 6 Car Transfer (QC): 6 Does the Patient Walk: Yes Walk 10 feet (QC): 6 Walk 50ft with 2 Turns (QC): 6 Walk 150 ft (QC): 6 Walking 10ft on Uneven Surface: 6 1 Step (curb) (QC): 4 4 Steps (QC): 4 12 Steps (QC): 9 Picking up an Object (QC): 9 Wheel 50 feet with 2 turns (QC: 9 Wheel 150 feet: 9 PT Plan Problem List Problem List: Activity Tolerance, Functional Strength, Safety, Balance, Gait, Transfer, Bed Mobility, ROM Treatment/Plan Treatment Plan: Continue Plan of Care Treatment Plan: Bed Mobility, Concurrent Therapy, Education, Functional Activity [place], Functional Strength, Group Therapy, Gait, Safety, Therapeutic Exercise, Transfers Treatment Duration: Apr 13, 2020 Frequency: At least 5 of 7 days/Wk (IRF) Estimated Hrs Per Day: 1.5 hours per day Patient and/or Family Agrees t: Yes Safety Risks/Education Patient Education: Gait Training, Transfer Techniques, Steps, Reviewed Use of Ice, Correct Positioning, Safety Issues Teaching Recipient: Patient Teaching Methods: Demonstration, Discussion Response to Teaching: Reinforcement Needed Time/GCodes Time In: 0900 Time Out: 1000 Total Billed Treatment Time: 60 Total Billed Treatment 1 visit EX 15' FA 45' RICKEY SOUSA PT Apr 05, 2020 09:57
--- NOTE | 2020-04-05 10:00 | PM&R Progress Note ---
Subjective HPI/CC On Admission Date Seen by Provider: Apr 05, 2020 Time Seen by Provider: 10:00 Subjective/Events-last exam 04/05/20: Gout in right ankle will be treated with 1 dose of Solumedrol Getting around well DC tomorrow is planned Dizzy during therapy so ordered labs 04/04/20: Bowels moved today IV iron infusions will be today, tomorrow and Wednesday before discharge Oxycodone for pain Metformin and Actos restarted Uses his CPAP at night 04/03/20: Midline will be placed and IV iron started Pain is pretty well controlled Participating in therapy Wants to go home soon 04/02/20: Bowels are moving very well Oxycodone is handling the pain Iron is low so will initiate IV iron infusions Has a lot to do at home so wants to go home soon 04/01/20: Potassium 3.5 ordered potassium Doing well but having a hard time this morning Pain is okay but having difficulty performing in PT Pt appears to be frustrated Checked meds and labs Reviewed therapy notes Conferred with RN No fever now COugh noted but dry and chronic CPM used for a bit and tolerated well Eliquis BID tolerated and that is chronic Large loose stool yesterday so will maintain Colace IS ordered and compliant Up to chair now and it was easier compared to yesterday 3 people required for transfer yesterday and today much easier Cardiology Dr Haas checked on him Dr Neville checked on him Checked meds and labs Conferred with RN Reviewed therapy notes Review of Systems General: Fatigue, Malaise Objective Exam Vital Signs Vital Signs Date Time Temp Pulse Resp B/P (MAP) Pulse Ox O2 Delivery O2 Flow Rate FiO2 04/06/20 05:04 36.6 87 16 143/65 (91) 94 Room Air Capillary Refill : Less Than 3 SecondsLess Than 3 Seconds General Appearance: No Apparent Distress, WD/WN, Chronically ill, Obese HEENT: PERRL/EOMI, TMs Normal, Normal ENT Inspection, Pharynx Normal Neck: Full Range of Motion, Normal Inspection, Non Tender, Supple, Carotid Bruit Respiratory: Chest Non Tender, Lungs Clear, Normal Breath Sounds, No Accessory Muscle Use, No Respiratory Distress, Decreased Breath Sounds Cardiovascular: Regular Rate, Rhythm, No Gallop, No JVD, No Murmur, Normal Peripheral Pulses Gastrointestinal: Normal Bowel Sounds, No Organomegaly, No Pulsatile Mass, Non Tender, Soft Back: Normal Inspection, No CVA Tenderness, No Vertebral Tenderness Extremity: Normal Capillary Refill, Normal Inspection, Normal Range of Motion (except left leg decreased ROM), Non Tender, No Calf Tenderness, Pedal Edema (trace) Neurologic/Psychiatric: Alert, Oriented x3, No Motor/Sensory Deficits, Normal Mood/Affect, nutritionists II-XII Norm as Tested, Abnormal Gait Skin: Normal Color, Warm/Dry Lymphatic: No Adenopathy Results/Procedures Lab Laboratory Tests 04/05/20 12:55 Patient resulted labs reviewed. FIM Transfers Therapy Code Descriptions/Definitions Functional [place] Measure: 0=Not Assessed/NA 4=Minimal Assistance 1=Total Assistance 5=Supervision or Setup 2=Maximal Assistance 6=Modified [place] 3=Moderate Assistance 7=Complete IndependenceSCALE: Activities may be completed with or without assistive devices. 3-Sgqrjhrsvz-vqweyry completes the activity by him/herself with no assistance from a helper. 5-Set-up or Clean-up Assistance-helper sets up or cleans up; patient completes activity. [place] assists only prior to or following the activity. 4-Supervision or Touching Assistance-helper provides verbal cues and/or touching/steadying and/or contact guard assistance as patient completes activity. Assistance may be provided throughout the activity or intermittently. 3-Partial/Moderate Assistance-helper does LESS THAN HALF the effort. [place] lifts, holds or supports trunk or limbs, but provides less than half the effort. 2-Substantial/Maximal Assistance-helper does MORE THAN HALF the effort. [place] lifts or holds trunk or limbs and provides more than half the effort. 5-Vzofabjvn-ncbegh does ALL the effort. Patient does none of the effort to complete the activity. Or, the assistance of 2 or more helpers is required for the patient to complete the activity. If activity was not attempted, code reason: 7-Patient Refused. 9-Not Applicable-not attempted and the patient did not perform the activity before the current illness, exacerbation or injury. 10-Not Attempted due to Environmental Limitations-(lack of equipment, weather restraints, etc.). 88-Not Attempted due to Medical Conditions or Safety Concerns. Roll Left to Right (QC): 6 Sit to Lying (QC): 4 Sit to Stand (QC): 4 Chair/Eyr-fi-Kkfmb Xfer(QC): 4 Car Transfer (QC): 88 Gait Training Does the Patient Walk?: Yes Distance: 150' x2 Walk 10 feet (QC): 4 Walk 50 ft with 2 Turns(QC): 4 Walk 150 ft (QC): 4 Walking 10ft/uneven surface-QC: 88 Gait Persons Needed: 1 Gait Assistive Device: FWW Wheelchair Training Does the Pt Use a Wheelchair?: No Wheel 50 ft with 2 turns (QC): 2 Wheel 150 ft (QC): 2 Stair Training 1 Step (curb) (QC): 88 4 Steps (QC): 88 12 Steps (QC): 88 Balance Picking up an Object (QC): 88 ADL-Treatment Eating (QC): 6 Oral Hygiene (QC): 4 (SBA standing at sink) Shower/Bathe Self (QC): 4 (SBA in shower. Pt. uses LH sponge for LE.) Upper Body Dressing (QC): 5 Lower Body Dressing (QC): 3 (Min assist to thread over left foot. Uses dressing stick to thread over right foot.) On/Off Footwear (QC): 3 (SBA to doff slipper socks with dressing stick. Mod assist to don slip on shoes with dressing stick.) Toileting Hygiene (QC): 4 (SBA to use urinal.) Assessment/Plan Assessment and Plan Assess & Plan/Chief Complaint Assessment: s/p left knee replacement 03/27/20 Dr Neville ISAAK on CPAP Obesity HTN HLP DM AF OAC maintained Post op fever Post op anemia BPH Plan: IRF protocol Monitor BM Urinary retention risk 03/31/20: Pain control Eliquis maintained chronic for AF CVA PPx and now for also DVT PPx Colace CPAP IS Check labs in am 04/01/20: Replace potassium Maintain bowel regimen Pain control 04/02/20: Start iron infusions after midline placed Pain control Bowel regimen Rehab protocol 04/03/20: Place mid line for iron infusions Continue bowel regimen Pain control Doing very well 04/04/20: Iron infusions 3 total before DC Pain control DC tomorrow 04/05/20: DC tomorrow Gout treatment (1) Status post left knee replacement (2) Postoperative anemia Status: Acute (3) Fever Status: Acute (4) T2DM (type 2 diabetes mellitus) Status: Chronic (5) BPH (benign prostatic hyperplasia) Status: Chronic (6) ISAAK (obstructive sleep apnea) Status: Chronic (7) HLD (hyperlipidemia) Status: Chronic (8) HTN (hypertension) Status: Chronic (9) GERD (gastroesophageal reflux disease) Status: Chronic (10) A-fib Status: Chronic (11) COPD (chronic obstructive pulmonary disease) Status: Chronic MAREN GUTIERREZ DO Apr 05, 2020 10:00
[2020-04-05] MEDS: IRON SUCROSE 200 MG/10 ML (VENOFER) VIAL IV SCH (10:02)
--- NOTE | 2020-04-05 10:36 | Occupational Ther Daily Note ---
OT Current Status-Daily Note Subjective Pt in recliner upon entry. Alert/ oriented. Pt agrees to tx, stating desire for showering. Pt states 6/10 pain, then post-tx states 7/10, nursing is aware and provides medication. Mental Status/Objective Patient Orientation: Normal For Age ADL-Treatment Therapy Code Descriptions/Definitions Functional [place] Measure: 0=Not Assessed/NA 4=Minimal Assistance 1=Total Assistance 5=Supervision or Setup 2=Maximal Assistance 6=Modified [place] 3=Moderate Assistance 7=Complete IndependenceSCALE: Activities may be completed with or without assistive devices. 8-Rxgnjdmjxs-mfjojgi completes the activity by him/herself with no assistance from a helper. 5-Set-up or Clean-up Assistance-helper sets up or cleans up; patient completes activity. [place] assists only prior to or following the activity. 4-Supervision or Touching Assistance-helper provides verbal cues and/or touching/steadying and/or contact guard assistance as patient completes activity. Assistance may be provided throughout the activity or intermittently. 3-Partial/Moderate Assistance-helper does LESS THAN HALF the effort. [place] lifts, holds or supports trunk or limbs, but provides less than half the effort. 2-Substantial/Maximal Assistance-helper does MORE THAN HALF the effort. [place] lifts or holds trunk or limbs and provides more than half the effort. 7-Teybzrvcp-pmuejx does ALL the effort. Patient does none of the effort to complete the activity. Or, the assistance of 2 or more helpers is required for the patient to complete the activity. If activity was not attempted, code reason: 7-Patient Refused. 9-Not Applicable-not attempted and the patient did not perform the activity before the current illness, exacerbation or injury. 10-Not Attempted due to Environmental Limitations-(lack of equipment, weather restraints, etc.). 88-Not Attempted due to Medical Conditions or Safety Concerns. Eating (QC): 6 Oral Hygiene (QC): 7 Bathing Location: L Arm, R Arm, L Upper Leg, R Upper Leg, L Lower Leg (including foot), R Lower Leg (including foot), Chest, Abdomen, Buttocks, Perineal Area Shower/Bathe Self (QC): 4 ([place] [facility] [place], pt completes in sit, able to reach all areas with LHS.) Upper Body Dressing (QC): 5 (s/u) Lower Body Dressing (QC): 4 (SBA- pt able to complete with minimal cues for use of affected leg threading first, pt completes without AE.) On/Off Footwear: 3 (Pt denies use of socks, desires shoe donning. Pt able to doff socks with AE, pt dons shoes with min A (L foot assist) ) Toileting Hygiene (QC): 4 (SBA in shower.) Toilet Transfer (QC): 4 (SBA to BSC in shower. Good safety/ good pace. Use of walker ) Other Treatment [id number] (55) Pt completes sit to stands with use of lift chair to stance. Pt states 6/10 pain, able to ambulate to shower. Pt completes showering/ dressing as outlined above and returns to recliner. Pt states pain in R ankle, palpated with noted edema posterior to malleoli. Pt states it feels like start-up of gout. Pt requests to sit during exercises until end when pt stands at walker level ~30 sec prior to request to sit. Pt completes UE theraband ex in sit/ stance to address functional use of UE during ADL/ functional activities. Pt denies up-grading activities through stance/ ambulation, desiring to stay in room. Pt completes reps in all planes, focusing on major mm groups with 20 reps bilaterally. End of session, pt states, "I'm giving in, I can't right now." Pt denies continuation of exercises in sitting position last 5 min of treatment. Pt educated that we will continue these 5 minutes next treatment, pt states he does not like having OT/ PT scheduled back to back. Pt educated on OT's ability to come in prior to lunch to allow pt break between next session. Pt agrees. Education OT Patient Education: Correct positioning, Exercise program, Home exercise program, Modified ADL techniques, Progress toward Goal/Update tx plan, Purpose of tx/functional activities, Safety issues Teaching Recipient: Patient Teaching Methods: Demonstration, Discussion Response to Teaching: Verbalize Understanding, Return Demonstration OT Short Term Goals Short Term Goals Time Frame: Apr 08, 2020 Eatin Oral hygiene: 6 Toileting hygiene: 4 Shower/bathe self: 3 Upper body dressin Lower body dressin Putting on/taking off footwear: 4 OT Kennel Manager Dog Track Goals Kennel Manager Dog Track Goals Time Frame: Apr 15, 2020 Eating (QC): 6 Oral Hygiene (QC): 6 Toileting Hygiene (QC): 6 Shower/Bathe Self (QC): 4 Upper Body Dressing (QC): 6 Lower Body Dressing (QC): 6 On/Off Footwear (QC): 6 Additional Goals: 1-Demonstrate ADL Tasks, 2-Verbalize Understanding, 3- ImproveStrength/[place] 1=Demonstrate adherence to instructed precautions during ADL tasks. 2=Patient will verbalize/demonstrate understanding of assistive devices/modifications for ADL. 3=Patient will improve strength/tolerance for activity to enable patient to perform ADL's. OT Education/Plan Problem List/Assessment Assessment: Decreased Activ Tolerance, Decreased UE Strength, Dependent Transfe rs, Edema, Impaired Funct Balance, Impaired I ADL's, Impaired Self-Care Skills Discharge Recommendations Plan/Recommendations: Continue POC Therapy Discharge Recommendati: Home & Family Equpiment Recommendations-D/C: Bedside Commode, Hip Kit Treatment Plan/Plan of Care Treatment,Training & Education: Yes Patient would benefit from OT for education, treatment and training to promote independence in ADL's, mobility, safety and/or upper extremity function for ADL's. Plan of Care: ADL Retraining, Functional Mobility, UE Funct Exercise/Act Treatment Duration: Apr 15, 2020 Frequency: At least 5 of 7 days/Wk (IRF) Estimated Hrs Per Day: 1.5 hours per day Agreement: Yes Rehab Potential: Good Time/GCodes Start Time: 08:00 Stop Time: 08:55 (1200) Total Time Billed (hr/min): 55 Billed Treatment Time [id number]: 1, ADL 2 (30) EX 2 (25)= 55 FRITZ AGUILAR OTR Apr 05, 2020 10:36
--- NOTE | 2020-04-05 11:29 | Physical Therapy Daily Note ---
PT Daily Note-Current Subjective Pt presents sitting upright in recliner. Pt agrees to PT. Pt reports pain in L knee and ankle. Pt reports feeling dizzy during standing exercises. Appearance At conclusion of PT treatment pt returns to recliner where he has access to tray, call button, and all needs have been met. Mental Status Patient Orientation: Person, Place, Time, Eyes Open, Situation Transfers SCALE: Activities may be completed with or without assistive devices. 1-Cseqtpjgfb-ovtlobp completes the activity by him/herself with no assistance from a helper. 5-Set-up or Clean-up Assistance-helper sets up or cleans up; patient completes a ctivity. [place] assists only prior to or following the activity. 4-Supervision or Touching Assistance-helper provides verbal cues and/or touching/steadying and/or contact guard assistance as patient completes activity. Assistance may be provided throughout the activity or intermittently. 3-Partial/Moderate Assistance-helper does LESS THAN HALF the effort. [place] lifts, holds or supports trunk or limbs, but provides less than half the effort. 2-Substantial/Maximal Assistance-helper does MORE THAN HALF the effort. [place] lifts or holds trunk or limbs and provides more than half the effort. 8-Gsnotgtrd-wpvabu does ALL the effort. Patient does none of the effort to complete the activity. Or, the assistance of 2 or more helpers is required for the patient to complete the activity. If activity was not attempted, code reason: 7-Patient Refused. 9-Not Applicable-not attempted and the patient did not perform the activity before the current illness, exacerbation or injury. 10-Not Attempted due to Environmental Limitations-(lack of equipment, weather restraints, etc.). 88-Not Attempted due to Medical Conditions or Safety Concerns. Sit to Stand (QC): 3 Chair/Vwz-cr-Ksxoy Xfer(QC): 4 Pt demonstrated difficulty standing from standard chair height and required min assistance. Weight Bearing Right Lower Extremity: Right Full Weight Bearing Left Lower Extremity: Left Full Weight Bearing Gait Training Does the Patient Walk?: Yes Distance: 250', 150' Walk 10 feet (QC): 4 Walk 50 ft with 2 Turns(QC): 4 Walk 150 ft (QC): 4 Gait Assistive Device: FWW Pt demonstrated step through pattern with FWW. Pt walked 250' with stand by assist; after feeling dizzy pt was still able to walk 150' to return to room but CGA was used as a precautionary. Exercises Standing hip flexion Lx10 Rx6, this is when patient felt dizzy and sat down. Treatments Gait training Assessment Current Status: Good Progress Pt reports feeling dizzy while completing standing exercises; pt was instructed to sit down. When dizzy feeling increased in sitting the nurse was notified and vitals were taken. Pt rested in chair; when dizziness decreased pt was able to ambulate back to room. After dizziness and when sitting down patient's O2 was 96%, HR was 105bpm, BP was 136/60. PT Prison Goals Clinical Nurse Leader Goals PT Clinical Nurse Leader Goals Time Frame: Apr 13, 2020 Roll Left & Right (QC): 4 Sit to Lying (QC): 4 Lying-Sitting on Side/Bed(QC): 4 Sit to Stand (QC): 6 Chair/Ecz-wz-Ifpid Xfer(QC): 6 Toilet Transfer (QC): 6 Car Transfer (QC): 6 Does the Patient Walk: Yes Walk 10 feet (QC): 6 Walk 50ft with 2 Turns (QC): 6 Walk 150 ft (QC): 6 Walking 10ft on Uneven Surface: 6 1 Step (curb) (QC): 4 4 Steps (QC): 4 12 Steps (QC): 9 Picking up an Object (QC): 9 Wheel 50 feet with 2 turns (QC: 9 Wheel 150 feet: 9 PT Plan Problem List Problem List: Activity Tolerance, Functional Strength, Safety, Balance, Gait, Transfer, Bed Mobility, ROM Treatment/Plan Treatment Plan: Continue Plan of Care Treatment Plan: Bed Mobility, Concurrent Therapy, Education, Functional Activity [place], Functional Strength, Group Therapy, Gait, Safety, Therapeutic Exercise, Transfers Treatment Duration: Apr 13, 2020 Frequency: At least 5 of 7 days/Wk (IRF) Estimated Hrs Per Day: 1.5 hours per day Patient and/or Family Agrees t: Yes Safety Risks/Education Patient Education: Gait Training, Transfer Techniques, Correct Positioning, Safety Issues Teaching Recipient: Patient Teaching Methods: Demonstration, Discussion Response to Teaching: Reinforcement Needed Time/GCodes Time In: 1100 Time Out: 1130 Total Billed Treatment Time: 30 Total Billed Treatment 1 visit GT 15' FA 15' RICKEY SOUSA PT Apr 05, 2020 11:29
[2020-04-05] MEDS ORDERED: methylPREDNISolone 40 MG/ML (Solu-MEDROL) VIAL IV NR (12:00)
[2020-04-05] MEDS: ALPRAZolam 0.25 MG (XANAX) TAB PO PRN ×2 (12:08→21:14)
--- NOTE | 2020-04-05 13:07 | Occ Therapy Progress Note ---
Therapy Progress Note Per nursing, DO tells nursing pt plans to refuse OT this pm. DO aware of refusal prior to initiation of tx. Upon entry, pt in chair. Pt states he is feeling fine, up and eating. Pt states he would like to refuse OT services as he does not need them anymore. Pt is educated that pt's QC's were gathered this am and pt appears safe with ADLs. However, OT addresses that pt could benefit from increased UE movement/ ambulation tasks as he will be completing at home. Pt s tates, "I'll pass." No OT tx this pm. FRITZ AGUILAR OTR Apr 05, 2020 13:07
[2020-04-05 13:11] LABS: BASOPHILS # (AUTO) 0.1 10^3/uL (0.0-0.1); BASOPHILS % (AUTO) 1 % (0-10); EOSINOPHILS # (AUTO) 0.1 10^3/uL (0.0-0.3); EOSINOPHILS % (AUTO) 1 % (0-10); HEMATOCRIT 31 % (40-54); HEMOGLOBIN 9.6 g/dL (13.3-17.7); LYMPHOCYTES # (AUTO) 1.2 10^3/uL (1.0-4.0); LYMPHOCYTES % (AUTO) 11 % (12-44); MEAN CORPUSCULAR HEMOGLOBIN 25 pg (25-34); MEAN CORPUSCULAR HGB CONC 31 g/dL (32-36); MEAN CORPUSCULAR VOLUME 82 fL (80-99); MEAN PLATELET VOLUME 10.3 fL (9.0-12.2); MONOCYTES # (AUTO) 0.7 10^3/uL (0.0-1.0); MONOCYTES % (AUTO) 7 % (0-12); NEUTROPHILS # (AUTO) 8.6 10^3/uL (1.8-7.8); NEUTROPHILS % (AUTO) 80 % (42-75); PLATELET COUNT 511 10^3/uL (130-400); WHITE BLOOD COUNT 10.7 10^3/uL (4.3-11.0)
--- NOTE | 2020-04-05 13:21 | NUR ---
CM/SS DISCHARGE Patient will discharge home tomorrow as planned. IMM2 presented, reviewed, signed charted. No intention to appeal. HHC: Confirmed with [facility] they are prepared to open services tomorrow. Patient is to contact them once home, contact number provided. DME: Faxed order for commode to [employer] so that patient's sales tax would be forgiven. Patient's SO here today, no questions or concerns from either about discharge arrangements.
[2020-04-05 13:32] LABS: ALBUMIN 3.5 GM/DL (3.2-4.5); BILIRUBIN,TOTAL 1.7 MG/DL (0.1-1.0); CALCIUM 9.1 MG/DL (8.5-10.1); CREATININE SERUM 1.21 MG/DL (0.60-1.30); POTASSIUM 3.7 MMOL/L (3.6-5.0); TOTAL PROTEIN 7.2 GM/DL (6.4-8.2)
--- NOTE | 2020-04-05 14:32 | NUR ---
DR. GUTIERREZ REVIEWED LAB RESULTS. NO NEW ORDERS REC'D.
--- NOTE | 2020-04-05 15:13 | Cardiology Progress Note ---
Cardiology SOAP Progress Note Subjective: No cardiac complaints. Objective: I&O/Vital Signs 04/05/20 04/05/20 04/05/20 04/05/20 05:42 07:28 08:03 09:30 Temp 36.6 Pulse 95 103 Resp 20 B/P (MAP) 131/59 (83) 163/72 (102) Pulse Ox 95 92 O2 Delivery NIV CPAP Room Air Room Air 04/05/20 00:00 Intake Total 980 ml Output Total 950 ml Balance 30 ml Weight (Pounds): 343 Weight (Ounces): 0.0 Weight (Calculated Kilograms): 155.290020 Constitutional: AAO x 3 Respiratory: chest is bilaterally symmetric, lungs clear to auscultation Cardiovascular: regular rate-rhythm, S1 and S2 Gastrointestional: soft, audible bowel sounds Extremities: normal range of motion, non-tender, normal inspection, no lower extremity edema bilateral Neurologic/Psychiatric: no motor/sensory deficits, alert, normal mood/affect, oriented x 3 Skin: normal color Results/Procedures: Labs Laboratory Tests 04/04/20 16:12: Glucometer 153H 04/04/20 21:21: Glucometer 165H 04/05/20 05:28: Glucometer 90 04/05/20 11:19: Glucometer 145H 04/05/20 12:55: White Blood Count 10.7, Red Blood Count 3.79L, Hemoglobin 9.6L, Hematocrit 31L, Mean Corpuscular Volume 82, Mean Corpuscular Hemoglobin 25, Mean Corpuscular Hemoglobin Concent 31L, Red Cell Distribution Width 15.3H, Platelet Count 511H, Mean Platelet Volume 10.3, Immature Granulocyte % (Auto) 1, Neutrophils (%) (Auto) 80H, Lymphocytes (%) (Auto) 11L, Monocytes (%) (Auto) 7, Eosinophils (%) (Auto) 1, Basophils (%) (Auto) 1, Neutrophils # (Auto) 8.6H, Lymphocytes # (A uto) 1.2, Monocytes # (Auto) 0.7, Eosinophils # (Auto) 0.1, Basophils # (Auto) 0.1, Immature Granulocyte # (Auto) 0.1, Sodium Level 135, Potassium Level 3.7, Chloride Level 94L, Carbon Dioxide Level 28, Anion Gap 13, Blood Urea Nitrogen 22H, Creatinine 1.21, Estimat Glomerular Filtration Rate 59, BUN/Creatinine Ratio 18, Glucose Level 139H, Calcium Level 9.1, Corrected Calcium 9.5, Total Bilirubin 1.7H, Aspartate Amino Transf (AST/SGOT) 42H, Alanine Aminotransferase (ALT/SGPT) 36, Alkaline Phosphatase 71, Total Protein 7.2, Albumin 3.5 A/P: Assessment/Dx: Paroxysmal atrial fibrillation Hypertension Hyperlipidemia Peripheral edema Plan: Status post left total knee arthroplasty, degenerative joint disease, recovering slowly. Paroxysmal atrial fibrillation, restarted oral anticoagulation and Toprol and continue to monitor Hypertension, continue home medication, monitor blood pressure Hyperlipidemia, continue to monitor lipids Chronic venous stasis changes, chronic pedal edema, no change from baseline. Continue to monitor Diabetes mellitus, followed and managed by primary care physician continue to mo nitor COPD/obstructive sleep apnea uses C Pap as an outpatient, currently on oxygen Mild anemia, continue to monitor H&H Generalized weakness and debility, starting with physical therapy Thank you for your consultation. Please call me if you have any questions. Jorge Luis Izaguirre MD, FACP, FACC, FSCAI, FHRS, CCDS Interventional Cardiology Cardiac Electrophysiology Vascular Medicine and Endovascular Interventions Casey IZAGUIRRE MD Apr 05, 2020 15:13
[2020-04-05 16:06] VITALS: BP 141/63
[2020-04-05] MEDS: MELATONIN 3 MG TABLET PO PRN (21:14)
[2020-04-06 05:04] VITALS: BP 143/65
[2020-04-06] MEDS: inSUlin ASPART (NovoLOG) 1 UNIT/0.01 ML (CHARGE PER UNIT) SC SCH (06:14)
[2020-04-06] MEDS: MULTIVIT W/MINERALS TAB (THERAGRAN M) PO SCH (06:14)
[2020-04-06] MEDS: KCL 10 MEQ TAB (MICRO K) PO SCH (06:14)
[2020-04-06] MEDS ORDERED: ASPI-1238 PO (06:22)
[2020-04-06] MEDS ORDERED: METO50TA7 PO (06:22)
[2020-04-06] MEDS ORDERED: ALPR.25T PO (06:22)
[2020-04-06] MEDS ORDERED: OXYC1TAB87 PO (06:22)
[2020-04-06] MEDS ORDERED: SENN-20 PO (06:22)
--- NOTE | 2020-04-06 06:24 | D/C HH Face to Face Order ---
D/C Face to Face Orders Reconcile Patient Problems Problems Reviewed?: Yes Instructions for Patient [facility] Patient Instructions/FollowUp: Dr Francois in [address] Neville as scheduled Physician to follow Patient: Priscila Discharge Diet for Home: ADA Diet Patient Problems: Knee replacement DM AF Goals for Patient: [place] Patient Data-Allergies,Ht & Wt Patient Allergies: Coded Allergies: No Known Drug Allergies (Unverified , 03/27/20) Height (Feet): 6 Height (Inches): 1.00 Weight (Pounds): 343 Weight (Ounces): 0.0 Home Health Need/Face to Face Date of Face to Face: Apr 06, 2020 Clinical Findings: Generalized weakness and fatigue, Muscle weakness, Pain with ambulation, Unsteady gait I have seen Pt [id number]: Yes Discharged To: Home Diagnosis/Conditions: Knee replacement DM AF Patient is Homebound due to: [place] fall risk due to instabilty, Muscle weakness, Pain w/ambulation Homebound Status Due to the above stated illness, injury or surgical procedure (medical condition or diagnosis) and associated clinical findings, the patient is homebound because of his/her inability to leave home except with aid of a supportive device and/or person AND leaving the home requires a considerable and taxing effort or is medically contraindicated. Pt req the following assistanc: Walker Home Health Nursing Orders Home Health Services Order: Physical Therapy-Evaluate & Treat Home Health Infusion Therapy Line Start Date: Apr 03, 2020 Certify Stmt I certify that this patient is under my care and that I, a nurse practitioner or a physician; a railway yard assistant working with me, had a face to face encounter that - meets the physician face to face encounter requirements with this patient as dated. MAREN GUTIERREZ DO Apr 06, 2020 06:24
--- NOTE | 2020-04-06 06:31 | Discharge Summary ---
Diagnosis/Chief Complaint Date of Admission Mar 30, 2020 at 12:05 Date of Discharge Discharge Date: Apr 06, 2020 Discharge Diagnosis Assessment: s/p left knee replacement 03/27/20 Dr Neville ISAAK on CPAP Obesity HTN HLP DM AF OAC maintained Post op fever Post op anemia BPH Plan: IRF protocol Monitor BM Urinary retention risk 03/31/20: Pain control Eliquis maintained chronic for AF CVA PPx and now for also DVT PPx Colace CPAP IS Check labs in am 04/01/20: Replace potassium Maintain bowel regimen Pain control 04/02/20: Start iron infusions after midline placed Pain control Bowel regimen Rehab protocol 04/03/20: Place mid line for iron infusions Continue bowel regimen Pain control Doing very well 04/04/20: Iron infusions 3 total before DC Pain control DC tomorrow 04/05/20: DC tomorrow Gout treatment (1) Status post left knee replacement (2) Postoperative anemia Status: Acute (3) Fever Status: Acute (4) T2DM (type 2 diabetes mellitus) Status: Chronic (5) BPH (benign prostatic hyperplasia) Status: Chronic (6) ISAAK (obstructive sleep apnea) Status: Chronic (7) HLD (hyperlipidemia) Status: Chronic (8) HTN (hypertension) Status: Chronic (9) GERD (gastroesophageal reflux disease) Status: Chronic (10) A-fib Status: Chronic (11) COPD (chronic obstructive pulmonary disease) Status: Chronic Discharge Summary Discharge Physical Examination Allergies: Coded Allergies: No Known Drug Allergies (Unverified , 03/27/20) Vitals & I&Os Vital Signs Date Time Temp Pulse Resp B/P (MAP) Pulse Ox O2 Delivery O2 Flow Rate FiO2 04/06/20 12:26 36.6 84 16 137/68 94 Room Air General Appearance: Alert, Oriented X3, Cooperative Respiratory: Clear to Auscultation Cardiovascular: Regular Rate Neuro: Normal Gait, Normal Speech, Strength at 5/5 X4 Ext Psych/Mental Status: Mental Status NL Hospital Course Was the Problem List Reviewed?: Yes Uneventful course in IRF after transferring from 4th floor after left knee replacement uncomplicated by Dr Neville. Patient had no issues during stay, bowels returned to normal with laxative use. Pain was controlled well and home meds restarted. Overall he was able to participate in all therapies and was able to navigate walking with walker while using CPAP every night. Patient was deemed stable to DC. Labs (last 24 hrs) Laboratory Tests 03/30/20 15:29: Glucometer 146H 03/30/20 21:36: Glucometer 181H 03/31/20 05:39: Glucometer 108 03/31/20 10:33: Glucometer 210H 03/31/20 15:34: Glucometer 193H 03/31/20 20:11: Glucometer 213H 04/01/20 05:21: White Blood Count 7.8, Red Blood Count 3.67L, Hemoglobin 9.5L, Hematocrit 29L, Mean Corpuscular Volume 80, Mean Corpuscular Hemoglobin 26, Mean Corpuscular Hemoglobin Concent 32, Red Cell Distribution Width 15.2H, Platelet Count 276, Mean Platelet Volume 11.7H, Neutrophils (%) (Auto) 71, Lymphocytes (%) (Auto) 16, Monocytes (%) (Auto) 10, Eosinophils (%) (Auto) 3, Basophils (%) (Auto) 0, Neutrophils # (Auto) 5.5, Lymphocytes # (Auto) 1.2, Monocytes # (Auto) 0.8, Eosinophils # (Auto) 0.2, Basophils # (Auto) 0.0, Sodium Level 135, Potassium Level 3.5L, Chloride Level 99, Carbon Dioxide Level 23, Anion Gap 13, Blood Urea Nitrogen 21H, Creatinine 0.98, Estimat Glomerular Filtration Rate > 60, BUN/Creatinine Ratio 21, Glucose Level 150H, Calcium Level 8.1L, Corrected Calcium 8.7, Iron Level 27L, Total Bilirubin 1.4H, Aspartate Amino Transf (AST/SGOT) 35H, Alanine Aminotransferase (ALT/SGPT) 37, Alkaline Phosphatase 63, Total Protein 6.7, Albumin 3.2 04/01/20 11:23: Glucometer 168H 04/01/20 15:48: Glucometer 133H 04/01/20 20:14: Glucometer 280H 04/02/20 05:50: Glucometer 168H 04/02/20 11:23: Glucometer 190H 04/02/20 15:41: Glucometer 193H 04/02/20 20:21: Glucometer 219H 04/03/20 06:54: Glucometer 165H 04/03/20 11:55: Glucometer 149H 04/03/20 15:29: Glucometer 168H 04/03/20 20:06: Glucometer 235H 04/04/20 05:40: Glucometer 123H 04/04/20 10:50: Glucometer 176H 04/04/20 16:12: Glucometer 153H 04/04/20 21:21: Glucometer 165H 04/05/20 05:28: Glucometer 90 04/05/20 11:19: Glucometer 145H 04/05/20 12:55: White Blood Count 10.7, Red Blood Count 3.79L, Hemoglobin 9.6L, Hematocrit 31L, Mean Corpuscular Volume 82, Mean Corpuscular Hemoglobin 25, Mean Corpuscular Hemoglobin Concent 31L, Red Cell Distribution Width 15.3H, Platelet Count 511H, Mean Platelet Volume 10.3, Immature Granulocyte % (Auto) 1, Neutrophils (%) (Auto) 80H, Lymphocytes (%) (Auto) 11L, Monocytes (%) (Auto) 7, Eosinophils (%) (Auto) 1, Basophils (%) (Auto) 1, Neutrophils # (Auto) 8.6H, Lymphocytes # (Auto) 1.2, Monocytes # (Auto) 0.7, Eosinophils # (Auto) 0.1, Basophils # (Auto) 0.1, Immature Granulocyte # (Auto) 0.1, Sodium Level 135, Potassium Level 3.7, Chloride Level 94L, Carbon Dioxide Level 28, Anion Gap 13, Blood Urea Nitrogen 22H, Creatinine 1.21, Estimat Glomerular Filtration Rate 59, BUN/Creatinine Ratio 18, Glucose Level 139H, Calcium Level 9.1, Corrected Calcium 9.5, Total Bilirubin 1.7H, Aspartate Amino Transf (AST/SGOT) 42H, Alanine Aminotransferase (ALT/SGPT) 36, Alkaline Phosphatase 71, Total Protein 7.2, Albumin 3.5 04/05/20 15:21: Glucometer 214H 04/05/20 19:51: Glucometer 269H 04/06/20 06:14: Glucometer 190H 04/06/20 10:36: Glucometer 172H Pending Labs Laboratory Tests 03/30/20 15:29: Glucometer 146 03/30/20 21:36: Glucometer 181 03/31/20 05:39: Glucometer 108 03/31/20 10:33: Glucometer 210 03/31/20 15:34: Glucometer 193 03/31/20 20:11: Glucometer 213 04/01/20 05:21: White Blood Count 7.8, Red Blood Count 3.67, Hemoglobin 9.5, Hematocrit 29, Mean Corpuscular Volume 80, Mean Corpuscular Hemoglobin 26, Mean Corpuscular Hemoglobin Concent 32, Red Cell Distribution Width 15.2, Platelet Count 276, Mean Platelet Volume 11.7, Neutrophils (%) (Auto) 71, Lymphocytes (%) (Auto) 16, Monocytes (%) (Auto) 10, Eosinophils (%) (Auto) 3, Basophils (%) (Auto) 0, Neutrophils # (Auto) 5.5, Lymphocytes # (Auto) 1.2, Monocytes # (Auto) 0.8, E osinophils # (Auto) 0.2, Basophils # (Auto) 0.0, Sodium Level 135, Potassium Level 3.5, Chloride Level 99, Carbon Dioxide Level 23, Anion Gap 13, Blood Urea Nitrogen 21, Creatinine 0.98, Estimat Glomerular Filtration Rate > 60, BUN/Creatinine Ratio 21, Glucose Level 150, Calcium Level 8.1, Corrected Calcium 8.7, Iron Level 27, Total Bilirubin 1.4, Aspartate Amino Transf (AST/SGOT) 35, Alanine Aminotransferase (ALT/SGPT) 37, Alkaline Phosphatase 63, Total Protein 6.7, Albumin 3.2 04/01/20 11:23: Glucometer 168 04/01/20 15:48: Glucometer 133 04/01/20 20:14: Glucometer 280 04/02/20 05:50: Glucometer 168 04/02/20 11:23: Glucometer 190 04/02/20 15:41: Glucometer 193 04/02/20 20:21: Glucometer 219 04/03/20 06:54: Glucometer 165 04/03/20 11:55: Glucometer 149 04/03/20 15:29: Glucometer 168 04/03/20 20:06: Glucometer 235 04/04/20 05:40: Glucometer 123 04/04/20 10:50: Glucometer 176 04/04/20 16:12: Glucometer 153 04/04/20 21:21: Glucometer 165 04/05/20 05:28: Glucometer 90 04/05/20 11:19: Glucometer 145 04/05/20 12:55: White Blood Count 10.7, Red Blood Count 3.79, Hemoglobin 9.6, Hematocrit 31, Mean Corpuscular Volume 82, Mean Corpuscular Hemoglobin 25, Mean Corpuscular Hemoglobin Concent 31, Red Cell Distribution Width 15.3, Platelet Count 511, Mean Platelet Volume 10.3, Immature Granulocyte % (Auto) 1, Neutrophils (%) (Auto) 80, Lymphocytes (%) (Auto) 11, Monocytes (%) (Auto) 7, Eosinophils (%) (Auto) 1, Basophils (%) (Auto) 1, Neutrophils # (Auto) 8.6, Lymphocytes # (Auto) 1.2, Monocytes # (Auto) 0.7, Eosinophils # (Auto) 0.1, Basophils # (Auto) 0.1, Immature Granulocyte # (Auto) 0.1, Sodium Level 135, Potassium Level 3.7, Chloride Level 94, Carbon Dioxide Level 28, Anion Gap 13, Blood Urea Nitrogen 22, Creatinine 1.21, Estimat Glomerular Filtration Rate 59, BUN/Creatinine Ratio 18, Glucose Level 139, Calcium Level 9.1, Corrected Calcium 9.5, Total Bilirubin 1.7, Aspartate Amino Transf (AST/SGOT) 42, Alanine Aminotransferase (ALT/SGPT) 36, Alkaline Phosphatase 71, Total Protein 7.2, Albumin 3.5 04/05/20 15:21: Glucometer 214 04/05/20 19:51: Glucometer 269 04/06/20 06:14: Glucometer 190 04/06/20 10:36: Glucometer 172 Discharge Home Medications: Active Scripts Active Senna-Time S Tablet (Sennosides/Docusate Sodium) 1 Each Tablet 2 Ea PO BID Alprazolam 0.25 Mg Tablet 0.25 Mg PO Q8H PRN Percocet 5-325 mg Tablet (Oxycodone HCl/Acetaminophen) 1 Each Tablet 1 Tab PO Q2HR PRN Aspirin EC (Aspirin) 81 Mg Tablet.dr 81 Mg PO DAILY Metoprolol Succinate 50 Mg Tab.er.24h 50 Mg PO DAILY Reported Crestor (Rosuvastatin Calcium) 5 Mg Tablet 5 Mg PO DAILY Nesina (Alogliptin Benzoate) 25 Mg Tablet 25 Mg PO DAILY Spiriva Respimat 2.5MCG/ACTUATION (Tiotropium [place]er) 4 Gm Mist.inhal 2 Puff IH DAILY Magnesium (Magnesium Oxide) 400 Mg Tablet 1,000 Mg PO DAILY TAKES 2 & 1/2 (400MG) TABLETS Flomax (Tamsulosin HCl) 0.4 Mg Cap 0.4 Mg PO BID Multivitamins (Multivitamin) 1 Each Tablet 1 Tab PO DAILY Omeprazole 20 Mg Capsule.dr 40 Mg PO DAILY TAKES 2 (20MG) CAPSULES Potassium Chloride 20 Meq Tab.er.prt 30 Meq PO DAILY TAKES 1 & 1/2 (20MEQ) TABLET Pioglitazone HCl 30 Mg Tablet 15 Mg PO DAILY TAKES 1/2 (30MG) TABLET Hydrochlorothiazide 25 Mg Tablet 25 Mg PO DAILY Lisinopril 40 Mg Tablet 20 Mg PO DAILY TAKES 1/2 (40MG) TABLET Amlodipine Besylate 10 Mg Tablet 5 Mg PO DAILY TAKES 1/2 (10MG) TABLET Metformin HCl 1,000 Mg Tablet 1,000 Mg PO BID Lantus (Insulin Glargine,Hum.rec.anlog) 100 Unit/1 Ml Vial 50 Unit SQ BID Eliquis (Apixaban) 5 Mg Tablet 5 Mg PO BID Calcium 500 + D Tablet (Calcium Carbonate/Vitamin D3) 1 Each Tablet 3 Tab PO DAILY Finasteride 5 Mg Tablet 5 Mg PO DAILY Furosemide 40 Mg Tablet 40 Mg PO DAILY Flonase Allergy Relief (Fluticasone Propionate) 9.9 Ml [place].susp 2 Sprays NS DAILY Proventil Hfa (Albuterol Sulfate) 6.7 Gm Hfa.aer.ad 2 Puff IH Q6H PRN Instructions to patient/family Please see electronic discharge instructions given to patient. Diagnosis/Problems Diagnosis/Problems (1) Status post left knee replacement (2) Postoperative anemia Status: Acute (3) Fever Status: Acute (4) T2DM (type 2 diabetes mellitus) Status: Chronic (5) BPH (benign prostatic hyperplasia) Status: Chronic (6) ISAAK (obstructive sleep apnea) Status: Chronic (7) HLD (hyperlipidemia) Status: Chronic (8) HTN (hypertension) Status: Chronic (9) GERD (gastroesophageal reflux disease) Status: Chronic (10) A-fib Status: Chronic (11) COPD (chronic obstructive pulmonary disease) Status: Chronic Clinical Quality Measures DVT/VTE Risk/Contraindication: Risk Factor Score Per Nursin RFS Level Per Nursing on Admit: 4+=Very High MAREN GUTIERREZ DO Apr 06, 2020 06:31
[2020-04-06 08:00] VITALS: BP 137/68
[2020-04-06] MEDS: UMECLIDINIUM BROMIDE (INCRUSE ELLIPTA) 7'S IH SCH (08:50)
[2020-04-06] MEDS: ROSUVASTATIN 5 MG (CRESTOR) TABLET PO SCH (08:51)
[2020-04-06] MEDS: APIXABAN 5 MG (ELIQUIS) TABLET PO SCH (08:51)
[2020-04-06] MEDS: TAMSULOSIN 0.4 MG (FLOMAX) CAP PO SCH (08:51)
[2020-04-06] MEDS: metFORMIN 500 MG (GLUCOPHAGE) TAB PO SCH (08:51)
[2020-04-06] MEDS: DOCUSATE SODIUM 100 MG (COLACE) CAP PO SCH (08:51)
[2020-04-06] MEDS: HYDROCHLOROTHIAZIDE 25 MG (HCTZ) TAB PO SCH (08:51)
[2020-04-06] MEDS: ASPIRIN E.C. 81 MG (ECOTRIN) TAB PO SCH (08:51)
[2020-04-06] MEDS: FINASTERIDE (PROSCAR) 5 MG TAB PO SCH (08:51)
[2020-04-06] MEDS: PIOGLITAZONE 30MG (ACTOS) TAB PO SCH (08:52)
[2020-04-06] MEDS: FUROSEMIDE 40 MG (LASIX) TAB PO SCH (08:53)
[2020-04-06] MEDS: PANTOPRAZOLE 40 MG (PROTONIX) TAB PO SCH (08:53)
[2020-04-06] MEDS: meTOproloL SUCCINATE 50 MG (TOPROL XL) TAB PO SCH (08:53)
[2020-04-06] MEDS: amLODIPine 10 MG (NORVASC) TAB PO SCH (08:53)
[2020-04-06] MEDS: FLUTICASONE NASAL SPRAY (FLONASE) 16 GM BTL NS SCH (08:55)
[2020-04-06] MEDS: IRON SUCROSE 200 MG/10 ML (VENOFER) VIAL IV SCH (08:55)
[2020-04-06] MEDS: SENNA W/DOCUSATE (SENOKOT S) TABLET PO SCH (08:59)
[2020-04-06] MEDS: polyethylene glycoL POWDER 17 GM (MIRALAX) PACK PO SCH (08:59)
[2020-04-06] MEDS ORDERED: lisINopril 20 MG (PRINIVIL) TABLET PO SCH (09:00)
[2020-04-06 12:26] VITALS: BP 137/68
--- NOTE | 2020-04-08 08:28 | Therapy Team Discharge Summary ---
Therapy Discharge Summary Discharge Recommendations Date of Discharge Apr 06, 2020 at 11:50 Physical Therapy Patient came to rehab with a right TKR. Upon evaluation patient was dependent for bed mobility and transfers, and ambulated 10' with a rolling walker with min assist. Patient has been performing bed mobility and transfer training, balance and endurance training, functional strengthening, stair training, gait training, and education. Patient has made fair progress and has met his snf goals for bed mobility, supine <-> sit, and stairs. Now, patient performs bed mobility and supine <-> sit with independence, sit <-> stand and transfers with SBA, car transfer min assist, ambulated 150' with a rolling walker with SBA (including 50' with at least 2 turns of 90 degrees and 10' over an uneven surface), and can go up and down 4 steps using 2 handrails with CGA. Patient has been discharged from this facility and will be discharged from PT at this time. Occupational Therapy Decreased Activ Tolerance, Decreased UE Strength, Dependent Transfers, Edema, Impaired Funct Balance, Impaired I ADL's, Impaired Self-Care Skills PT Visual Merchandising Associate Goals Nursing Home Goals PT Visual Merchandising Associate Goals Time Frame: Apr 13, 2020 Roll Left to Right (QC): 4 Sit to Lying (QC): 4 Lying-Sitting on Side/Bed(QC): 4 Sit to Stand (QC): 6 Chair/Ele-ja-Cvoty Xfer(QC): 6 Car Transfer (QC): 6 Does the Patient Walk: Yes Walk 10 feet (QC): 6 Walk 10ft-Uneven Surface(QC): 6 Walk 50ft with 2 Turns (QC): 6 Walk 150 ft (QC): 6 Wheel 50 feet with 2 turns (QC: 9 1 Step (curb) (QC): 4 4 Steps (QC): 4 12 Steps (QC): 9 Picking up an Object (QC): 9 OT Visual Merchandising Associate Goals Nursing Home Goals Time Frame: Apr 15, 2020 Eating (FIM): 6 Eating (QC): 6 Oral Hygiene (QC): 6 Shower/Bathe Self (QC): 4 Upper Body Dressing (QC): 6 Lower Body Dressing (QC): 6 On/Off Footwear (QC): 6 Toileting(FIM): 6 Toileting Hygiene (QC): 6 Toilet/Commode Transfer (QC): 6 Additional Goals: 1-Demonstrate ADL Tasks, 2-Verbalize Understanding, 3- ImproveStrength/Lucero 1=Demonstrate adherence to instructed precautions during ADL tasks. 2=Patient will verbalize/demonstrate understanding of assistive devices/modifications for ADL. 3=Patient will improve strength/tolerance for activity to enable patient to perform ADL's. RICKEY SOUSA PT Apr 08, 2020 08:28
--- NOTE | 2020-04-08 11:21 | Therapy Team Discharge Summary ---
Therapy Discharge Summary Discharge Recommendations Date of Discharge Apr 06, 2020 at 11:50 Therapy D/C Recommendations: Home w/ Family Support, Occupational Therapy Home Care Occupational Therapy Pt. has been seen by occupational therapy to increase overall strength and independence with daily skills. Pt. has met good progress, but does still require min assist/SBA for some ADL tasks. Pt. is discharging home with support from family and friend, as well as recommended home health OT. Recommend adaptive equipment for continued ADL skills, as well as shower chair. Decreased Activ Tolerance, Impaired I ADL's, Impaired Self-Care Skills PT [employer] Professor Goals Detention Goals PT Detention Goals Time Frame: Apr 13, 2020 Roll Left to Right (QC): 4 Sit to Lying (QC): 4 Lying-Sitting on Side/Bed(QC): 4 Sit to Stand (QC): 6 Chair/Nyq-im-Ustfq Xfer(QC): 6 Car Transfer (QC): 6 Does the Patient Walk: Yes Walk 10 feet (QC): 6 Walk 10ft-Uneven Surface(QC): 6 Walk 50ft with 2 Turns (QC): 6 Walk 150 ft (QC): 6 Wheel 50 feet with 2 turns (QC: 9 1 Step (curb) (QC): 4 4 Steps (QC): 4 12 Steps (QC): 9 Picking up an Object (QC): 9 OT [employer] Professor Goals Aqu[employer]ulture And Fisheries Professor Goals Time Frame: Apr 15, 2020 Eating (FIM): 6 (met) Eating (QC): 6 (met) Oral Hygiene (QC): 6 (not met) Shower/Bathe Self (QC): 4 (met) Upper Body Dressing (QC): 6 (not met) Lower Body Dressing (QC): 6 (not met) On/Off Footwear (QC): 6 (not met) Toileting(FIM): 6 (not met) Toileting Hygiene (QC): 6 (not met) Toilet/Commode Transfer (QC): 6 (not met) Additional Goals: 1-Demonstrate ADL Tasks, 2-Verbalize Understanding, 3- ImproveStrength/Lucero 1=Demonstrate adherence to instructed precautions during ADL tasks. 2=Patient will verbalize/demonstrate understanding of assistive devices/modifications for ADL. 3=Patient will improve strength/tolerance for activity to enable patient to perform ADL's. NELSON MERRITT OT Apr 08, 2020 11:21
== END 2020-04-06 11:50 | disposition home health service (06) | DRG 560 ==
PROVIDERS: ADMIT Internal Medicine; ATTEND Internal Medicine
DX: Z47.1 Aftercare following joint replacement surgery (principal); Z68.42 Body mass index [BMI] 45.0-49.9, adult; I48.0 Paroxysmal atrial fibrillation; I10 Essential (primary) hypertension; E78.5 Hyperlipidemia, unspecified; E78.00 Pure hypercholesterolemia, unspecified; G47.33 Obstructive sleep apnea (adult) (pediatric); E66.9 Obesity, unspecified; K21.9 Gastro-esophageal reflux disease without esophagitis; M19.91 Primary osteoarthritis, unspecified site; E11.9 Type 2 diabetes mellitus without complications; D64.9 Anemia, unspecified; N40.0 Benign prostatic hyperplasia without lower urinary tract symptoms; J44.9 Chronic obstructive pulmonary disease, unspecified; I87.8 Other specified disorders of veins; M10.9 Gout, unspecified; R42 Dizziness and giddiness; Z23 Encounter for immunization; Z87.891 Personal history of nicotine dependence; Z79.4 Long term (current) use of insulin; Z79.01 Long term (current) use of anticoagulants
CPT/HCPCS: 36415; 76937; 80053; 82962; 83540; 85025; 90662; 94640; 94760

== ENCOUNTER → 2020-06-10 | Outpatient (CLI) | payer MEDICARE, OTHER ==
[~2020-06-10] MED LIST changes: +ALPR.25T PO; +AMLO-251 PO; -AMLO10TA7 PO; +ASPI-1238 PO; -BISACODYL 10 MG SUPP (DULCOLAX) PR PRN; -CALCIUM CARBONATE 500 MG (TUMS) TAB.CHEW PO PRN; -DOCUSATE SODIUM 100 MG (COLACE) CAP PO PRN; -FLEET ENEMA ADULT 1 EA BTL PR PRN; -LACTULOSE SYRUP 10GM/15ML (ENULOSE) 30ML UDC PO PRN; -LOPERAMIDE 2 MG (IMODIUM) TABLET PO PRN; -ONDANSETRON 4 MG (ZOFRAN) ORAL DISSOLVE TAB PO PRN; +OXYC1TAB87 PO; +SENN-20 PO; -SENNA W/DOCUSATE (SENOKOT S) TABLET PO SCH; -diphenhydrAMINE 25 MG TAB (BENADRYL) PO PRN; -guaiFENesin/CODEINE (ROBITUSSIN AC) 10ML UDC PO PRN
== END ==
LOC: LABNPT 06-05 08:44
PROVIDERS: ATTEND Internal Medicine
DX: U07.1 COVID-19 (principal)
CPT/HCPCS: 87635

== ENCOUNTER 2020-07-30 16:16 | Emergency (ER) | payer MEDICARE, OTHER ==
[~2020-07-30] VITALS: Ht 72 cm; Wt 148.0 kg
[2020-07-30] MEDS ORDERED: MAGNESIUM OXIDE (MAG-OX)400 MG TAB PO ONE (16:30)
[2020-07-30] MEDS ORDERED: NS IV 1000 ML 1,000 ML IV SCH (16:30)
[2020-07-30] MEDS ORDERED: CALCIUM CARBONATE 500 MG (TUMS) TAB.CHEW PO SCH (16:30)
[2020-07-30] MEDS ORDERED: CALCIUM GLUC. 10% 4.65 MEQ/10 ML VIAL IV ONE (16:45)
[2020-07-30 16:48] LABS: BASOPHILS % (AUTO) 0 % (0-10); EOSINOPHILS % (AUTO) 0 % (0-10); HEMATOCRIT 35 % (40-54); HEMOGLOBIN 11.3 g/dL (13.3-17.7); LYMPHOCYTES # (AUTO) 0.5 10^3/uL (1.0-4.0); LYMPHOCYTES % (AUTO) 5 % (12-44); MEAN CORPUSCULAR HEMOGLOBIN 27 pg (25-34); MEAN CORPUSCULAR HGB CONC 32 g/dL (32-36); MEAN CORPUSCULAR VOLUME 84 fL (80-99); MEAN PLATELET VOLUME 10.6 fL (9.0-12.2); MONOCYTES # (AUTO) 0.2 10^3/uL (0.0-1.0); MONOCYTES % (AUTO) 2 % (0-12); NEUTROPHILS # (AUTO) 10.1 10^3/uL (1.8-7.8); NEUTROPHILS % (AUTO) 93 % (42-75); PLATELET COUNT 265 10^3/uL (130-400); WHITE BLOOD COUNT 10.9 10^3/uL (4.3-11.0)
[2020-07-30] MEDS: MAGNESIUM 1 GM/100 ML IVPB 100 ML IV SCH ×3 (16:48→17:55)
--- NOTE | 2020-07-30 16:50 | ED General ---
General Chief Complaint: General Problems/Pain Stated Complaint: INFUSION PER DR FRANCES Nursing Triage Note: he was sent here from Dr. Frances with abnormal magnesium and calcium. Pt feels fine other than having trouble walking and he feels like that is from covid. He had covid in may Nursing Sepsis Screen: No Definite Risk Source of Information: Patient Exam Limitations: No Limitations History of Present Illness Date Seen by Provider: Jul 30, 2020 Time Seen by Provider: 16:48 Initial Comments Patient has had some swelling in his legs ongoing for a while. Subsequently his Lasix dose was doubled which helped with the swelling. Labs were checked today showing some hypocalcemia and hypomagnesemia with a magnesium of 0.7 and calcium of 6.4. He has had some spasms of his hands he reports. He was referred to the emergency room. Timing/Duration: 1-2 Days Severity: Moderate Associated Systoms: Denies Symptoms Allergies and Home Medications Allergies Coded Allergies: No Known Drug Allergies (Unverified , 03/27/20) Home Medications ALPRAZolam 0.25 Mg Tablet, 0.25 MG PO Q8H PRN for ANXIETY Prescribed by: MAREN GUTIERREZ on 04/06/20 0623 Albuterol Sulfate 6.7 Gm Hfa.aer.ad, 2 PUFF IH Q6H PRN for SHORTNESS OF BREATH, (Reported) Alogliptin Benzoate 25 Mg Tablet, 25 MG PO DAILY, (Reported) Amlodipine Besylate 10 Mg Tablet, 5 MG PO DAILY, (Reported) TAKES 1/2 (10MG) TABLET Apixaban 5 Mg Tablet, 5 MG PO BID, (Reported) Aspirin 81 Mg Tablet.dr, 81 MG PO DAILY Prescribed by: MAREN GUTIERREZ on 04/06/20 0622 Calcium Carbonate/Vitamin D3 1 Each Tablet, 3 TAB PO DAILY, (Reported) Finasteride 5 Mg Tablet, 5 MG PO DAILY, (Reported) Fluticasone Propionate 9.9 Ml [place].susp, 2 SPRAYS NS DAILY, (Reported) Furosemide 40 Mg Tablet, 40 MG PO DAILY, (Reported) Hydrochlorothiazide 25 Mg Tablet, 25 MG PO DAILY, (Reported) Insulin Glargine,Hum.rec.anlog 100 Unit/1 Ml Vial, 50 UNIT SQ BID, (Reported) Lisinopril 40 Mg Tablet, 20 MG PO DAILY, (Reported) TAKES 1/2 (40MG) TABLET Magnesium Oxide 400 Mg Tablet, 1,000 MG PO DAILY, (Reported) TAKES 2 & 1/2 (400MG) TABLETS Metformin HCl 1,000 Mg Tablet, 1,000 MG PO BID, (Reported) Metoprolol Succinate 50 Mg Tab.er.24h, 50 MG PO DAILY Prescribed by: MAREN GUTIERREZ on 04/06/20621 Multivitamin 1 Each Tablet, 1 TAB PO DAILY, (Reported) Omeprazole 20 Mg Capsule.dr, 40 MG PO DAILY, (Reported) TAKES 2 (20MG) CAPSULES Oxycodone HCl/Acetaminophen 1 Each Tablet, 1 TAB PO Q2HR PRN for PAIN-MODERATE (5-7) Prescribed by: MAREN GUTIERREZ on 04/06/20622 Pioglitazone HCl 30 Mg Tablet, 15 MG PO DAILY, (Reported) TAKES 1/2 (30MG) TABLET Potassium Chloride 20 Meq Tab.er.prt, 30 MEQ PO DAILY, (Reported) TAKES 1 & 1/2 (20MEQ) TABLET Rosuvastatin Calcium 5 Mg Tablet, 5 MG PO DAILY, (Reported) Sennosides/Docusate Sodium 1 Each Tablet, 2 EA PO BID Prescribed by: MAREN GUTIERREZ on 04/06/20621 Tamsulosin HCl 0.4 Mg Cap, 0.4 MG PO BID, (Reported) Tiotropium [place] 4 Gm Mist.inhal, 2 PUFF IH DAILY, (Reported) Patient Home Medication List Home Medication List Reviewed: Yes Review of Systems Review of Systems Constitutional: see HPI EENTM: see HPI Respiratory: no symptoms reported Cardiovascular: no symptoms reported Genitourinary: no symptoms reported Musculoskeletal: see HPI, muscle pain Skin: no symptoms reported Psychiatric/Neurological: No Symptoms Reported Hematologic/Lymphatic: No Symptoms Reported Immunological/Allergic: no symptoms reported Past Dhuwcuc-Jywbtp-Syemya Hx Patient Social History Type Used: Cigarettes Former Smoker, Quit: Sep 11, 1995 2nd Hand Smoke Exposure: Yes Recent Infectious Disease Expo: No Recent Hopitalizations: No Immunizations Up To Date Tetanus Booster (TDap): Unknown Date of Pneumonia Vaccine: Apr 19, 2017 Date of Influenza Vaccine: Apr 17, 2019 Seasonal Allergies Seasonal Allergies: Yes Past Medical History Surgeries: Yes (CYST FROM NECK, BOWEL RESECTION, ELBOW, KNEE SCOPES) Bowel Surgery, Orthopedic Respiratory: Yes Sleep Apnea, COPD Currently Using CPAP: Yes Currently Using BIPAP: Yes Cardiac: Yes Atrial Fibrillation, High Cholesterol, Hypertension Neurological: No Reproductive Disorders: No Sexually Transmitted Disease: No HIV/AIDS: No Genitourinary: Yes Prostate Problems Gastrointestinal: Yes Gastroesophageal Reflux, Chronic Diarrhea Musculoskeletal: Yes (HANDS AND KNEES) Arthritis Endocrine: Yes Diabetes, Insulin dep HEENT: Yes (GLASSES) Loss of Vision: Denies Hearing Impairment: Hard of Hearing, Bilateral Hearing Aide Cancer: No Psychosocial: No Integumentary: No Blood Disorders: No Adverse Reaction/Blood Tranf: No (N/A) Family Medical History Colon cancer No Pertinent Family Hx Physical Exam Vital Signs Vital Signs - First Documented 07/30/20 16:22 Temp 36.7 Pulse 94 Resp 20 B/P (MAP) 138/65 (89) Pulse Ox 96 O2 Delivery Room Air Capillary Refill : Less Than 3 Seconds Height, Weight, BMI Height: 6'1.00" Weight: 343lbs. 0.0oz. 155.313125rp; 285.00 BMI Method:Stated General Appearance: No Apparent Distress, WD/WN, Obese Eyes: Bilateral Eye Normal Inspection, Bilateral Eye PERRL, Bilateral Eye EOMI Neck: Full Range of Motion, Normal Inspection Respiratory: Lungs Clear, Normal Breath Sounds, No Accessory Muscle Use, No Respiratory Distress Cardiovascular: Regular Rate, Rhythm, Normal Peripheral Pulses Gastrointestinal: Normal Bowel Sounds, Non Tender, Soft Extremity: Normal Capillary Refill, Normal Inspection Neurologic/Psychiatric: Alert, Oriented x3 Skin: Normal Color, Warm/Dry Progress/Results/Core Measures Suspected Sepsis Recent Fever Within 48 Hours: No Infection Criteria Present: None New/Unexplained Altered Menta: No Sepsis Screen: No Definite Risk SIRS Temperature: Pulse: 94 Respiratory Rate: 20 Laboratory Tests 07/30/20 16:40: White Blood Count 10.9 Blood Pressure 138 /65 Mean: 89 Laboratory Tests 07/30/20 16:40: Creatinine 1.11, Platelet Count 265, Total Bilirubin 2.7H Results/Orders Lab Results Laboratory Tests Test 07/30/20 16:40 Range/Units White Blood Count 10.9 4.3-11.0 10^3/uL Red Blood Count 4.22 L 4.30-5.52 10^6/uL Hemoglobin 11.3 L 13.3-17.7 g/dL Hematocrit 35 L 40-54 % Mean Corpuscular Volume 84 80-99 fL Mean Corpuscular Hemoglobin 27 25-34 pg Mean Corpuscular Hemoglobin Concent 32 32-36 g/dL Red Cell Distribution Width 15.5 H 10.0-14.5 % Platelet Count 265 130-400 10^3/uL Mean Platelet Volume 10.6 9.0-12.2 fL Immature Granulocyte % (Auto) 1 % Neutrophils (%) (Auto) 93 H 42-75 % Lymphocytes (%) (Auto) 5 L 12-44 % Monocytes (%) (Auto) 2 0-12 % Eosinophils (%) (Auto) 0 0-10 % Basophils (%) (Auto) 0 0-10 % Neutrophils # (Auto) 10.1 H 1.8-7.8 10^3/uL Lymphocytes # (Auto) 0.5 L 1.0-4.0 10^3/uL Monocytes # (Auto) 0.2 0.0-1.0 10^3/uL Eosinophils # (Auto) 0.0 0.0-0.3 10^3/uL Basophils # (Auto) 0.0 0.0-0.1 10^3/uL Immature Granulocyte # (Auto) 0.1 0.0-0.1 10^3/uL Neutrophils % (Manual) 92 % Lymphocytes % (Manual) 7 % Monocytes % (Manual) 1 % Blood Morphology Comment NORMAL Sodium Level 134 L 135-145 MMOL/L Potassium Level 3.7 3.6-5.0 MMOL/L Chloride Level 96 L 98-107 MMOL/L Carbon Dioxide Level 24 21-32 MMOL/L Anion Gap 14 5-14 MMOL/L Blood Urea Nitrogen 21 H 7-18 MG/DL Creatinine 1.11 0.60-1.30 MG/DL Estimat Glomerular Filtration Rate > 60 BUN/Creatinine Ratio 19 Glucose Level 243 H 70-105 MG/DL Calcium Level 6.7 L 8.5-10.1 MG/DL Corrected Calcium 6.7 L 8.5-10.1 MG/DL Magnesium Level 0.7 *L 1.6-2.4 MG/DL Total Bilirubin 2.7 H 0.1-1.0 MG/DL Aspartate Amino Transf (AST/SGOT) 30 5-34 U/L Alanine Aminotransferase (ALT/SGPT) 40 0-55 U/L Alkaline Phosphatase 71 40-136 U/L Total Protein 8.2 6.4-8.2 GM/DL Albumin 4.0 3.2-4.5 GM/DL My Orders Orders - TERRI CISSE APRN Cbc With Automated Diff (07/30/20 16:21) Comprehensive Metabolic Panel (07/30/20 16:21) Ionized Calcium (07/30/20 16:21) Ed Iv/Invasive Line Start (07/30/20 16:21) Magnesium (07/30/20 16:21) Ekg Tracing (07/30/20 16:21) Magnesium 1 Gm/100 Ml Ivpb (Magnesium Zambrano (07/30/20 16:30) Magnesium Oxide Tablet (Mag Ox Tablet) (07/30/20 16:30) Calcium Carbonate Chew Tablet (Antacid C (07/30/20 16:30) Ns Iv 1000 Ml (Sodium Chloride 0.9%) (07/30/20 16:30) Calcium Gluconate 10% Inj (Calcium Glu (07/30/20 16:45) Manual Differential (07/30/20 16:40) Medications Given in ED Current Medications Medications Dose Ordered Sig/Francois Route Start Time Stop Time Status Last Admin Dose Admin Calcium Gluconate 9.3 meq ONCE ONCE IV 07/30/20 16:45 07/30/20 16:46 DC 07/30/20 16:52 9.3 MEQ Magnesium Oxide 400 mg ONCE ONCE PO 07/30/20 16:30 07/30/20 16:31 DC 07/30/20 16:52 400 MG Vital Signs/I&O 07/30/20 16:22 Temp 36.7 Pulse 94 Resp 20 B/P (MAP) 138/65 (89) Pulse Ox 96 O2 Delivery Room Air Capillary Refill : Less Than 3 Seconds Blood Pressure Mean: 89 Departure Communication (Admissions) We will give 4 g of IV mag sulfate as well as 400 mg of magnesium oxide orally. Will give 1000 mg of calcium carbonate p.o. and have him do this 3 times a day at home. Given 2 g of calcium gluconate IV in the emergency room. Impression Primary Impression: Electrolyte abnormality Disposition: 01 HOME, SELF-CARE Condition: Stable Departure-Patient Inst. Decision time for Depature: 17:46 Referrals: KATEY FRANCES MD (PCP/Family) Primary Care Physician Patient Instructions: Hypocalcemia Add. Discharge Instructions: 1. Return to ER for any concerns 2. Take the supplements as directed. Follow-up with Mary as scheduled. All discharge instructions reviewed with patient and/or family. Voiced understanding. Scripts Calcium Carbonate (Calcium Carbonate) 500 Mg Tablet 1000 MG PO TID, #30 TAB Prov: TERRI CISSE APRN 07/30/20 Magnesium Oxide (Magnesium Oxide) 400 Mg Tablet 400 MG PO BID, #14 TAB Prov: TERRI CISSE APRN 07/30/20 TERRI CISSE APRN Jul 30, 2020 16:50
[2020-07-30 16:58] LABS: CHLORIDE 96 MMOL/L (98-107); POTASSIUM 3.7 MMOL/L (3.6-5.0); SODIUM 134 MMOL/L (135-145)
[2020-07-30 17:00] LABS: CALCIUM 6.7 MG/DL (8.5-10.1)
[2020-07-30 17:01] LABS: GLUCOSE 243 MG/DL (70-105); TOTAL PROTEIN 8.2 GM/DL (6.4-8.2)
[2020-07-30 17:02] LABS: CARBON DIOXIDE 24 MMOL/L (21-32)
[2020-07-30 17:03] LABS: BILIRUBIN,TOTAL 2.7 MG/DL (0.1-1.0)
[2020-07-30 17:04] LABS: ALKALINE PHOSPHATASE 71 U/L (40-136); CREATININE SERUM 1.11 MG/DL (0.60-1.30); GFR ESTIMATED > 60
[2020-07-30 17:05] LABS: BUN/CREATININE RATIO 19
[2020-07-30 17:07] LABS: ALANINE AMINOTRANSFERASE 40 U/L (0-55)
[2020-07-30 17:11] LABS: MAGNESIUM 0.7 MG/DL (1.6-2.4)
[2020-07-30 17:21] LABS: LYMPHOCYTES % (MANUAL) 7 %; MONOCYTES % (MANUAL) 1 %; NEUTROPHILS % (MANUAL) 92 %; RBC MORPH NORMAL
[2020-07-30] MEDS ORDERED: CALC500T64 PO (17:49)
[2020-07-30] MEDS ORDERED: MAGN400T8 PO (17:49)
[2020-07-30 19:24] LABS: ALBUMIN 3.7 GM/DL (3.2-4.5); CHLORIDE 96 MMOL/L (98-107); POTASSIUM 3.6 MMOL/L (3.6-5.0); SODIUM 133 MMOL/L (135-145)
[2020-07-30 19:25] LABS: CALCIUM 6.9 MG/DL (8.5-10.1)
[2020-07-30 19:26] LABS: GLUCOSE 284 MG/DL (70-105)
[2020-07-30 19:27] LABS: TOTAL PROTEIN 7.5 GM/DL (6.4-8.2)
[2020-07-30 19:28] LABS: BILIRUBIN,TOTAL 2.3 MG/DL (0.1-1.0); CARBON DIOXIDE 23 MMOL/L (21-32)
[2020-07-30 19:30] LABS: ALKALINE PHOSPHATASE 68 U/L (40-136); GFR ESTIMATED > 60
[2020-07-30 19:31] LABS: BUN/CREATININE RATIO 20
[2020-07-30 19:33] LABS: ALANINE AMINOTRANSFERASE 36 U/L (0-55); MAGNESIUM 1.9 MG/DL (1.6-2.4)
[2020-07-30 19:36] VITALS: BP 159/88
== END 2020-07-30 19:37 | disposition home or self-care (01) ==
LOC: EDUNIT# 16:16 → ER 16:19
DX: E87.8 Other disorders of electrolyte and fluid balance, not elsewhere classified (principal); E66.9 Obesity, unspecified; I10 Essential (primary) hypertension; E78.00 Pure hypercholesterolemia, unspecified; I48.91 Unspecified atrial fibrillation; J44.9 Chronic obstructive pulmonary disease, unspecified; E11.9 Type 2 diabetes mellitus without complications; K21.9 Gastro-esophageal reflux disease without esophagitis; Z68.45 Body mass index [BMI] 70 or greater, adult; Z80.0 Family history of malignant neoplasm of digestive organs; Z87.891 Personal history of nicotine dependence; Z79.01 Long term (current) use of anticoagulants; Z79.82 Long term (current) use of aspirin; Z79.4 Long term (current) use of insulin
CPT/HCPCS: 36415; 80053; 82330; 83735; 85007; 85027; 93005

== ENCOUNTER → 2020-08-31 | Outpatient (CLI) | payer MEDICARE, OTHER ==
[~2020-08-31] MED LIST changes: +CALC500T64 PO; -LISI40TA PO; +LISI40TA9 PO; +MAGN400T8 PO
== END ==
LOC: LAB 11:41
PROVIDERS: ATTEND Nurse Practitioner Family
DX: E87.5 Hyperkalemia (principal); I10 Essential (primary) hypertension
CPT/HCPCS: 36415; 84132

== ENCOUNTER → 2022-01-13 | Outpatient (CLI) | payer MEDICARE, OTHER ==
[~2022-01-13] MED LIST changes: +CYCL10TA25; -CYCL10TA9; -LEVO500T80; +LEVO500T81; -MAGN400T8 PO; +MGX400T PO; +OMEP20TA56 PO; -OMEP20TA7 PO; +POTA-179 PO; -POTA20TA15 PO
--- NOTE | 2022-01-13 13:40 | Diagnostic Imaging Report ---
INDICATION: Thyroid nodules. TECHNIQUE: Grayscale sonographic images of the thyroid gland. CORRELATION STUDY: 03/16/2019. FINDINGS: RIGHT LOBE: 4.9 x 2.1 x 1.8 cm. At the junction of the right lobe and isthmus, there is a predominantly solid slightly hypoechoic nodule with a few cystic components. This currently measures 2.4 x 1.5 x 2.8 cm (previously 2.2 x 1.8 x 2.1 cm). A few echogenic microcalcifications are present. LEFT LOBE: 4.6 x 1.4 x 1.6 cm. A small hypoechoic nodule with linear echogenic foci is noted near the left isthmus and measures 0.9 x 0.7 x 0.7 cm (previously 0.6 x 0.6 x 0.7 cm. IMPRESSION: Bilateral thyroid nodules with the dominant nodule at the junction of the right thyroid lobe and isthmus. The dominant nodule has shown interval enlargement and is TR 4-5, moderately suspicious. Given this in conjunction with the interval enlargement, fine-needle aspiration is recommended. (Normal gland size: 4-5 x 2 x 2 cm) Dictated by: Dictated on workstation # [id number]
== END ==
LOC: RAD 11:00
PROVIDERS: ATTEND Physician Assistant
DX: E04.2 Nontoxic multinodular goiter (principal)
CPT/HCPCS: 76536

== ENCOUNTER → 2022-02-11 | Day surgery (SDC) | payer MEDICARE, OTHER ==
[~2022-02-11] VITALS: Ht 185.4 cm; Wt 156.8 kg
[~2022-02-11] MED LIST changes: +LIDOCAINE 1% INJ 20 ML VIAL INJ ONE
--- NOTE | 2022-02-11 15:51 | Diagnostic Imaging Report ---
INDICATION: Enlarging nodule in the right aspect of the isthmus. The patient presents for ultrasound guided fine needle aspiration and biopsy. DETAILS OF THE PROCEDURE: The patient was brought to the procedure room and placed on the table in the supine position. Ultrasound imaging of the neck was performed to evaluate for an appropriate entry site. The neck was then prepped and draped in the usual sterile fashion. A small amount of 1% lidocaine was utilized for local anesthesia. A total 4 passes was made into the dominant solid nodule within the right aspect of the thyroid isthmus utilizing 25-gauge needles and fine-needle aspiration technique. A single pass was made with a Rotex needle and a Rotex biopsy was performed. The needles were removed and hemostasis was obtained. The patient tolerated the procedure well and left the Department in stable condition. IMPRESSION: Successful ultrasound guided fine needle aspiration and Rotex biopsy of the dominant solid mass in the right aspect of the thyroid isthmus. Pathology results are currently pending. Dictated by: Dictated on workstation # [id number]
== END ==
LOC: RAD 14:10
PROVIDERS: ATTEND Internal Medicine
DX: E04.1 Nontoxic single thyroid nodule (principal)
CPT/HCPCS: 10005; 88173; 88305

== ENCOUNTER → 2022-03-24 | Outpatient (CLI) | payer MEDICARE, OTHER ==
[~2022-03-24] MED LIST changes: +LEVO-55; -LEVO500T81; -LIDOCAINE 1% INJ 20 ML VIAL INJ ONE
[2022-03-24 12:08] LABS: CREATININE SERUM 1.39 MG/DL (0.60-1.30)
--- NOTE | 2022-03-24 14:17 | Diagnostic Imaging Report ---
PROCEDURE: CT abdomen and pelvis with and without contrast. TECHNIQUE: Precontrast acquisitions were acquired through the abdomen and pelvis. Multiple contiguous axial images were obtained through the abdomen and pelvis after the administration of intravenous contrast. Auto Exposure Controls were utilized during the CT exam to meet ALARA standards for radiation dose reduction. INDICATION: Urinary infections. Imaging through lung bases does show some extensive infiltrate throughout the right lower lobe and to a lesser degree in the left lower lobes suggestive of pneumonia. The liver and gallbladder are unremarkable. There is no biliary duct dilatation. The pancreas and spleen are unremarkable. No adrenal mass is detected. No renal calculi or ureteral calculi are seen. There is no hydronephrosis. Bilateral renal collecting systems and ureters are unremarkable. Bladder is unremarkable. Postoperative changes in the anterior abdominal wall with atrophy of the right rectus muscle is noted. The bowel loops are normal in caliber. There is no obstruction. There is diverticulosis of the descending and sigmoid colon but no evidence of acute diverticulitis. No free fluid or fluid collection is seen. No definite abdominal or pelvic lymphadenopathy is detected. IMPRESSION: 1. No evidence of urinary tract calculi, mass or obstruction. 2. Uncomplicated diverticulosis. 3. Bilateral lower lobe pulmonary infiltrates, greatest on the right suggestive of pneumonia. Dictated by: Dictated on workstation # [id number]
== END ==
LOC: RAD 13:10
PROVIDERS: ATTEND Specialist
DX: N30.80 Other cystitis without hematuria (principal); K57.90 Diverticulosis of intestine, part unspecified, without perforation or abscess without bleeding; R91.8 Other nonspecific abnormal finding of lung field
CPT/HCPCS: 36415; 74178; 82565

== ENCOUNTER → 2022-03-24 | Outpatient (CLI) | payer MEDICARE, OTHER ==
[~2022-03-24] MED LIST changes: +CATHETER FLUSH 10 ML SYR IV PRN; +HOLD METFORMIN - RECEIVED CONTRAST 20 ML VIAL IV SCH; +IOHEXOL 350 MG/ML 100 ML (OMNIPAQUE 350) VIAL IV ONE; +NS 100 ML (IVPB) BAG IV ONE
[2022-03-24 12:30] LABS: FREE T4 (FREE THYROXINE) 0.8 NG/DL (0.70-1.48)
== END ==
LOC: LAB 11:35
PROVIDERS: ATTEND Internal Medicine
DX: E11.9 Type 2 diabetes mellitus without complications (principal)
CPT/HCPCS: 36415; 83036; 84439; 84443